=== PATIENT | male | born 1965 | race Hispanic/Latino ===

== ENCOUNTER 2025-01-09 12:24 | Inpatient (IN) | payer SELFPAY ==
[2025-01-09] VITALS (14 sets, daily range): BP systolic 92–149; BP diastolic 41–73; PULSE 62–71; RESP 14–21; TEMP 98–98.6; O2SAT 99
[2025-01-09 19:30] LABS: IMMATURE GRANULOCYTE ABSOLUTE 0.02 K/uL (0-1); NUCLEATED RED BLOOD CELLS 0.0 % (0.0-0.19); PLATELET COUNT (AUTO) 246 K/uL (130-400); RED BLOOD CELL COUNT(AUTO) 3.79 MIL/uL (4.50-6.20); RED CELL DISTRIBUTION WIDTH 12.4 % (11.0-15.5); WHITE BLOOD COUNT (AUTO) 8.1 K/uL (4.8-10.8)
[2025-01-09 19:46] LABS: INR <= 0.93 (0.85-1.15)
--- NOTE | 2025-01-09 19:51 | HP ---
[facility] HISTORY AND PHYSICAL Date of Service: Jan 09, 2025 Time of Service: 19:51 HISTORY OF PRESENT ILLNESS: This is a 59-year-old Yoruba-speaking male with past medical history of hypertension and hyperlipidemia was transferred from [facility] possible fem-pop evaluation.As per patient he started having severe left foot pain 5 days ago and went to his PCP where he was advised to go to the ED for a possible DVT.While in [facility] a venous doppler was performed which revealed negative for DVT and an arterial doppler was also done and result showed total occlusion of the arterial ultrasound to the left proximal popliteal colloidal circulation .Reportedly patient developed intermittent claudication of left foot and a cardiology was consulted .Patient underwent an ultrasound guided vascular access of the right common femoral artery angiography in common femoral artery with run off to right foot ,abdominal aortogram with bilateral iliofemoral runoff ,selective left lower extremity angioraphy with femoral artery runoff to the left foot ,intravascular ultrasound to left SFA /popliteal artery mechanical thrombectomy for left popliteal thrombus, percutaneous transluminal angiography to the left popliteal artery with balloon bringing down the stenosis to 10% and FINISHING OPERATOR to the left posterior tibial artery with balloon bringing down the stenosis from 70% to less than 10% as per doc umentation report.Patient was started on heparin and nitroglycerin drip per cardio recommendation to improve the flow.As per documented report ,popliteal artery collapsed again but patient still has a flow in the lower extremity but slow due to his severe microvascular disease in the foot ,hence patient need to be transferred for a thrombectomy versus bypass surgery evaluation. was then consulted prior to the transfer as per report and patient was accepted by Dr.Mamachen Call. Patient reports he smokes 1 pack of cigarette every 2 days x 15 years and drinks 3 beers every weekend. Seen and examined patient in room 210 awake,alert and coherent,denies chest pain ,palpitation,cough,fever and shortness of breath. Latest vital signs temperature 98.1, heart rate 70, blood pressure 149/41 saturation 97% on room air. Patient remain in ICU on nitro and heparin drip. We will admit patient for further medical management. REVIEW OF SYSTEMS CONSTITUTIONAL: Denies fevers, chills, or night sweats. No unintentional weight loss reported. NEUROLOGICAL: Denies headache, amaurosis fugax, motor weakness, sensory deficit, vertigo/spinning sensation, gait abnormalities, or tremors. ENT: No hearing loss, otalgia, otorrhea, rhinitis, rhinorrhea, hoarseness, or sore throat. CARDIOVASCULAR: Denies any exertional angina, dyspnea on exertion, orthopnea, paroxysmal nocturnal dyspnea, palpitations, life-threatening arrhythmias, claudication. PULMONARY: Denies any shortness of breath, cough, phlegm/sputum, hemoptysis, pleuritic chest pain. SLEEP: Denies morning headaches, daytime somnolence or napping. Denies difficulty falling asleep, staying asleep, waking from sleep. Denies knowledge of snoring. GASTROINTESTINAL: Denies any type of dysphagia to either liquids or solids. Denies nausea, vomiting, pyrosis, early satiety, abdominal pain, diarrhea, constipation, or changes in stool consistency or caliber. Denies coffee-ground emesis, hematemesis, hematochezia, or melanotic stools. GENITOURINARY: Denies frequency, urgency, nocturia, hematuria or incontinence (Storage/Irritative symptoms.) Low urinary stream, straining to void, urinary intermittency or hesitancy, splitting of the voiding stream, terminal dribbling. ENDOCRINOLOGIC: Denies polyuria, polydipsia, polyphagia or heat/cold intolerances. HEMATOLOGIC: Denies thrombophilia/previous clots, or coagulopathy/bleeding dis orders. ONCOLOGIC: Denies personal history of malignancy. DERMATOLOGIC: Denies rashes or pruritus. PSYCHIATRIC: Denies any suicidal or homicidal ideation. Denies hallucinations. PAST MEDICAL HISTORY: [ Hypertension and hyperlipidemia ] PAST SURGICAL HISTORY: [ Patient denies ] PAST SOCIAL HISTORY: [ Patient admits to smoking one pack of cigarette every two days 15 years and occasionally drinks three beers per weekend denies recreational drug use ] FAMILY HISTORY: [ Noncontributory ] Coded Allergies: No Known Drug Allergies (Unverified Allergy, Unknown, 01/09/25) PHYSICAL EXAM GENERAL APPEARANCE: The patient is awake, alert, and oriented, in no acute cardiopulmonary distress. NEUROLOGICAL: Cranial nerves II-XII grossly intact. Motor is 5/5 in bilateral upper and lower extremities proximal to distal. No sensory deficits. HEENT: Face is symmetric. Pupils are equal and reactive. Extraocular movements are intact. NECK: Supple. No JVD. No thyromegaly. No submental, submandibular, pre- /postauricular, occipital or supraclavicular lymphadenopathy. CHEST: Normal chest expansion. No Telemetry. LUNGS: Absence of any rales, rhonchi or any wheezing. CARDIOVASCULAR: Regular. S1 and S2 normal. No appreciable rubs, murmurs or gallops. ABDOMEN: Soft, nontender, and nondistended. There is no rebound, voluntary guarding, or rigidity. : Deferred. No Swenson. EXTREMITIES: Non-edematous and not cyanotic. No clubbing. left foot pale in color ,pedal pulse per doppler SKIN: No skin breakdown. Vital Sign (Last 24 Hours) 01/09/25 01/09/25 18:15 18:45 Temp 98.1 Pulse 70 Resp 20 B/P (MAP) 149/41 (77) Pulse Ox 97 LABS: Laboratory: Test 01/09/25 19:18 Range/Units White Blood Count 8.1 4.8-10.8 K/uL Red Blood Count 3.79 L 4.50-6.20 MIL/uL Hemoglobin 12.0 L 14.0-18.0 g/dL Hematocrit 35.4 L 42-54 % Mean Corpuscular Volume 93.4 79-99 fL Mean Corpuscular Hemoglobin 31.7 27.0-33.0 pg Mean Corpuscular Hemoglobin Concent 33.9 32.0-36.0 g/dL Red Cell Distribution Width 12.4 11.0-15.5 % Platelet Count 246 130-400 K/uL Mean Platelet Volume 10.0 7.5-10.5 fL Immature Granulocyte % (Auto) 0.2 0-1 % Neutrophils (%) (Auto) 55.8 40.0-77.0 % Lymphocytes (%) (Auto) 34.8 21.0-51.0 % Monocytes (%) (Auto) 6.6 3.0-13.0 % Eosinophils (%) (Auto) 1.9 0.0-8.0 % Basophils (%) (Auto) 0.7 0.0-5.0 % Neutrophils # (Auto) 4.5 1.8-7.7 K/uL Lymphocytes # (Auto) 2.8 1.0-4.8 K/uL Monocytes # (Auto) 0.5 0.1-1.0 K/uL Eosinophils # (Auto) 0.15 0.00-0.70 K/uL Basophils # (Auto) 0.06 0.00-0.20 K/uL Absolute Immature Granulocyte (auto 0.02 0-1 K/uL Nucleated Red Blood Cells 0.0 0.0-0.19 % Prothrombin Time 9.9 9.6-11.6 SEC Prothromb Time International Ratio <= 0.93 0.85-1.15 Activated Partial Thromboplast Time 43.0 H 26.3-35.5 SEC Hemoglobin A1c 6.1 H 4.0-6.0 % Estimated Average Glucose (eAG) 128 H 70-126 mg/dL Current Medications Medications (Trade) Dose Ordered Sig/Zac Route PRN Reason Start Time Stop Time Status Last Admin Dose Admin Acetaminophen (TYLenol 325MG TAB) 650 mg Q6H PRN PO MILD PAIN (1-3) 01/09/25 19:30 02/08/25 19:29 Albuterol (DUOneb) 1 udvial Q6H PRN IH SHORTNESS OF BREATH 01/09/25 19:30 02/08/25 19:29 Famotidine (Pepcid 20mg Vial) 20 mg BID IV 01/09/25 21:00 02/08/25 20:59 Heparin Sodium/ Dextrose 250 ml @ 0 mls/hr Q6H IV 01/09/25 20:00 02/08/25 19:59 Morphine Sulfate (morPHINE 2MG SYG) 2 mg Q6H PRN IVP SEVERE PAIN (7-10) 01/09/25 19:30 01/16/25 19:29 Ondansetron HCl (zoFRAN 4MG INJ) 4 mg Q6H PRN IVP NAUSEA/VOMITING 01/09/25 19:30 02/08/25 19:29 Sodium Chloride 1,000 ml @ 50 mls/hr Q20H IV 01/09/25 19:30 02/08/25 19:29 DIAGNOSTICS / RADIOLOGY: [ ] ASSESSMENT: Peripheral arterial disease POA Peripheral vascular disease POA S/P peripheral angogram with FINISHING OPERATOR POA Left proximal popliteal artery occlusion POA Worsening intermittent claudication POA Essential Hypertension POA Hyperlipidemia POA Coronary artery disease POA Hyperglycemia POA Nicotine dependence POA Alcoholism POA PLAN: Patient is admitted in ICU on nitroglycerin and heparin drip We will start on heart healthy diet We will start famotidine 20 mg p.o. daily for GI prophylaxis We will replace electrolytes as needed per protocol We will start on insulin sliding scale AC & HS with hypoglycemia protocol We will add prn medication for fever,pain,cough , nausea and vomiting We will reconcile home meds once medlist available Cardiovascular surgeon consulted pending evaluation We will seek Cardiology consultation Counseled on smoking and alcohol use cessation Neurovascular check We will request labs in am Further orders to follow depending on above results Case discussed with attending physician and came up with above treatment and plan of care. ADVANCED CARE PLANNING 1. Which of the following were discussed? Hospice Care - No Therapeutic options - Yes Advance Directives - No Other discussions - 2. Discussed with who? Patient 3. Voluntary nature of this service was explained to the patient? Yes 4. Amount of time spent - ___26 min____ 5. Reviewed by Physician? (if this service was performed by NPP) Yes Patient seen and examined by me. Agree with note by MACHINIST OUTSIDE SEE ADDITIONAL ORDERS PER CHART DISCUSSED WITH NURSING STAFF TIERRA RADFORD MOTOR EXPRESS CLERK Jan 09, 2025 19:51
[2025-01-09 19:59] LABS: ASPARTATE AMINOTRANSFERASE 15.0 U/L (10-37); CREATINE KINASE, TOTAL 28.0 U/L (21-232); CREATININE 0.9 mg/dL (0.5-1.3); GLOMERULAR FILTR. RATE CALC 100.0 mL/min (>90); GLUCOSE,RANDOM 108.0 mg/dL (70-105); LDL DIRECT 93.0 mg/dL (0-99); SODIUM SERUM 139.0 mmol/L (136-145); TOTAL PROTEIN, SERUM 6.5 g/dL (6.0-8.3); UREA NITROGEN, BLOOD 14.0 mg/dL (7-18)
[2025-01-09] MEDS ORDERED: CARV3.12 PO (20:19)
[2025-01-09] MEDS ORDERED: GABA-529 PO (20:19)
[2025-01-09] MEDS ORDERED: AMLO-258 PO (20:19)
[2025-01-09] MEDS ORDERED: ATOR40TA71 PO (20:19)
[2025-01-09] MEDS: 0.9%NACL 1000ML 1,000 ML IV SCH (20:53)
[2025-01-09] MEDS: FAMOTIDINE 20MG VIAL IV SCH (20:53)
[2025-01-10] VITALS (54 sets, daily range): BP systolic 101–155; BP diastolic 58–78; PULSE 59–75; RESP 12–26; TEMP 97.8–98.8; O2SAT 99
[2025-01-10 03:29] LABS: IMMATURE GRANULOCYTE ABSOLUTE 0.02 K/uL (0-1); NUCLEATED RED BLOOD CELLS 0.0 % (0.0-0.19); PLATELET COUNT (AUTO) 234 K/uL (130-400); RED BLOOD CELL COUNT(AUTO) 3.85 MIL/uL (4.50-6.20); RED CELL DISTRIBUTION WIDTH 12.3 % (11.0-15.5); WHITE BLOOD COUNT (AUTO) 7.2 K/uL (4.8-10.8)
[2025-01-10 03:45] LABS: CREATININE 0.9 mg/dL (0.5-1.3); GLOMERULAR FILTR. RATE CALC 100.0 mL/min (>90); GLUCOSE,RANDOM 102.0 mg/dL (70-105); SODIUM SERUM 143.0 mmol/L (136-145); UREA NITROGEN, BLOOD 12.0 mg/dL (7-18)
[2025-01-10] MEDS ORDERED: amLODIPine 5 MG TAB PO SCH (09:00)
[2025-01-10] MEDS: MULTIVITAMIN TABLET PO SCH (09:02)
--- NOTE | 2025-01-10 09:17 | NUR ---
[facility] ICU Skin Assessment: Patient assessed by wound healing team. Patient with no wounds or skin breakdown noted. Assessment and recommendations provided to primary nurse. Education provided. Addendum: 01/10/25 at 1145 by FERNY STAHL RN RN/ Amended: Links added.
--- NOTE | 2025-01-10 10:40 | NUR ---
DCP:HOME Pt currently lives with sps. pt does not have any DME, home health, or provider services. Pt states that he is able to complete ADLs independently. Pt does not have a PCP however does already have an appointment with [facility] [place] [facility] pt will want to go home and family can assist with transportation. Addendum: 01/10/25 at 1042 by SOLO EDEN SS Amended: Links added.
--- NOTE | 2025-01-10 10:50 | PN ---
[facility] PROGRESS NOTE Date of Service: Jan 10, 2025 Time of Service: 10:30 SUBJECTIVE: This is a 59-year-old Sammarinese-speaking male with past medical history of hypertension and hyperlipidemia was transferred from [facility] possible fem-pop evaluation.As per patient he started having severe left foot pain 5 days ago and went to his PCP where he was advised to go to the ED for a possible DVT.While in [facility] a venous doppler was performed which revealed negative for DVT and an arterial doppler was also done and result showed total occlusion of the arterial ultrasound to the left proximal popliteal colloidal circulation .Reportedly patient developed intermittent claudication of left foot and a cardiology was consulted .Patient underwent an ultrasound guided vascular access of the right common femoral artery angiography in common femoral artery with run off to right foot ,abdominal aortogram with bilateral iliofemoral runoff ,selective left lower extremity angioraphy with femoral artery runoff to the left foot ,intravascular ultrasound to left SFA /popliteal artery mechanical thrombectomy for left popliteal thrombus, percutaneous transluminal angiography to the left popliteal artery with balloon bringing down the stenosis to 10% and DIRECTOR OF CONSUMER AFFAIRS to the left posterior tibial artery with balloon bringing down the stenosis from 70% to less than 10% as per documentation report.Patient was started on heparin and nitroglycerin drip per cardio recommendation to improve the flow.As per documented report ,popliteal artery collapsed again but patient still has a flow in the lower extremity but slow due to his severe microvascular disease in the foot ,hence patient need to be transferred for a thrombectomy versus bypass surgery evaluation. was then consulted prior to the transfer as per report and patient was accepted by Dr.Mamachen Call. Patient reports he smokes 1 pack of cigarette every 2 days x 15 years and drinks 3 beers every weekend. Seen and examined patient in room 210 awake,alert and coherent,denies chest pain ,palpitation,cough,fever and shortness of breath. Latest vital signs temperature 98.1, heart rate 70, blood pressure 149/41 saturation 97% on room air. Patient remain in ICU on nitro and heparin drip. 01/10 The patient is seen and examined in room 210. As the patient is only Sammarinese speaking, therefore a nurse was used as a control integration engineer. The patient said that he was feeling. Today. He is continued on the IV heparin therefore the patient is in ICU. Cardiovascular and cardiology consulted. Anterior and posterior pedis pulses were checked by Doppler. Left foot had stronger posterior pedis as compared to anterior pedis pulse and right foot had stronger anterior pedis compared to posterior pedis. As per cardiology the patient had NSTEMI approximately 2 wk ago in 12/2024, and coronary angiogram approximately 2 weeks ago demonstrating nonobstructive CAD, and claudication was sent to [facility] by his PCP for further evaluation of left lower extremity discomfort and discoloration. DVT was reportedly ruled out for the left lower extremity. Left lower extremity arterial ultrasound was reported to have a total occlusion of the left proximal popliteal artery with collateral circulation and distal popliteal reconstitution with monophasic waveforms distally. He underwent a peripheral angiogram of the left lower extremity on 12/30/[address] Nicole Preciado, s/p successful mechanical thrombectomy followed by balloon angioplasty of the left popliteal artery and successful DIRECTOR OF CONSUMER AFFAIRS to the left posterior tibial artery. Repeat left lower extremity arterial Doppler on 01/08/2025 revealed monophasic waveforms from the mid and distal superficial femoral artery to the dorsalis pedis artery, no appreciable flow within the popliteal artery consistent with complete occlusion. The patient was transferred to [facility] for evaluation by CV surgery for a fem-pop. Cardiology recommend to keep DAPT on hold and continue heparin infusion. They also ordered to obtain coronary angiogram, echocardiogram, and cardiology notes from MRMS. Cardiovascular surgery ordered CT angio abdominal aorta. REVIEW OF SYSTEMS CONSTITUTIONAL: Denies fevers, chills, or night sweats. No unintentional weight loss reported. NEUROLOGICAL: Denies headache, amaurosis fugax, motor weakness, sensory deficit, vertigo/spinning sensation, gait abnormalities, or tremors. ENT: No hearing loss, otalgia, otorrhea, rhinitis, rhinorrhea, hoarseness, or sore throat. CARDIOVASCULAR: Denies any exertional angina, dyspnea on exertion, orthopnea, paroxysmal nocturnal dyspnea, palpitations, life-threatening arrhythmias, claudication. PULMONARY: Denies any shortness of breath, cough, phlegm/sputum, hemoptysis, pleuritic chest pain. SLEEP: Denies morning headaches, daytime somnolence or napping. Denies difficulty falling asleep, staying asleep, waking from sleep. Denies knowledge of snoring. GASTROINTESTINAL: Denies any type of dysphagia to either liquids or solids. Denies nausea, vomiting, pyrosis, early satiety, abdominal pain, diarrhea, constipation, or changes in stool consistency or caliber. Denies coffee-ground emesis, hematemesis, hematochezia, or melanotic stools. GENITOURINARY: Denies frequency, urgency, nocturia, hematuria or incontinence (Storage/Irritative symptoms.) Low urinary stream, straining to void, urinary intermittency or hesitancy, splitting of the voiding stream, terminal dribbling. ENDOCRINOLOGIC: Denies polyuria, polydipsia, polyphagia or heat/cold intolerances. PHYSICAL EXAM GENERAL APPEARANCE: The patient is awake, alert, and oriented, in no acute cardiopulmonary distress. NEUROLOGICAL: Cranial nerves II-XII grossly intact. Motor is 5/5 in bilateral upper and lower extremities proximal to distal. No sensory deficits. HEENT: Face is symmetric. Pupils are equal and reactive. Extraocular movements are intact. NECK: Supple. No JVD. No thyromegaly. No submental, submandibular, pre- /postauricular, occipital or supraclavicular lymphadenopathy. CHEST: Normal chest expansion. No Telemetry. LUNGS: Absence of any rales, rhonchi or any wheezing. CARDIOVASCULAR: Regular. S1 and S2 normal. No appreciable rubs, murmurs or gallops. ABDOMEN: Soft, nontender, and nondistended. There is no rebound, voluntary guarding, or rigidity. : Deferred. No Swenson. EXTREMITIES: Non-edematous and not cyanotic. Left foot: Stronger posterior pedis as compared to anterior pedis. Right foot: Stronger anterior pedis compared to posterior pedis SKIN: No skin breakdown. Vital Signs (last 8hr) Date Time Temp Pulse Resp B/P (MAP) Pulse Ox O2 Delivery O2 Flow Rate FiO2 01/10/25 09:35 01/10/25 09:02 106/65 01/10/25 08:54 62 18 121/68 (85) 97 01/10/25 08:46 63 18 96 01/10/25 08:39 59 18 117/64 (81) 96 01/10/25 08:31 61 18 96 01/10/25 08:24 62 21 114/69 (84) 96 01/10/25 08:16 61 20 96 01/10/25 08:09 60 18 104/65 (78) 98 01/10/25 08:01 64 22 98 01/10/25 08:00 99 Room Air* 0 21 01/10/25 08:00 98.8 01/10/25 08:00 98.8 68 15 98 Room Air 01/10/25 07:54 68 12 120/78 (92) 98 01/10/25 07:46 62 20 97 01/10/25 07:39 61 20 116/66 (83) 97 01/10/25 07:31 61 20 97 01/10/25 07:24 64 20 116/66 (83) 96 01/10/25 07:16 61 21 99 01/10/25 07:09 62 21 110/65 (80) 97 01/10/25 07:01 62 18 96 01/10/25 06:54 64 19 109/62 (78) 96 01/10/25 06:46 62 20 97 01/10/25 06:45 01/10/25 05:00 60 16 106/65 95 Room Air 01/10/25 04:00 99 Room Air* 0 21 01/10/25 04:00 97.9 60 20 114/72 96 Room Air 01/10/25 03:00 60 14 122/64 97 Room Air LABS: Laboratory: Test 01/10/25 03:24 01/09/25 19:18 Range/Units White Blood Count 7.2 4.8-10.8 K/uL Red Blood Count 3.85 L 4.50-6.20 MIL/uL Hemoglobin 12.1 L 14.0-18.0 g/dL Hematocrit 35.7 L 42-54 % Mean Corpuscular Volume 92.7 79-99 fL Mean Corpuscular Hemoglobin 31.4 27.0-33.0 pg Mean Corpuscular Hemoglobin Concent 33.9 32.0-36.0 g/dL Red Cell Distribution Width 12.3 11.0-15.5 % Platelet Count 234 130-400 K/uL Mean Platelet Volume 9.6 7.5-10.5 fL Immature Granulocyte % (Auto) 0.3 0-1 % Neutrophils (%) (Auto) 45.6 40.0-77.0 % Lymphocytes (%) (Auto) 43.9 21.0-51.0 % Monocytes (%) (Auto) 6.8 3.0-13.0 % Eosinophils (%) (Auto) 2.4 0.0-8.0 % Basophils (%) (Auto) 1.0 0.0-5.0 % Neutrophils # (Auto) 3.3 1.8-7.7 K/uL Lymphocytes # (Auto) 3.2 1.0-4.8 K/uL Monocytes # (Auto) 0.5 0.1-1.0 K/uL Eosinophils # (Auto) 0.17 0.00-0.70 K/uL Basophils # (Auto) 0.07 0.00-0.20 K/uL Absolute Immature Granulocyte (auto 0.02 0-1 K/uL Nucleated Red Blood Cells 0.0 0.0-0.19 % Activated Partial Thromboplast Time 74.7 #H 26.3-35.5 SEC Sodium Level 143 136-145 mmol/L Potassium Level 3.8 3.5-5.1 mmol/L Chloride Level 106 101-111 mmol/L Carbon Dioxide Level 32 21-32 mmol/L Blood Urea Nitrogen 12 7-18 mg/dL Creatinine 0.9 0.5-1.3 mg/dL Glomerular Filtration Rate Calc 100 >90 mL/min Random Glucose 102 70-105 mg/dL Total Calcium 8.7 8.5-10.1 mg/dL Prothrombin Time 9.9 9.6-11.6 SEC Prothromb Time International Ratio <= 0.93 0.85-1.15 Hemoglobin A1c 6.1 H 4.0-6.0 % Estimated Average Glucose (eAG) 128 H 70-126 mg/dL Magnesium Level 2.00 1.80-2.40 mg/dL Total Bilirubin 0.2 0.2-1.0 mg/dL Aspartate Amino Transf (AST/SGOT) 15 10-37 U/L Alanine Aminotransferase (ALT/SGPT) 22 12-78 U/L Alkaline Phosphatase 78 50-136 U/L Total Creatine Kinase 28 21-232 U/L C-Reactive Protein, Quantitative 15.40 H 0.5-3.0 mg/L Total Protein 6.5 6.0-8.3 g/dL Albumin 3.5 3.5-5.0 g/dL Triglycerides Level 608 H 30-200 mg/dL Cholesterol Level 195 <200 mg/dL LDL Cholesterol 93 0-99 mg/dL HDL Cholesterol 28 L 29-71 mg/dL Procalcitonin < 0.05 L 0.05-0.5 ng/mL Thyroid Stimulating Hormone (TSH) 1.74 0.36-3.74 uIU/mL Current Medications Medications (Trade) Dose Ordered Sig/Zac Route PRN Reason Start Time Stop Time Status Last Admin Dose Admin Acetaminophen (TYLenol 325MG TAB) 650 mg Q6H PRN PO MILD PAIN (1-3) 01/09/25 19:30 02/08/25 19:29 01/09/25 20:53 650 MG Albuterol (DUOneb) 1 udvial Q6H PRN IH SHORTNESS OF BREATH 01/09/25 19:30 02/08/25 19:29 Amlodipine Besylate (NorvASC 5MG TAB) 10 mg DAILY PO 01/10/25 09:00 01/10/25 05:49 DC Atorvastatin Calcium (LIPItor 40MG) 40 mg HS PO 01/10/25 21:00 02/09/25 20:59 Carvedilol (Coreg 3.125MG) 3.125 mg BID PO 01/10/25 09:00 02/09/25 08:59 01/10/25 09:02 3.125 MG Famotidine (Pepcid 20mg Vial) 20 mg BID IV 01/09/25 21:00 02/08/25 20:59 01/10/25 09:02 20 MG Gabapentin (NEURontin 100 mg CAP) 200 mg BID PO 01/10/25 09:00 02/09/25 08:59 01/10/25 09:02 200 MG Heparin Sodium (Porcine) (HEParin 5,000 UNIT VIAL) 2,700 unit ONCE IV 01/09/25 20:30 01/09/25 23:59 DC 01/09/25 20:56 2,700 UNIT Heparin Sodium/ Dextrose 250 ml @ 0 mls/hr Q6H IV 01/09/25 20:00 02/08/25 19:59 01/10/25 03:50 9.85 MLS/HR Morphine Sulfate (morPHINE 2MG SYG) 2 mg Q6H PRN IVP SEVERE PAIN (7-10) 01/09/25 19:30 01/16/25 19:29 Multivitamins Therapeutic (Multivitamin Tablet) 1 tab DAILY PO 01/10/25 09:00 02/09/25 08:59 01/10/25 09:02 1 TAB Ondansetron HCl (zoFRAN 4MG INJ) 4 mg Q6H PRN IVP NAUSEA/VOMITING 01/09/25 19:30 02/08/25 19:29 Sodium Chloride 1,000 ml @ 50 mls/hr Q20H IV 01/09/25 19:30 02/08/25 19:29 01/09/25 20:53 50 MLS/HR DIAGNOSTICS / RADIOLOGY: [ ] ASSESSMENT: Peripheral arterial disease POA Peripheral vascular disease POA S/P peripheral angogram with DIRECTOR OF CONSUMER AFFAIRS POA Left proximal popliteal artery occlusion POA Worsening intermittent claudication POA Essential Hypertension POA Hyperlipidemia POA Coronary artery disease POA Hyperglycemia POA Nicotine dependence POA Alcoholism POA PLAN: Peripheral arterial disease, Peripheral vascular disease, S/P peripheral angiogram with DIRECTOR OF CONSUMER AFFAIRS , Left proximal popliteal artery occlusion, Worsening intermittent claudication * Cardiovascular surgeon and Cardiology consulted for evaluation for femoral popliteal bypass surgery * On carvedilol 3.125 b.i.d. and gabapentin 200 mg b.i.d., amlodipine mg * As per cardiology, keep DAPT on hold and continue heparin infusion * Obtain coronary angiogram, echocardiogram, and cardiology notes from MRMS * Cardiovascular ordered CT angio abdominal aorta Hyperlipidemia * Lipid profile showed triglycerides 0 8, total cholesterol 195, LDL 93, and HDL 28. * Patient is continued on atorvastatin 40 mg home medications ATTESTATION BY PHYSICIAN I have seen and examined the patient. I reviewed the documentation, medical decision making, and treatment plan as noted by the resident physician above. I agree with the findings and plan of care. MAG RESTREPO MD, SYED M MD Jan 10, 2025 10:50
--- NOTE | 2025-01-10 13:55 | CONS ---
[facility] CARDIOLOGY CONSULTATION REPORT Consultation note dictated for Jerrod Wynne MD Primary sales counselor: Dr. Christiansen Date Patient Seen: Jan 10, 2025 Time of Visit: 13:20 Requesting Physician: Lauren Herring MD Reason for Consultation: PAD, pending evaluation for fem-pop History of Present Illness: This is a 59-year-old male with a past medical history of hypertension, hyperlipidemia, past tobacco abuse with cessation 5 months ago, NSTEMI approximately 2 wk ago in 12/2024, and coronary angiogram approximately 2 weeks ago demonstrating nonobstructive CAD, and claudication was sent to [facility] by his PCP for further evaluation of left lower extremity discomfort and discoloration. DVT and was reportedly ruled out for the left lower extremity. Left lower extremity arterial ultrasound was reported to have a total occlusion of the left proximal popliteal artery with collateral circulation and distal popliteal reconstitution with monophasic waveforms distally. He underwent a peripheral angiogram of the left lower extremity on 12/30/[address] Nicole Preciado, s/p successful mechanical thrombectomy followed by balloon angioplasty of the left popliteal artery and successful [employer] DES[employer] to the left posterior tibial artery. Repeat left lower extremity arterial Doppler on 01/08/2025 revealed monophasic waveforms from the mid and distal superficial femoral artery to the dorsalis pedis artery, no appreciable flow within the popliteal artery consistent with complete occlusion. The patient was transferred to [facility] for evaluation by CV surgery for a fem-pop. The patient remains on a Heparin infusion. Left AT and PT pulses by Doppler, foot is warm to touch. Past Medical History: As per HPI and summarized below Past Surgical History: None Family History: Noncontributory Social History: The patient lives with his . Habits: The patient denies alcohol, tobacco, or illicit drug use. Home Meds: Amlodipine 10 mg daily Atorvastatin 40 mg q.h.s. Carvedilol 3.125 mg b.i.d. Gabapentin 200mg b.i.d. Current Meds: Current Medications Medications Dose Ordered Sig/Zac Start Time Stop Time Status Last Admin Acetaminophen 650 mg Q6H PRN 01/09/25 19:30 02/08/25 19:29 01/09/25 20:53 Ondansetron HCl 4 mg Q6H PRN 01/09/25 19:30 02/08/25 19:29 Sodium Chloride 1,000 ml @ 50 mls/hr Q20H 01/09/25 19:30 02/08/25 19:29 01/10/25 14:19 Albuterol 1 udvial Q6H PRN 01/09/25 19:30 02/08/25 19:29 Morphine Sulfate 2 mg Q6H PRN 01/09/25 19:30 01/16/25 19:29 Heparin Sodium/ Dextrose 250 ml @ 0 mls/hr Q6H 01/09/25 20:00 02/08/25 19:59 01/10/25 03:50 Famotidine 20 mg BID 01/09/25 21:00 02/08/25 20:59 01/10/25 09:02 Multivitamins Therapeutic 1 tab DAILY 01/10/25 09:00 02/09/25 08:59 01/10/25 09:02 Atorvastatin Calcium 40 mg HS 01/10/25 21:00 02/09/25 20:59 Carvedilol 3.125 mg BID 01/10/25 09:00 02/09/25 08:59 01/10/25 09:02 Gabapentin 200 mg BID 01/10/25 09:00 02/09/25 08:59 01/10/25 09:02 Review of Systems: CONST: Admits to left lower extremity claudication with ambulation EYES: No recent vision problems. ENT: No congestion, ear pain, or sore throat. C/V: No chest pain, palpitations, or edema. RESP: No cough, congestion, wheezing or shortness of breath. GI: No abdominal pain, nausea, vomiting, constipation, or diarrhea. : No incontinence or dysuria. SKIN: No rash. NEURO: No headache, focal numbness or weakness, dizziness, or seizures. PSYCH: No depression or anxiety. HEME: No abnormal bruising or bleeding. LYMPH: No swollen glands. Physical Examination: GENERAL: No acute distress. HEAD: Normal with no signs of head trauma. EYES: Conjunctiva and sclera normal. ENT: Hearing grossly intact, normal oropharynx. NECK: Supple without JVD. TNormal carotid upstrokes without bruits. LUNGS: Clear breath sounds bilaterally. No wheezes, or rhonchi. HEART: Normal rate and rhythm. Normal S1 and S2 without murmurs, gallop or rub. VASC: Left ALMAZ and PT pulse by Doppler. Right AT pulse 2 +. ABD: Bowel sounds normal, soft, nontender, no masses, no organomegaly. No audible bruits. : Not examined LYMPH: No lymphadenopathy noted. EXT: No clubbing, cyanosis or edema. SKIN: Right groin dressing discontinued, site is without hematoma or ecchymosis. NEURO: Awake, alert, and oriented x3. No focal sensory or strength deficits noted. Vital Signs (last 8hr) Date Time Temp Pulse Resp B/P (MAP) Pulse Ox O2 Delivery O2 Flow Rate FiO2 01/10/25 10:09 63 18 105/63 (77) 97 01/10/25 10:05 64 18 96 01/10/25 09:54 65 18 117/66 (83) 98 01/10/25 09:50 73 18 97 01/10/25 09:39 67 18 117/67 (84) 98 01/10/25 09:35 01/10/25 09:35 65 18 98 01/10/25 09:02 106/65 01/10/25 08:54 62 18 121/68 (85) 97 01/10/25 08:46 63 18 96 01/10/25 08:39 59 18 117/64 (81) 96 01/10/25 08:31 61 18 96 01/10/25 08:24 62 21 114/69 (84) 96 01/10/25 08:16 61 20 96 01/10/25 08:09 60 18 104/65 (78) 98 01/10/25 08:01 64 22 98 01/10/25 08:00 99 Room Air* 0 21 01/10/25 08:00 98.8 01/10/25 08:00 98.8 68 15 98 Room Air 01/10/25 07:54 68 12 120/78 (92) 98 01/10/25 07:46 62 20 97 01/10/25 07:39 61 20 116/66 (83) 97 01/10/25 07:31 61 20 97 01/10/25 07:24 64 20 116/66 (83) 96 01/10/25 07:16 61 21 99 01/10/25 07:09 62 21 110/65 (80) 97 01/10/25 07:01 62 18 96 01/10/25 06:54 64 19 109/62 (78) 96 01/10/25 06:46 62 20 97 01/10/25 06:45 Laboratory: Hematology Labs: Test 01/10/25 03:24 Range/Units White Blood Count 7.2 4.8-10.8 K/uL Red Blood Count 3.85 L 4.50-6.20 MIL/uL Hemoglobin 12.1 L 14.0-18.0 g/dL Hematocrit 35.7 L 42-54 % Mean Corpuscular Volume 92.7 79-99 fL Mean Corpuscular Hemoglobin 31.4 27.0-33.0 pg Mean Corpuscular Hemoglobin Concent 33.9 32.0-36.0 g/dL Red Cell Distribution Width 12.3 11.0-15.5 % Platelet Count 234 130-400 K/uL Mean Platelet Volume 9.6 7.5-10.5 fL Immature Granulocyte % (Auto) 0.3 0-1 % Neutrophils (%) (Auto) 45.6 40.0-77.0 % Lymphocytes (%) (Auto) 43.9 21.0-51.0 % Monocytes (%) (Auto) 6.8 3.0-13.0 % Eosinophils (%) (Auto) 2.4 0.0-8.0 % Basophils (%) (Auto) 1.0 0.0-5.0 % Neutrophils # (Auto) 3.3 1.8-7.7 K/uL Lymphocytes # (Auto) 3.2 1.0-4.8 K/uL Monocytes # (Auto) 0.5 0.1-1.0 K/uL Eosinophils # (Auto) 0.17 0.00-0.70 K/uL Basophils # (Auto) 0.07 0.00-0.20 K/uL Absolute Immature Granulocyte (auto 0.02 0-1 K/uL Nucleated Red Blood Cells 0.0 0.0-0.19 % Chemistry Labs: Test 01/10/25 03:24 01/09/25 19:18 Range/Units Sodium Level 143 136-145 mmol/L Potassium Level 3.8 3.5-5.1 mmol/L Chloride Level 106 101-111 mmol/L Carbon Dioxide Level 32 21-32 mmol/L Blood Urea Nitrogen 12 7-18 mg/dL Creatinine 0.9 0.5-1.3 mg/dL Glomerular Filtration Rate Calc 100 >90 mL/min Random Glucose 102 70-105 mg/dL Total Calcium 8.7 8.5-10.1 mg/dL Hemoglobin A1c 6.1 H 4.0-6.0 % Estimated Average Glucose (eAG) 128 H 70-126 mg/dL Magnesium Level 2.00 1.80-2.40 mg/dL Total Bilirubin 0.2 0.2-1.0 mg/dL Aspartate Amino Transf (AST/SGOT) 15 10-37 U/L Alanine Aminotransferase (ALT/SGPT) 22 12-78 U/L Alkaline Phosphatase 78 50-136 U/L Total Creatine Kinase 28 21-232 U/L C-Reactive Protein, Quantitative 15.40 H 0.5-3.0 mg/L Total Protein 6.5 6.0-8.3 g/dL Albumin 3.5 3.5-5.0 g/dL Triglycerides Level 608 H 30-200 mg/dL Cholesterol Level 195 <200 mg/dL LDL Cholesterol 93 0-99 mg/dL HDL Cholesterol 28 L 29-71 mg/dL Procalcitonin < 0.05 L 0.05-0.5 ng/mL Thyroid Stimulating Hormone (TSH) 1.74 0.36-3.74 uIU/mL Coagulation Labs: Test 01/10/25 09:59 01/09/25 19:18 Range/Units Activated Partial Thromboplast Time 55.9 #H 26.3-35.5 SEC Prothrombin Time 9.9 9.6-11.6 SEC Prothromb Time International Ratio <= 0.93 0.85-1.15 Diagnostics / Radiology: Impression and Plan: PAD Hypertension Hyperlipidemia Past tobacco abuse with cessation 5 months ago NSTEMI approximately 2 wk ago in 12/2024 Coronary angiogram approximately 2 weeks ago demonstrating nonobstructive CAD Claudication PAD Left lower extremity arterial ultrasound was reported to have a total occlusion of the left proximal popliteal artery with collateral circulation and distal popliteal reconstitution with monophasic waveforms distally. Peripheral angiogram of the left lower extremity on 12/30/[address] Nicole Preciado, s/p successful mechanical thrombectomy followed by balloon angioplasty of the left popliteal artery and successful [employer]X INTER[employer] DES[employer]ER to the left posterior tibial artery. Repeat left lower extremity arterial Doppler on 01/08/2025 revealed monophasic waveforms from the mid and distal superficial femoral artery to the dorsalis pedis artery, no appreciable flow within the popliteal artery consistent with complete occlusion. -Pending evaluation by CV surgery for a fem-pop. -DAPT is on hold, continue Heparin infusion -Obtain coronary angiogram, echocardiogram, and cardiology notes from [facility] ATTESTATION BY PHYSICIAN I have seen and examined the patient. I reviewed the documentation, medical decision making, and treatment plan as noted by the mid-level provider above. I agree with the findings and plan of care. JERROD WYNNE MD, [facility] Jan 10, 2025 13:55 JERROD WYNNE MD Jan 10, 2025 16:08
[2025-01-10] MEDS: amLODIPine 5 MG TAB PO SCH (17:57)
[2025-01-10] MEDS ORDERED: IOHEXOL-350 50ML VIAL IV ONE (18:14)
[2025-01-10] MEDS ORDERED: IOHEXOL-350 75 ML VIAL IV ONE (18:14)
--- NOTE | 2025-01-10 18:16 | NUR ---
TAKEN DOWN TO CT SCAN ORDERED BY DR. BAL.
--- NOTE | 2025-01-10 20:56 | HMCIMG ---
EXAM: CTA Abdomen and Pelvis With Runoff to the Lower Extremities with Intravenous Contrast. CLINICAL HISTORY: Evaluation for occluded popliteal artery. TECHNIQUE: Axial CTA images of the abdomen, pelvis, and lower extremities with intravenous contrast in the arterial phase, with coronal and sagittal reformatted images generated and reviewed. 3D reformatted images were generated on an independent workstation and also reviewed. CONTRAST: Omnipaque [id number]. COMPARISON: None provided FINDINGS: VASCULATURE Aorta and Branches The abdominal aorta demonstrates eccentric atheromatous calcified plaques, causing approximately 20???30% luminal narrowing. No evidence of abdominal aortic aneurysm or dissection. The celiac trunk is patent without significant stenosis or occlusion. Superior mesenteric artery is patent without significant stenosis or occlusion. The inferior mesenteric artery is patent without significant stenosis or occlusion. The right renal artery shows eccentric atheromatous calcified plaque at the origin, causing approximately 20???30% luminal narrowing. The left renal artery is patent without significant stenosis. Right Lower Extremity Arterial System The right common iliac artery shows eccentric atheromatous calcific plaques causing approximately 20???30% luminal narrowing. The right external iliac artery shows eccentric atheromatous calcific plaques causing approximately 20???30% luminal narrowing. The right internal iliac artery shows eccentric atheromatous calcific plaques causing approximately 20???30% luminal narrowing. The right common femoral artery shows eccentric atheromatous calcified plaques causing approximately 20???30% luminal narrowing. The right profunda femoris artery shows eccentric atheromatous calcific plaques causing approximately 30???40% luminal narrowing. The right superficial femoral artery shows eccentric atheromatous calcific plaques causing approximately 30???40% luminal narrowing. The right popliteal artery shows eccentric atheromatous calcified plaques causing approximately 50???60% luminal narrowing. The right tibioperoneal trunk shows eccentric atheromatous calcific plaques causing approximately 50???60% luminal narrowing. There is non-opacification of the distal right posterior tibial artery with significantly attenuated luminal caliber, consistent with thrombosis. Left Lower Extremity Arterial System Left common iliac artery shows eccentric atheromatous calcific plaques, causing approximately 40???50% luminal narrowing. The left external iliac artery shows eccentric atheromatous calcific plaques causing approximately 20???30% luminal narrowing. Left internal iliac artery shows eccentric atheromatous calcific plaques causing approximately 20???30% luminal narrowing. The left common femoral artery shows eccentric atheromatous calcified plaques causing approximately 20???30% luminal narrowing. Left profunda femoris artery shows eccentric atheromatous calcific plaques causing approximately 30???40% luminal narrowing. Left superficial femoral artery shows eccentric atheromatous calcific plaques causing approximately 40???50% luminal narrowing. There is a short segment of near-complete luminal thrombosis of the left popliteal artery with recanalized flow in the distal segment. The remainder of the left popliteal artery shows eccentric atheromatous calcific plaques causing approximately 60???70% luminal narrowing. Left tibioperoneal trunk shows eccentric atheromatous calcific plaques causing approximately 60???70% luminal narrowing. Left anterior tibial artery origin shows eccentric atheromatous calcific plaques causing approximately 60???70% luminal narrowing. LOWER THORAX No basilar airspace consolidation. ABDOMEN The liver is unremarkable without a focal mass. No calcified gallstones or biliary ductal dilatation. The pancreas is normal. The spleen is unremarkable. No adrenal mass. The kidneys are enhanced symmetrically without hydronephrosis or a solid mass. There is colonic diverticulosis without diverticulitis. No bowel wall thickening or obstruction. The appendix appears normal. PELVIS The urinary bladder is unremarkable. Reproductive organs are unremarkable as visualized. No free fluid or free air is identified. No lymphadenopathy is seen. Multilevel moderate degenerative changes are seen in the spine without acute osseous abnormality. LOWER EXTREMITIES (Soft Tissues and Bones) Soft tissues are unremarkable. No lymphadenopathy is identified. No acute osseous abnormality. IMPRESSION: Near-complete occlusive thrombus in the left popliteal artery with distal recanalization. Thrombosis of the distal right posterior tibial artery. Multilevel severe atherosclerotic disease involving the bilateral iliac, femoral, popliteal, and tibial arterial systems, with the most significant stenoses involving the left popliteal artery (60???70%), left tibioperoneal trunk (60???70%), and left anterior tibial artery origin (60???70%). Mild to moderate luminal narrowing (20???50%) in the abdominal aorta, right renal artery origin, and remaining segments of the bilateral iliac and femoral arteries. Colonic diverticulosis without evidence of diverticulitis. Multilevel degenerative changes in the spine. /[place]
[2025-01-11] VITALS (9 sets, daily range): BP systolic 106–123; BP diastolic 57–66; PULSE 58–69; RESP 16–18; TEMP 97.6–98.6; O2SAT 96–99
[2025-01-11 05:22] LABS: IMMATURE GRANULOCYTE ABSOLUTE 0.01 K/uL (0-1); NUCLEATED RED BLOOD CELLS 0.0 % (0.0-0.19); PLATELET COUNT (AUTO) 236 K/uL (130-400); RED BLOOD CELL COUNT(AUTO) 3.96 MIL/uL (4.50-6.20); RED CELL DISTRIBUTION WIDTH 12.3 % (11.0-15.5); WHITE BLOOD COUNT (AUTO) 7.1 K/uL (4.8-10.8)
[2025-01-11 05:42] LABS: ASPARTATE AMINOTRANSFERASE 18.0 U/L (10-37); CREATININE 1.1 mg/dL (0.5-1.3); GLOMERULAR FILTR. RATE CALC 78.0 mL/min (>90); GLUCOSE,RANDOM 122.0 mg/dL (70-105); SODIUM SERUM 140.0 mmol/L (136-145); TOTAL PROTEIN, SERUM 6.6 g/dL (6.0-8.3); UREA NITROGEN, BLOOD 18.0 mg/dL (7-18)
--- NOTE | 2025-01-11 11:50 | CONS ---
TIME: 10:00 a.m. HISTORY OF PRESENT ILLNESS: The patient is a 59-year-old gentleman who had peripheral arterial disease, had interventions done at an outside facility, mainly percutaneous with reestablishment of flow down to the lower extremity. Unfortunately, his popliteal artery reoccluded and Vascular Surgery was consulted for further management. PHYSICAL EXAMINATION: NEUROLOGIC: Alert and oriented. CARDIOVASCULAR: S1, S2. Regular rate and rhythm. RESPIRATORY: Clear to auscultation bilaterally. ASSESSMENT AND PLAN: This is a 59-year-old gentleman with peripheral arterial disease including the popliteal artery on the left lower extremity and claudication. He will need a left femoral to posterior tibial bypass to bypass this occluded popliteal artery. I will explain the benefits and the risks including loss of limb, loss of light, bleeding, infection, stroke, and if he agrees, we will proceed with surgery in the upcoming days. TID: [id number] RECEIPT: [id number]
--- NOTE | 2025-01-11 19:29 | PN ---
[facility] PROGRESS NOTE Date of Service: Jan 11, 2025 Time of Service: 19:20 SUBJECTIVE: This is a 59-year-old Persian-speaking male with past medical history of hypertension and hyperlipidemia was transferred from [facility] possible fem-pop evaluation.As per patient he started having severe left foot pain 5 days ago and went to his PCP where he was advised to go to the ED for a possible DVT.While in [facility] a venous doppler was performed which revealed negative for DVT and an arterial doppler was also done and result showed total occlusion of the arterial ultrasound to the left proximal popliteal colloidal circulation .Reportedly patient developed intermittent claudication of left foot and a cardiology was consulted .Patient underwent an ultrasound guided vascular access of the right common femoral artery angiography in common femoral artery with run off to right foot ,abdominal aortogram with bilateral iliofemoral runoff ,selective left lower extremity angioraphy with femoral artery runoff to the left foot ,intravascular ultrasound to left SFA /popliteal artery mechanical thrombectomy for left popliteal thrombus, percutaneous transluminal angiography to the left popliteal artery with balloon bringing down the stenosis to 10% and WATER RESOURCE PROJECT MANAGER to the left posterior tibial artery with balloon bringing down the stenosis from 70% to less than 10% as per documentation report.Patient was started on heparin and nitroglycerin drip per cardio recommendation to improve the flow.As per documented report ,popliteal artery collapsed again but patient still has a flow in the lower extremity but slow due to his severe microvascular disease in the foot ,hence patient need to be transferred for a thrombectomy versus bypass surgery evaluation. was then consulted prior to the transfer as per report and patient was accepted by Dr.Mamachen Call. Patient reports he smokes 1 pack of cigarette every 2 days x 15 years and drinks 3 beers every weekend. Seen and examined patient in room 210 awake,alert and coherent,denies chest pain ,palpitation,cough,fever and shortness of breath. Latest vital signs temperature 98.1, heart rate 70, blood pressure 149/41 saturation 97% on room air. Patient remain in ICU on nitro and heparin drip. 01/10 The patient is seen and examined in room 210. As the patient is only Persian speaking, therefore a nurse was used as a tool profiling machine set up operator. The patient said that he was feeling. Today. He is continued on the IV heparin therefore the patient is in ICU. Cardiovascular and cardiology consulted. Anterior and posterior pedis pulses were checked by Doppler. Left foot had stronger posterior pedis as compared to anterior pedis pulse and right foot had stronger anterior pedis compared to posterior pedis. As per cardiology the patient had NSTEMI approximately 2 wk ago in 12/2024, and coronary angiogram approximately 2 weeks ago demonstrating nonobstructive CAD, and claudication was sent to [facility] by his PCP for further evaluation of left lower extremity discomfort and discoloration. DVT was reportedly ruled out for the left lower extremity. Left lower extremity arterial ultrasound was reported to have a total occlusion of the left proximal popliteal artery with collateral circulation and distal popliteal reconstitution with monophasic waveforms distally. He underwent a peripheral angiogram of the left lower extremity on 12/30/[address] Nicole Preciado, s/p successful mechanical thrombectomy followed by balloon angioplasty of the left popliteal artery and successful WATER RESOURCE PROJECT MANAGER to the left posterior tibial artery. Repeat left lower extremity arterial Doppler on 01/08/2025 revealed monophasic waveforms from the mid and distal superficial femoral artery to the dorsalis pedis artery, no appreciable flow within the popliteal artery consistent with complete occlusion. The patient was transferred to [facility] for evaluation by CV surgery for a fem-pop. Cardiology recommend to keep DAPT on hold and continue heparin infusion. They also ordered to obtain coronary angiogram, echocardiogram, and cardiology notes from MRMS. Cardiovascular surgery ordered CT angio abdominal aorta. 01/11/2025: Patient is seen in the room 224. Got CT angio g results ordered by cardiovascular surgeon, and it showed the following thinks it shows the near complete occlusive thrombus in the left popliteal artery with distal recanalization, thrombosis of the distal right posterior tibial artery, [id number] luminal narrowing in the abdominal aorta, right renal artery origin and multilevel degenerative changes in the spine. And he advised to that the patient will need a left femoral to posterior tibial bypass to bypass is occluded popliteal artery. And he is going to explained the benefits and the risks including the loss of limb, loss of light, bleeding, infection, stroke and if he agrees will proceed with surgery in the upcoming days. Examined soft tissue boil on the right shoulder scapula. REVIEW OF SYSTEMS CONSTITUTIONAL: Denies fevers, chills, or night sweats. No unintentional weight loss reported. NEUROLOGICAL: Denies headache, amaurosis fugax, motor weakness, sensory deficit, vertigo/spinning sensation, gait abnormalities, or tremors. ENT: No hearing loss, otalgia, otorrhea, rhinitis, rhinorrhea, hoarseness, or sore throat. CARDIOVASCULAR: Denies any exertional angina, dyspnea on exertion, orthopnea, paroxysmal nocturnal dyspnea, palpitations, life-threatening arrhythmias, claudication. PULMONARY: Denies any shortness of breath, cough, phlegm/sputum, hemoptysis, pleuritic chest pain. SLEEP: Denies morning headaches, daytime somnolence or napping. Denies difficulty falling asleep, staying asleep, waking from sleep. Denies knowledge of snoring. GASTROINTESTINAL: Denies any type of dysphagia to either liquids or solids. Denies nausea, vomiting, pyrosis, early satiety, abdominal pain, diarrhea, constipation, or changes in stool consistency or caliber. Denies coffee-ground emesis, hematemesis, hematochezia, or melanotic stools. GENITOURINARY: Denies frequency, urgency, nocturia, hematuria or incontinence (Storage/Irritative symptoms.) Low urinary stream, straining to void, urinary intermittency or hesitancy, splitting of the voiding stream, terminal dribbling. ENDOCRINOLOGIC: Denies polyuria, polydipsia, polyphagia or heat/cold intolerances. PHYSICAL EXAM GENERAL APPEARANCE: The patient is awake, alert, and oriented, in no acute cardiopulmonary distress. NEUROLOGICAL: Cranial nerves II-XII grossly intact. Motor is 5/5 in bilateral upper and lower extremities proximal to distal. No sensory deficits. HEENT: Face is symmetric. Pupils are equal and reactive. Extraocular movements are intact. NECK: Supple. No JVD. No thyromegaly. No submental, submandibular, pre- /postauricular, occipital or supraclavicular lymphadenopathy. CHEST: Normal chest expansion. No Telemetry. LUNGS: Absence of any rales, rhonchi or any wheezing. CARDIOVASCULAR: Regular. S1 and S2 normal. No appreciable rubs, murmurs or gallops. ABDOMEN: Soft, nontender, and nondistended. There is no rebound, voluntary guarding, or rigidity. : Deferred. No Swenson. EXTREMITIES: Non-edematous and not cyanotic. Left foot: Stronger posterior pedis as compared to anterior pedis. Right foot: Stronger anterior pedis compared to posterior pedis SKIN: No skin breakdown. Vital Signs (last 8hr) Date Time Temp Pulse Resp B/P (MAP) Pulse Ox O2 Delivery O2 Flow Rate FiO2 01/11/25 15:56 98.1 67 18 106/57 96 Room Air 01/11/25 12:08 98.6 62 18 107/60 99 Room Air LABS: Laboratory: Test 01/11/25 11:36 01/11/25 05:14 Range/Units Activated Partial Thromboplast Time 61.6 H 26.3-35.5 SEC White Blood Count 7.1 4.8-10.8 K/uL Red Blood Count 3.96 L 4.50-6.20 MIL/uL Hemoglobin 12.6 L 14.0-18.0 g/dL Hematocrit 36.6 L 42-54 % Mean Corpuscular Volume 92.4 79-99 fL Mean Corpuscular Hemoglobin 31.8 27.0-33.0 pg Mean Corpuscular Hemoglobin Concent 34.4 32.0-36.0 g/dL Red Cell Distribution Width 12.3 11.0-15.5 % Platelet Count 236 130-400 K/uL Mean Platelet Volume 9.6 7.5-10.5 fL Immature Granulocyte % (Auto) 0.1 0-1 % Neutrophils (%) (Auto) 47.5 40.0-77.0 % Lymphocytes (%) (Auto) 42.6 21.0-51.0 % Monocytes (%) (Auto) 6.9 3.0-13.0 % Eosinophils (%) (Auto) 2.1 0.0-8.0 % Basophils (%) (Auto) 0.8 0.0-5.0 % Neutrophils # (Auto) 3.4 1.8-7.7 K/uL Lymphocytes # (Auto) 3.0 1.0-4.8 K/uL Monocytes # (Auto) 0.5 0.1-1.0 K/uL Eosinophils # (Auto) 0.15 0.00-0.70 K/uL Basophils # (Auto) 0.06 0.00-0.20 K/uL Absolute Immature Granulocyte (auto 0.01 0-1 K/uL Nucleated Red Blood Cells 0.0 0.0-0.19 % Sodium Level 140 136-145 mmol/L Potassium Level 3.6 3.5-5.1 mmol/L Chloride Level 104 101-111 mmol/L Carbon Dioxide Level 27 21-32 mmol/L Blood Urea Nitrogen 18 7-18 mg/dL Creatinine 1.1 0.5-1.3 mg/dL Glomerular Filtration Rate Calc 78 >90 mL/min Random Glucose 122 H 70-105 mg/dL Total Calcium 8.8 8.5-10.1 mg/dL Total Bilirubin 0.3 0.2-1.0 mg/dL Aspartate Amino Transf (AST/SGOT) 18 10-37 U/L Alanine Aminotransferase (ALT/SGPT) 27 12-78 U/L Alkaline Phosphatase 76 50-136 U/L Total Protein 6.6 6.0-8.3 g/dL Albumin 3.5 3.5-5.0 g/dL Current Medications Medications (Trade) Dose Ordered Sig/Zac Route PRN Reason Start Time Stop Time Status Last Admin Dose Admin Acetaminophen (TYLenol 325MG TAB) 650 mg Q6H PRN PO MILD PAIN (1-3) 01/09/25 19:30 02/08/25 19:29 01/09/25 20:53 650 MG Albuterol (DUOneb) 1 udvial Q6H PRN IH SHORTNESS OF BREATH 01/09/25 19:30 02/08/25 19:29 Amlodipine Besylate (NorvASC 5MG TAB) 5 mg DAILY PO 01/10/25 17:00 02/09/25 16:59 01/11/25 10:02 5 MG Amlodipine Besylate (NorvASC 5MG TAB) 10 mg DAILY PO 01/10/25 09:00 01/10/25 05:49 DC Atorvastatin Calcium (LIPItor 40MG) 40 mg HS PO 01/10/25 21:00 02/09/25 20:59 01/10/25 21:18 40 MG Carvedilol (Coreg 3.125MG) 3.125 mg BID PO 01/10/25 09:00 02/09/25 08:59 01/11/25 10:02 3.125 MG Famotidine (Pepcid 20mg Vial) 20 mg BID IV 01/09/25 21:00 02/08/25 20:59 01/11/25 10:02 20 MG Gabapentin (NEURontin 100 mg CAP) 200 mg BID PO 01/10/25 09:00 02/09/25 08:59 01/11/25 10:03 200 MG Heparin Sodium (Porcine) (HEParin 5,000 UNIT VIAL) *calculation based on ACTUAL B... AD PRN IV HEPARIN PROTOCOL 01/10/25 23:30 02/09/25 23:29 01/10/25 23:06 3,000 UNIT Heparin Sodium (Porcine) (HEParin 5,000 UNIT VIAL) 2,700 unit ONCE IV 01/09/25 20:30 01/09/25 23:59 DC 01/09/25 20:56 2,700 UNIT Heparin Sodium/ Dextrose 250 ml @ 0 mls/hr Q6H IV 01/09/25 20:00 02/08/25 19:59 01/11/25 07:36 11.55 MLS/HR Morphine Sulfate (morPHINE 2MG SYG) 2 mg Q6H PRN IVP SEVERE PAIN (7-10) 01/09/25 19:30 01/16/25 19:29 Multivitamins Therapeutic (Multivitamin Tablet) 1 tab DAILY PO 01/10/25 09:00 02/09/25 08:59 01/11/25 10:03 1 TAB Ondansetron HCl (zoFRAN 4MG INJ) 4 mg Q6H PRN IVP NAUSEA/VOMITING 01/09/25 19:30 02/08/25 19:29 Sodium Chloride 1,000 ml @ 50 mls/hr Q20H IV 01/09/25 19:30 02/08/25 19:29 01/11/25 11:30 50 MLS/HR DIAGNOSTICS / RADIOLOGY: [place] [address] [address] IMAGING REPORT Signed PATIENT: DEMARCUS CARLIN MR#: [id number] : 1965 SEX: M AGE: 59 LOCATION: 2DH ORDER 08 STATUS: ADM IN REPORT#: [id number] SERVICE 05 REASON: EXAM FOR OCCLUDED POPLITEAL ARTERY ORDERING PHYSICIAN: MAULIK BAL MD PROCEDURE: CTA ABDAOR - CT ANGIO ABD AORTA W RUNOFF EXAM: CTA Abdomen and Pelvis With Runoff to the Lower Extremities with Intravenous Contrast. CLINICAL HISTORY: Evaluation for occluded popliteal artery. TECHNIQUE: Axial CTA images of the abdomen, pelvis, and lower extremities with intravenous contrast in the arterial phase, with coronal and sagittal reformatted images generated and reviewed. 3D reformatted images were generated on an independent workstation and also reviewed. CONTRAST: Omnipaque 350. COMPARISON: None provided FINDINGS: VASCULATURE Aorta and Branches The abdominal aorta demonstrates eccentric atheromatous calcified plaques, causing approximately 20???30% luminal narrowing. No evidence of abdominal aortic aneurysm or dissection. The celiac trunk is patent without significant stenosis or occlusion. Superior mesenteric artery is patent without significant stenosis or occlusion. The inferior mesenteric artery is patent without significant stenosis or occlusion. The right renal artery shows eccentric atheromatous calcified plaque at the origin, causing approximately 20???30% luminal narrowing. The left renal artery is patent without significant stenosis. Right Lower Extremity Arterial System The right common iliac artery shows eccentric atheromatous calcific plaques causing approximately 20???30% luminal narrowing. The right external iliac artery shows eccentric atheromatous calcific plaques causing approximately 20???30% luminal narrowing. The right internal iliac artery shows eccentric atheromatous calcific plaques causing approximately 20???30% luminal narrowing. The right common femoral artery shows eccentric atheromatous calcified plaques causing approximately 20???30% luminal narrowing. The right profunda femoris artery shows eccentric atheromatous calcific plaques causing approximately 30???40% luminal narrowing. The right superficial femoral artery shows eccentric atheromatous calcific plaques causing approximately 30???40% luminal narrowing. The right popliteal artery shows eccentric atheromatous calcified plaques causing approximately 50???60% luminal narrowing. The right tibioperoneal trunk shows eccentric atheromatous calcific plaques causing approximately 50???60% luminal narrowing. There is non-opacification of the distal right posterior tibial artery with significantly attenuated luminal caliber, consistent with thrombosis. Left Lower Extremity Arterial System Left common iliac artery shows eccentric atheromatous calcific plaques, causing approximately 40???50% luminal narrowing. The left external iliac artery shows eccentric atheromatous calcific plaques causing approximately 20???30% luminal narrowing. Left internal iliac artery shows eccentric atheromatous calcific plaques causing approximately 20???30% luminal narrowing. The left common femoral artery shows eccentric atheromatous calcified plaques causing approximately 20???30% luminal narrowing. Left profunda femoris artery shows eccentric atheromatous calcific plaques causing approximately 30???40% luminal narrowing. Left superficial femoral artery shows eccentric atheromatous calcific plaques causing approximately 40???50% luminal narrowing. There is a short segment of near-complete luminal thrombosis of the left popliteal artery with recanalized flow in the distal segment. The remainder of the left popliteal artery shows eccentric atheromatous calcific plaques causing approximately 60???70% luminal narrowing. Left tibioperoneal trunk shows eccentric atheromatous calcific plaques causing approximately 60???70% luminal narrowing. Left anterior tibial artery origin shows eccentric atheromatous calcific plaques causing approximately 60???70% luminal narrowing. LOWER THORAX No basilar airspace consolidation. ABDOMEN The liver is unremarkable without a focal mass. No calcified gallstones or biliary ductal dilatation. The pancreas is normal. The spleen is unremarkable. No adrenal mass. The kidneys are enhanced symmetrically without hydronephrosis or a solid mass. There is colonic diverticulosis without diverticulitis. No bowel wall thickening or obstruction. The appendix appears normal. PELVIS The urinary bladder is unremarkable. Reproductive organs are unremarkable as visualized. No free fluid or free air is identified. No lymphadenopathy is seen. Multilevel moderate degenerative changes are seen in the spine without acute osseous abnormality. LOWER EXTREMITIES (Soft Tissues and Bones) Soft tissues are unremarkable. No lymphadenopathy is identified. No acute osseous abnormality. IMPRESSION: Near-complete occlusive thrombus in the left popliteal artery with distal recanalization. Thrombosis of the distal right posterior tibial artery. Multilevel severe atherosclerotic disease involving the bilateral iliac, femoral, popliteal, and tibial arterial systems, with the most significant stenoses involving the left popliteal artery (60???70%), left tibioperoneal trunk (60???70%), and left anterior tibial artery origin (60???70%). Mild to moderate luminal narrowing (20???50%) in the abdominal aorta, right renal artery origin, and remaining segments of the bilateral iliac and femoral arteries. Colonic diverticulosis without evidence of diverticulitis. Multilevel degenerative changes in the spine. /[place] DICTATED BY: HEIDI WEISS Jr., MD DATE: 01/10/252155 ELECTRONICALLY SIGNED BY: HEIDI WEISS Jr., MD DATE: 01/10/252155 ASSESSMENT: Peripheral arterial disease POA Peripheral vascular disease POA S/P peripheral angogram with WATER RESOURCE PROJECT MANAGER POA Left proximal popliteal artery occlusion POA Worsening intermittent claudication POA Essential Hypertension POA Hyperlipidemia POA Coronary artery disease POA Hyperglycemia POA Nicotine dependence POA Alcoholism POA Soft tissue swelling PLAN: Peripheral arterial disease, Peripheral vascular disease, S/P peripheral angiogram with WATER RESOURCE PROJECT MANAGER , Left proximal popliteal artery occlusion, Worsening intermittent claudication * Cardiovascular surgeon and Cardiology consulted for evaluation for femoral popliteal bypass surgery * On carvedilol 3.125 b.i.d. and gabapentin 200 mg b.i.d., amlodipine mg * As per cardiology, keep DAPT on hold and continue heparin infusion * Obtain coronary angiogram, echocardiogram, and cardiology notes from [facility] * Cardiovascular ordered CT angio abdominal aorta * Got CT angio results ordered by cardiovascular surgeon, and it showed the following thinks it shows the near complete occlusive thrombus in the left popliteal artery with distal recanalization.. * thrombosis of the distal right posterior tibial artery, [id number] luminal narrowing in the abdominal aorta, right renal artery origin. * multilevel degenerative changes in the spine. * And he advised to that the patient will need a left femoral to posterior tibi al bypass to bypass is occluded popliteal artery. * And he is going to explained the benefits and the risks including the loss of limb, loss of light, bleeding, infection, stroke and if he agrees will proceed with surgery in the upcoming days. Hyperlipidemia * Lipid profile showed triglycerides 0 8, total cholesterol 195, LDL 93, and HDL 28. * Patient is continued on atorvastatin 40 mg home medications * Soft tissue swelling * Boil in the right shoulder scapula * Orders soft tissue ultrasound * Depending up on the results, we can approach surgeon for the possible drainage I have seen and evaluated the patient alongside with the resident/nurse practitioner/physician bakery assistant. I agree with the assessment. ANGEL ESTEBAN MD Jan 11, 2025 19:29 LEEANNE BROWNE IV, MD Jan 25, 2025 08:56
[2025-01-12] VITALS (8 sets, daily range): BP systolic 106–131; BP diastolic 53–69; PULSE 59–70; RESP 16–18; TEMP 97.9–98.5; O2SAT 96
[2025-01-12 03:38] LABS: IMMATURE GRANULOCYTE ABSOLUTE 0.01 K/uL (0-1); NUCLEATED RED BLOOD CELLS 0.0 % (0.0-0.19); PLATELET COUNT (AUTO) 241 K/uL (130-400); RED BLOOD CELL COUNT(AUTO) 3.91 MIL/uL (4.50-6.20); RED CELL DISTRIBUTION WIDTH 12.4 % (11.0-15.5); WHITE BLOOD COUNT (AUTO) 7.1 K/uL (4.8-10.8)
[2025-01-12 04:08] LABS: ASPARTATE AMINOTRANSFERASE 16.0 U/L (10-37); CREATININE 0.9 mg/dL (0.5-1.3); GLOMERULAR FILTR. RATE CALC 100.0 mL/min (>90); GLUCOSE,RANDOM 108.0 mg/dL (70-105); SODIUM SERUM 141.0 mmol/L (136-145); TOTAL PROTEIN, SERUM 6.7 g/dL (6.0-8.3); UREA NITROGEN, BLOOD 16.0 mg/dL (7-18)
--- NOTE | 2025-01-12 08:54 | HMCIMG ---
EXAMINATION: SOFT TISSUE ULTRASOUND OF THE RIGHT SCAPULAR REGION. CLINICAL HISTORY: Palpable swelling. COMPARISON: None. TECHNIQUE: Transverse and longitudinal images were obtained in the right scapular region. FINDINGS: There is a complex collection in the subcutaneous plane of the right scapular region that measures 2.4 x 0.8 x 2.2 cm in craniocaudal, AP, and transverse dimensions respectively. There is increased peripheral vascularity. IMPRESSION: Possible subcutaneous abscess in the right scapular region. Contrast enhanced CT or MR may be considered. /[place]
--- NOTE | 2025-01-12 09:19 | PN ---
[facility] Cardiology Progress Note CARDIOLOGY PROGRESS NOTE JANUARY 12, 2025 Primary threading machine feeder automatic Dr. Nicole Preciado Problems: 1. Peripheral arterial disease status post mechanical thrombectomy balloon angioplasty of the left popliteal artery and successful angioplasty of the left posterior tibial artery December 30, [address] Nicole Preciado in [place] with documented monophasic waveforms in the mid and distal superficial femoral artery to the dorsalis pedis artery with no appreciable flow in the popliteal artery transferred for evaluation for femoral popliteal bypass 2. Non ST-elevation myocardial infarction two weeks prior to admission with reported nonobstructive coronary artery disease and left heart catheterization at [facility] 3. Hypertension 4. Dyslipidemia 5. Former smoker quit five months ago This patient had recent hospitalization at [facility] for a non ST- elevation IA about three weeks ago. He underwent left heart catheterization was Dr. Christiansen and was told of nonobstructive coronary artery disease. He was subsequently admitted back to [facility] with severe claudication and underwent percutaneous intervention with . He is found to have occlusion of the posterior tibial artery a few days postprocedure and was transferred here for evaluation for fem-pop bypass. Blood pressure running 110- 130 systolic heart rate is in the 60s. White count 7.1 hemoglobin 12.5 platelet count [id number]. Potassium 3.7 BUN 16 creatinine 0.9. The patient continues on carvedilol heparin protocol atorvastatin amlodipine famotidine. Currently he is resting comfortably. He denies any chest pain or shortness of breath. He has no resting pain in the leg. He has been evaluated by surgery and fem-pop bypass surgery is planned for this week. We have requested a copy of the left heart catheterization report from [facility] and so far have not received a copy. We will send a 2nd request. CTA aortic runoff study performed here shows near-complete occlusion of the left popliteal artery with distal recanalization. There is thrombus in the right posterior tibial artery. The report describes severe bilateral iliac femoral popliteal and tibial disease most significant in the left popliteal artery. I will recommend adding aspirin to the patient's heparin protocol. 2D echo will be ordered to assess systolic function post re cent non ST-elevation IA. Again we are sending a 2nd request for the catheter report. KJ WRIGHT MD Jan 12, 2025 09:19
--- NOTE | 2025-01-12 10:36 | NUR ---
CT EXAM DELAY: PER NURSE, PENDING CONSENT FOR CT UPPER EXT W/WO CONTRAST.
[2025-01-12] MEDS ORDERED: IOHEXOL-350 75 ML VIAL IV ONE (11:33)
--- NOTE | 2025-01-12 12:00 | PN ---
[facility] PROGRESS NOTE Date of Service: Jan 12, 2025 Time of Service: 11:44 SUBJECTIVE: This is a 59-year-old Gabonese-speaking male with past medical history of hypertension and hyperlipidemia was transferred from [facility] possible fem-pop evaluation.As per patient he started having severe left foot pain 5 days ago and went to his PCP where he was advised to go to the ED for a possible DVT.While in [facility] a venous doppler was performed which revealed negative for DVT and an arterial doppler was also done and result showed total occlusion of the arterial ultrasound to the left proximal popliteal colloidal circulation .Reportedly patient developed intermittent claudication of left foot and a cardiology was consulted .Patient underwent an ultrasound guided vascular access of the right common femoral artery angiography in common femoral artery with run off to right foot ,abdominal aortogram with bilateral iliofemoral runoff ,selective left lower extremity angioraphy with femoral artery runoff to the left foot ,intravascular ultrasound to left SFA /popliteal artery mechanical thrombectomy for left popliteal thrombus, percutaneous transluminal angiography to the left popliteal artery with balloon bringing down the stenosis to 10% and DIALYSIS SOCIAL WORKER to the left posterior tibial artery with balloon bringing down the stenosis from 70% to less than 10% as per documentation report.Patient was started on heparin and nitroglycerin drip per cardio recommendation to improve the flow.As per documented report ,popliteal artery collapsed again but patient still has a flow in the lower extremity but slow due to his severe microvascular disease in the foot ,hence patient need to be transferred for a thrombectomy versus bypass surgery evaluation. was then consulted prior to the transfer as per report and patient was accepted by Dr.Mamachen Call. Patient reports he smokes 1 pack of cigarette every 2 days x 15 years and drinks 3 beers every weekend. Seen and examined patient in room 210 awake,alert and coherent,denies chest pain ,palpitation,cough,fever and shortness of breath. Latest vital signs temperature 98.1, heart rate 70, blood pressure 149/41 saturation 97% on room air. Patient remain in ICU on nitro and heparin drip. 01/10 The patient is seen and examined in room 210. As the patient is only Gabonese speaking, therefore a nurse was used as a cheese specialist. The patient said that he was feeling. Today. He is continued on the IV heparin therefore the patient is in ICU. Cardiovascular and cardiology consulted. Anterior and posterior pedis pulses were checked by Doppler. Left foot had stronger posterior pedis as compared to anterior pedis pulse and right foot had stronger anterior pedis compared to posterior pedis. As per cardiology the patient had NSTEMI approximately 2 wk ago in 12/2024, and coronary angiogram approximately 2 weeks ago demonstrating nonobstructive CAD, and claudication was sent to [facility] by his PCP for further evaluation of left lower extremity discomfort and discoloration. DVT was reportedly ruled out for the left lower extremity. Left lower extremity arterial ultrasound was reported to have a total occlusion of the left proximal popliteal artery with collateral circulation and distal popliteal reconstitution with monophasic waveforms distally. He underwent a peripheral angiogram of the left lower extremity on 12/30/[address] Nicole Preciado, s/p successful mechanical thrombectomy followed by balloon angioplasty of the left popliteal artery and successful DIALYSIS SOCIAL WORKER to the left posterior tibial artery. Repeat left lower extremity arterial Doppler on 01/08/2025 revealed monophasic waveforms from the mid and distal superficial femoral artery to the dorsalis pedis artery, no appreciable flow within the popliteal artery consistent with complete occlusion. The patient was transferred to [facility] for evaluation by CV surgery for a fem-pop. Cardiology recommend to keep DAPT on hold and continue heparin infusion. They also ordered to obtain coronary angiogram, echocardiogram, and cardiology notes from MRMS. Cardiovascular surgery ordered CT angio abdominal aorta. 01/11/2025: Patient is seen in the room 224. CT angio showed near-complete occlusive thrombus in the left popliteal artery with distal recanalization, thrombosis of the distal right posterior tibial artery, multilevel severe atherosclerotic disease involving the bilateral iliac, femoral, popliteal, and tibial arterial systems, with the most significant stenoses involving the left popliteal artery, left tibioperoneal trunk , and left anterior tibial artery origin. Cardiovascular surgeon advised that the patient will need a left femoral to posterior tibial bypass to bypass is occluded popliteal artery. Examined soft tissue boil on the right shoulder scapula. 01/12 The patient was seen and examined in room 224. As the patient is Gabonese speaking only, a nurse was used as a cheese specialist converse with the patient. Soft tissue ultrasound showed possible subcutaneous abscess in the right scapular region therefore CT scan with contrast of upper extremity was ordered. Cardiology saw the patient today and recommended to start the patient on aspirin 81 mg, echo and placed another order for left heart catheterization report from admission. As per cardiovascular surgeon the patient is planned for a left femoral artery to posterior tibial artery bypass. Cardiology ordered echo that showed LVEF of 60-65% and added aspirin 81 mg. REVIEW OF SYSTEMS CONSTITUTIONAL: Denies fevers, chills, or night sweats. No unintentional weight loss reported. NEUROLOGICAL: Denies headache, amaurosis fugax, motor weakness, sensory deficit, vertigo/spinning sensation, gait abnormalities, or tremors. ENT: No hearing loss, otalgia, otorrhea, rhinitis, rhinorrhea, hoarseness, or sore throat. CARDIOVASCULAR: Denies any exertional angina, dyspnea on exertion, orthopnea, paroxysmal nocturnal dyspnea, palpitations, life-threatening arrhythmias, claudication. PULMONARY: Denies any shortness of breath, cough, phlegm/sputum, hemoptysis, pleuritic chest pain. SLEEP: Denies morning headaches, daytime somnolence or napping. Denies difficulty falling asleep, staying asleep, waking from sleep. Denies knowledge of snoring. GASTROINTESTINAL: Denies any type of dysphagia to either liquids or solids. Denies nausea, vomiting, pyrosis, early satiety, abdominal pain, diarrhea, constipation, or changes in stool consistency or caliber. Denies coffee-ground emesis, hematemesis, hematochezia, or melanotic stools. GENITOURINARY: Denies frequency, urgency, nocturia, hematuria or incontinence (Storage/Irritative symptoms.) Low urinary stream, straining to void, urinary intermittency or hesitancy, splitting of the voiding stream, terminal dribbling. ENDOCRINOLOGIC: Denies polyuria, polydipsia, polyphagia or heat/cold intolerances. PHYSICAL EXAM GENERAL APPEARANCE: The patient is awake, alert, and oriented, in no acute cardiopulmonary distress. Boil on the right upper lateral back NEUROLOGICAL: Cranial nerves II-XII grossly intact. Motor is 5/5 in bilateral upper and lower extremities proximal to distal. No sensory deficits. HEENT: Face is symmetric. Pupils are equal and reactive. Extraocular movements are intact. NECK: Supple. No JVD. No thyromegaly. No submental, submandibular, pre- /postauricular, occipital or supraclavicular lymphadenopathy. CHEST: Normal chest expansion. No Telemetry. LUNGS: Absence of any rales, rhonchi or any wheezing. CARDIOVASCULAR: Regular. S1 and S2 normal. No appreciable rubs, murmurs or gallops. ABDOMEN: Soft, nontender, and nondistended. There is no rebound, voluntary guarding, or rigidity. : Deferred. No Swenson. EXTREMITIES: Non-edematous and not cyanotic. Left foot: Stronger posterior pedis as compared to anterior pedis. Right foot: Stronger anterior pedis wilton red to posterior pedis SKIN: No skin breakdown. Vital Signs (last 8hr) Date Time Temp Pulse Resp B/P (MAP) Pulse Ox O2 Delivery O2 Flow Rate FiO2 01/12/25 10:37 130/63 01/12/25 07:58 98.1 60 18 131/68 98 Room Air LABS: Laboratory: Test 01/12/25 09:44 01/12/25 03:21 Range/Units Activated Partial Thromboplast Time 48.1 #H 26.3-35.5 SEC White Blood Count 7.1 4.8-10.8 K/uL Red Blood Count 3.91 L 4.50-6.20 MIL/uL Hemoglobin 12.5 L 14.0-18.0 g/dL Hematocrit 36.0 L 42-54 % Mean Corpuscular Volume 92.1 79-99 fL Mean Corpuscular Hemoglobin 32.0 27.0-33.0 pg Mean Corpuscular Hemoglobin Concent 34.7 32.0-36.0 g/dL Red Cell Distribution Width 12.4 11.0-15.5 % Platelet Count 241 130-400 K/uL Mean Platelet Volume 9.8 7.5-10.5 fL Immature Granulocyte % (Auto) 0.1 0-1 % Neutrophils (%) (Auto) 46.3 40.0-77.0 % Lymphocytes (%) (Auto) 43.0 21.0-51.0 % Monocytes (%) (Auto) 7.1 3.0-13.0 % Eosinophils (%) (Auto) 2.7 0.0-8.0 % Basophils (%) (Auto) 0.8 0.0-5.0 % Neutrophils # (Auto) 3.3 1.8-7.7 K/uL Lymphocytes # (Auto) 3.1 1.0-4.8 K/uL Monocytes # (Auto) 0.5 0.1-1.0 K/uL Eosinophils # (Auto) 0.19 0.00-0.70 K/uL Basophils # (Auto) 0.06 0.00-0.20 K/uL Absolute Immature Granulocyte (auto 0.01 0-1 K/uL Nucleated Red Blood Cells 0.0 0.0-0.19 % Sodium Level 141 136-145 mmol/L Potassium Level 3.7 3.5-5.1 mmol/L Chloride Level 103 101-111 mmol/L Carbon Dioxide Level 28 21-32 mmol/L Blood Urea Nitrogen 16 7-18 mg/dL Creatinine 0.9 0.5-1.3 mg/dL Glomerular Filtration Rate Calc 100 >90 mL/min Random Glucose 108 H 70-105 mg/dL Total Calcium 9.0 8.5-10.1 mg/dL Total Bilirubin 0.4 # 0.2-1.0 mg/dL Aspartate Amino Transf (AST/SGOT) 16 10-37 U/L Alanine Aminotransferase (ALT/SGPT) 39 # 12-78 U/L Alkaline Phosphatase 72 50-136 U/L Total Protein 6.7 6.0-8.3 g/dL Albumin 3.5 3.5-5.0 g/dL Current Medications Medications (Trade) Dose Ordered Sig/Zac Route PRN Reason Start Time Stop Time Status Last Admin Dose Admin Acetaminophen (TYLenol 325MG TAB) 650 mg Q6H PRN PO MILD PAIN (1-3) 01/09/25 19:30 02/08/25 19:29 01/09/25 20:53 650 MG Albuterol (DUOneb) 1 udvial Q6H PRN IH SHORTNESS OF BREATH 01/09/25 19:30 02/08/25 19:29 Amlodipine Besylate (NorvASC 5MG TAB) 5 mg DAILY PO 01/10/25 17:00 02/09/25 16:59 01/12/25 10:38 5 MG Amlodipine Besylate (NorvASC 5MG TAB) 10 mg DAILY PO 01/10/25 09:00 01/10/25 05:49 DC Aspirin (Aspirin 81mg Chew Tab) 81 mg DAILY PO 01/13/25 09:00 02/12/25 08:59 Atorvastatin Calcium (LIPItor 40MG) 40 mg HS PO 01/10/25 21:00 02/09/25 20:59 01/11/25 21:35 40 MG Carvedilol (Coreg 3.125MG) 3.125 mg BID PO 01/10/25 09:00 02/09/25 08:59 01/12/25 10:37 3.125 MG Famotidine (Pepcid 20mg Vial) 20 mg BID IV 01/09/25 21:00 02/08/25 20:59 01/12/25 10:37 20 MG Gabapentin (NEURontin 100 mg CAP) 200 mg BID PO 01/10/25 09:00 02/09/25 08:59 01/12/25 10:37 200 MG Heparin Sodium (Porcine) (HEParin 5,000 UNIT VIAL) *calculation based on ACTUAL B... AD PRN IV HEPARIN PROTOCOL 01/10/25 23:30 02/09/25 23:29 01/10/25 23:06 3,000 UNIT Heparin Sodium (Porcine) (HEParin 5,000 UNIT VIAL) 2,700 unit ONCE IV 01/09/25 20:30 01/09/25 23:59 DC 01/09/25 20:56 2,700 UNIT Heparin Sodium/ Dextrose 250 ml @ 0 mls/hr Q6H IV 01/09/25 20:00 02/08/25 19:59 01/11/25 21:55 11.55 MLS/HR Morphine Sulfate (morPHINE 2MG SYG) 2 mg Q6H PRN IVP SEVERE PAIN (7-10) 01/09/25 19:30 01/16/25 19:29 Multivitamins Therapeutic (Multivitamin Tablet) 1 tab DAILY PO 01/10/25 09:00 02/09/25 08:59 01/12/25 10:37 1 TAB Ondansetron HCl (zoFRAN 4MG INJ) 4 mg Q6H PRN IVP NAUSEA/VOMITING 01/09/25 19:30 02/08/25 19:29 Sodium Chloride 1,000 ml @ 50 mls/hr Q20H IV 01/09/25 19:30 02/08/25 19:29 01/11/25 11:30 50 MLS/HR DIAGNOSTICS / RADIOLOGY: PATIENT: DEMARCUS CARLIN MR#: [id number] : 1965 SEX: M AGE: 59 LOCATION: 2DH ORDER 45 STATUS: ADM IN REPORT#: [id number] SERVICE 43 REASON: boil on right shoulder scapula ORDERING PHYSICIAN: ANGEL ESTEBAN MD PROCEDURE: SOFT UBACK - US SOFT TISSUE UPPER BACK EXAMINATION: SOFT TISSUE ULTRASOUND OF THE RIGHT SCAPULAR REGION. CLINICAL HISTORY: Palpable swelling. COMPARISON: None. TECHNIQUE: Transverse and longitudinal images were obtained in the right scapular region. FINDINGS: There is a complex collection in the subcutaneous plane of the right scapular region that measures 2.4 x 0.8 x 2.2 cm in craniocaudal, AP, and transverse dimensions respectively. There is increased peripheral vascularity. IMPRESSION: Possible subcutaneous abscess in the right scapular region. Contrast enhanced CT or MR may be considered. /[place] DICTATED BY: BROCK DESAI MD DATE: 01/12/25953 ELECTRONICALLY SIGNED BY: BROCK DESAI MD DATE: 01/12/25953 ASSESSMENT: Peripheral arterial disease POA Peripheral vascular disease POA S/P peripheral angogram with DIALYSIS SOCIAL WORKER POA Left proximal popliteal artery occlusion POA Worsening intermittent claudication POA Essential Hypertension POA Hyperlipidemia POA Coronary artery disease POA Hyperglycemia POA Nicotine dependence POA Alcoholism POA Soft tissue swelling PLAN: Peripheral arterial disease, Peripheral vascular disease, S/P peripheral angiogram with DIALYSIS SOCIAL WORKER , Left proximal popliteal artery occlusion, Worsening i ntermittent claudication * Cardiovascular surgeon and Cardiology consulted for evaluation for femoral popliteal bypass surgery * On carvedilol 3.125 b.i.d. and gabapentin 200 mg b.i.d., amlodipine 5 mg OD * As per cardiology, keep DAPT on hold and continue heparin infusion * Cardiology added aspirin 81 mg today * Echocardiogram shows LVEF of 60-65% * Obtain coronary angiogram, echocardiogram, and cardiology notes from [facility] * CT angio showed near-complete occlusive thrombus in the left popliteal artery with distal recanalization, thrombosis of the distal right posterior tibial artery, multilevel severe atherosclerotic disease involving the bilateral iliac, femoral, popliteal, and tibial arterial systems, with the most significant stenoses involving the left popliteal artery, left tibioperoneal trunk , and left anterior tibial artery origin. * Cardiovascular surgeon advised that the patient will need a left femoral to posterior tibial bypass to bypass the occluded popliteal artery. Hyperlipidemia * Lipid profile showed triglycerides 0 8, total cholesterol 195, LDL 93, and HDL 28. * Patient is continued on atorvastatin 40 mg home medications * Soft tissue swelling * Boil in the right shoulder scapula * Soft tissue ultrasound of right shoulder scapula showed possible subcutaneous abscess in the right scapular region * CT scan with contrast of upper extremity ordered ATTESTATION BY PHYSICIAN I have seen and examined the patient. I reviewed the documentation, medical decision making, and treatment plan as noted by the resident physician above. I agree with the findings and plan of care. Oren Olmedo IV, MD, SYED M MD Jan 12, 2025 12:00
--- NOTE | 2025-01-12 13:27 | HMCSR ---
APPROVED REPORT EXAM: Two-dimensional and M-mode echocardiogram with Doppler and color Doppler. INDICATION ICD: recent NSTEMI 2D Dimensions RVDd3.1 cmLVEF(%)57.5 (>50%)LVED Vol(simp.)114.0 mL IVSd0.8 (0.7-1.1cm)FS(%)30 %LVES Vol(simp.)43.0 mL LVDd4.8 (3.8-5.6cm)LA (2D)2.7 (1.6-4.0cm)LVEF(%, simp.)63 % PWd0.9 (0.7-1.1cm)Ao Root(2D)2.1 (2.0-3.7cm)LA ESV INDEX (BP)23.74 mL/m2 LVDs3.4 (2.5-4.0cm)LVOT diam2.2 (1.8-2.4cm) IVC diam1.6 cm Deformation Strain Apical 4-19.5 % Apical 2-21.5 % Apical 3-15.8 % Global Strain-18.9 % Aortic Valve AoV Vmax1.4 m/Mena Peak GR7.8 mmHgLVOT Vmax1.1 m/s AoV VTI0.3 mAo Mean GR3.8 mmHgLVOT VTI0.21 m DELIA (VMAX)2.97 cm2AVA (VTI) 2.4 cm2 Mitral Valve MV E Vmax63.6 cm/sDECEL Azow971 ms MV A Vmax70.0 cm/sP 1/2 T60 ms E/A ratio0.9MVA (PHT)3.7 cm2 TDI E/E' Medial7.4E/E' Lateral6.7 Medial E' Peak V8.65 cm/sLateral E' Peak V9.56 cm/s Pulmonary Valve PV Vmax1.2 m/sPV VTI0.26 mPV Mean GR2.9 mmHg PV Peak GR5.9 mmHg Tricuspid Valve TR Vmax2.1 m/sRVSP15.4 mmHg TR Peak GR19.7 mmHg Left Ventricle The left ventricle is normal size. There is normal left ventricular wall thickness. LVEF is 60-65%. T he left ventricular diastolic function is normal. Right Ventricle The right ventricle is normal size. The right ventricular systolic function is normal. Atria The left atrium size is normal. The right atrium size is normal. Aortic Valve The aortic valve is normal in structure. No aortic regurgitation is present. There is no aortic valvu lar stenosis. Mitral Valve The mitral valve is normal in structure. There is no mitral valve regurgitation noted. There is no mi tral valve stenosis. Tricuspid Valve The tricuspid valve is normal in structure. There is no tricuspid valve regurgitation noted. Pulmonic Valve The pulmonary valve is normal in structure. There is no pulmonic valvular regurgitation. Great Vessels The aortic root is normal in size. The IVC is normal in size and collapses >50% with inspiration. Pericardium There is no pericardial effusion. Conclusion LVEF is 60-65%.
[2025-01-12 17:13] LABS: INR 0.94 (0.85-1.15)
[2025-01-13] VITALS (8 sets, daily range): BP systolic 111–117; BP diastolic 57–70; PULSE 59–74; RESP 16–21; TEMP 97.8–98.7; O2SAT 99
--- NOTE | 2025-01-13 00:24 | HMCIMG ---
EXAM: CT UPPER EXTREMITY, RIGHT, WITH AND WITHOUT INTRAVENOUS CONTRAST Technique: Noncontrast and contrast-enhanced helical computed tomography of the right posterior scapular region with multiplanar reformations; iterative reconstruction applied. CTDIvol 17.60 mGy; DLP 470.10 mGy???cm. Contrast: Standard dose of intravenous contrast administered. Clinical Information: Possible subcutaneous abscess in the right scapular region. Findings: Soft tissues: Ill-defined subcutaneous fluid collection in the right posterior scapular region measuring approximately 3.0 ??? 1.7 ??? 2.4 cm (anteroposterior ??? transverse ??? craniocaudal). The collection demonstrates peripheral enhancement compatible with an organizing fluid collection/abscess. Surrounding subcutaneous fat stranding is present. Muscles: Adjacent shoulder girdle musculature is preserved without intramuscular collection. Bones/joints: Scapula, clavicle, and visualized humeral head show no cortical destruction or acute osseous abnormality. Neurovascular structures: No regional vascular complication is identified on this study. Chest wall/lung apices (limited): No focal abnormality in the imaged portions. Impression: * Comparison: Compared with ultrasound of the soft tissues of the upper back dated 01/11/2025 19:08 EDT, there remains a right posterior scapular subcutaneous fluid collection???sonographically complex and on computed tomography measuring approximately 3.0 ??? 1.7 ??? 2.4 cm???with peripheral enhancement consistent with a superficial abscess; surrounding cellulitic change is present. * No evidence of intramuscular extension or osseous involvement on computed tomography. * Correlate clinically for signs of infection; consider targeted incision and drainage or image-guided aspiration for culture and sensitivity, and antibiotic therapy per institutional protocol. /[place]
[2025-01-13 03:42] LABS: IMMATURE GRANULOCYTE ABSOLUTE 0.02 K/uL (0-1); NUCLEATED RED BLOOD CELLS 0.0 % (0.0-0.19); PLATELET COUNT (AUTO) 248 K/uL (130-400); RED BLOOD CELL COUNT(AUTO) 3.82 MIL/uL (4.50-6.20); RED CELL DISTRIBUTION WIDTH 12.3 % (11.0-15.5); WHITE BLOOD COUNT (AUTO) 6.8 K/uL (4.8-10.8)
[2025-01-13 04:04] LABS: ASPARTATE AMINOTRANSFERASE 21.0 U/L (10-37); CREATININE 0.9 mg/dL (0.5-1.3); GLOMERULAR FILTR. RATE CALC 100.0 mL/min (>90); GLUCOSE,RANDOM 137.0 mg/dL (70-105); SODIUM SERUM 140.0 mmol/L (136-145); TOTAL PROTEIN, SERUM 6.4 g/dL (6.0-8.3); UREA NITROGEN, BLOOD 20.0 mg/dL (7-18)
--- NOTE | 2025-01-13 08:11 | PN ---
[facility] CARDIOLOGY PROGRESS NOTE Date Patient Seen: Jan 13, 2025 Time of Visit: 08:09 Interval History: [ ] Physical Examination: GENERAL: [No acute distress.] HEAD: [Normal with no signs of head trauma.] EYES: [PERRLA, EOMI, conjunctiva and sclera normal.] ENT: [Hearing grossly intact, normal oropharynx.] NECK: [Supple without JVD. There is no tenderness, lymphadenopathy, or masses. No thyromegaly. Normal carotid upstrokes without bruits.] LUNGS: [Clear breath sounds bilaterally. There are right basilar rales one third of the way up the chest. No wheezes, or rhonchi.] HEART: [Normal rate and rhythm. Normal S1 and S2 without mumurs, gallop or rub.] VASC: [Peripheral pulses +2 bilaterally.] ABD: [Bowel sounds normal, soft, nontender, no masses, no organomegaly. No audible bruits.] : [Not examined] LYMPH: [No lymphadenopathy noted.] EXT: [ Non-edematous and not cyanotic. No clubbing. left foot pale in color ,pedal pulse per doppler .] NEURO: [Awake, alert, and oriented x3. No focal sensory or strength deficits noted.] Laboratory: [ ] Hematology Labs: Test 01/13/25 03:17 Range/Units White Blood Count 6.8 4.8-10.8 K/uL Red Blood Count 3.82 L 4.50-6.20 MIL/uL Hemoglobin 12.2 L 14.0-18.0 g/dL Hematocrit 35.9 L 42-54 % Mean Corpuscular Volume 94.0 79-99 fL Mean Corpuscular Hemoglobin 31.9 27.0-33.0 pg Mean Corpuscular Hemoglobin Concent 34.0 32.0-36.0 g/dL Red Cell Distribution Width 12.3 11.0-15.5 % Platelet Count 248 130-400 K/uL Mean Platelet Volume 9.9 7.5-10.5 fL Immature Granulocyte % (Auto) 0.3 0-1 % Neutrophils (%) (Auto) 44.5 40.0-77.0 % Lymphocytes (%) (Auto) 44.2 21.0-51.0 % Monocytes (%) (Auto) 7.1 3.0-13.0 % Eosinophils (%) (Auto) 3.0 0.0-8.0 % Basophils (%) (Auto) 0.9 0.0-5.0 % Neutrophils # (Auto) 3.0 1.8-7.7 K/uL Lymphocytes # (Auto) 3.0 1.0-4.8 K/uL Monocytes # (Auto) 0.5 0.1-1.0 K/uL Eosinophils # (Auto) 0.20 0.00-0.70 K/uL Basophils # (Auto) 0.06 0.00-0.20 K/uL Absolute Immature Granulocyte (auto 0.02 0-1 K/uL Nucleated Red Blood Cells 0.0 0.0-0.19 % Chemistry Labs: Test 01/13/25 03:17 Range/Units Sodium Level 140 136-145 mmol/L Potassium Level 3.5 3.5-5.1 mmol/L Chloride Level 104 101-111 mmol/L Carbon Dioxide Level 28 21-32 mmol/L Blood Urea Nitrogen 20 H 7-18 mg/dL Creatinine 0.9 0.5-1.3 mg/dL Glomerular Filtration Rate Calc 100 >90 mL/min Random Glucose 137 H 70-105 mg/dL Total Calcium 8.7 8.5-10.1 mg/dL Total Bilirubin 0.3 # 0.2-1.0 mg/dL Aspartate Amino Transf (AST/SGOT) 21 10-37 U/L Alanine Aminotransferase (ALT/SGPT) 28 # 12-78 U/L Alkaline Phosphatase 77 50-136 U/L Total Protein 6.4 6.0-8.3 g/dL Albumin 3.3 L 3.5-5.0 g/dL Coagulation Labs: Test 01/12/25 16:44 Range/Units Prothrombin Time 10.0 9.6-11.6 SEC Prothromb Time International Ratio 0.94 0.85-1.15 Activated Partial Thromboplast Time 56.1 H 26.3-35.5 SEC Diagnostics / Radiology: [Copy/Paste Echos/Imaging Report here] Impression and Plan: [ 1. Peripheral arterial disease status post mechanical thrombectomy balloon angioplasty of the left popliteal artery and successful angioplasty of the left posterior tibial artery December 30, [address] Nicole Preciado in [place] with documented monophasic waveforms in the mid and distal superficial femoral artery to the dorsalis pedis artery with no appreciable flow in the popliteal artery transferred for evaluation for femoral popliteal bypass 2. Non ST-elevation myocardial infarction two weeks prior to admission with reported nonobstructive coronary artery disease and left heart catheterization at [facility] 3. Hypertension 4. Dyslipidemia 5. Former smoker quit five months ago #PAD This patient had recent hospitalization at [facility] for a non ST- elevation ME about three weeks ago. He underwent left heart catheterization was Dr. Christiansen and was told of nonobstructive coronary artery disease. He was subsequently admitted back to [facility] with severe claudication and underwent percutaneous intervention with . He is found to have occlusion of the posterior tibial artery a few days postprocedure and was transferred here for evaluation for fem-pop bypass. Blood pressure running 110- 130 systolic heart rate is in the 60s. White count 7.1 hemoglobin 12.5 platelet count [id number]. Potassium 3.7 BUN 16 creatinine 0.9. The patient continues on carvedilol heparin protocol atorvastatin amlodipine famotidine. He has no resting pain in the leg. He has been evaluated by surgery and fem-pop bypass surgery is planned for this week. We have requested a copy of the left heart catheterization report from [facility] and so far have not received a copy. We will send a 2nd request. CTA aortic runoff study performed here shows near-complete occlusion of the left popliteal artery with distal recanalization. There is thrombus in the right posterior tibial artery. The report describes severe bilateral iliac femoral popliteal and tibial disease most significant in the left popliteal artery. aspirin and heparin protocol. 2D echo is normal AIDEN SQUIRES MD Jan 13, 2025 08:11
--- NOTE | 2025-01-13 08:33 | PN ---
[facility] PROGRESS NOTE Date of Service: Jan 13, 2025 Time of Service: 08:31 SUBJECTIVE: This is a 59-year-old Latvian-speaking male with past medical history of hypertension and hyperlipidemia was transferred from [facility] possible fem-pop evaluation.As per patient he started having severe left foot pain 5 days ago and went to his PCP where he was advised to go to the ED for a possible DVT.While in [facility] a venous doppler was performed which revealed negative for DVT and an arterial doppler was also done and result showed total occlusion of the arterial ultrasound to the left proximal popliteal colloidal circulation .Reportedly patient developed intermittent claudication of left foot and a cardiology was consulted .Patient underwent an ultrasound guided vascular access of the right common femoral artery angiography in common femoral artery with run off to right foot ,abdominal aortogram with bilateral iliofemoral runoff ,selective left lower extremity angioraphy with femoral artery runoff to the left foot ,intravascular ultrasound to left SFA /popliteal artery mechanical thrombectomy for left popliteal thrombus, percutaneous transluminal angiography to the left popliteal artery with balloon bringing down the stenosis to 10% and MIGRATION SPECIALIST to the left posterior tibial artery with balloon bringing down the stenosis from 70% to less than 10% as per documentation report.Patient was started on heparin and nitroglycerin drip per cardio recommendation to improve the flow.As per documented report ,popliteal artery collapsed again but patient still has a flow in the lower extremity but slow due to his severe microvascular disease in the foot ,hence patient need to be transferred for a thrombectomy versus bypass surgery evaluation. was then consulted prior to the transfer as per report and patient was accepted by Dr.Mamachen Call. Patient reports he smokes 1 pack of cigarette every 2 days x 15 years and drinks 3 beers every weekend. Seen and examined patient in room 210 awake,alert and coherent,denies chest pain ,palpitation,cough,fever and shortness of breath. Latest vital signs temperature 98.1, heart rate 70, blood pressure 149/41 saturation 97% on room air. Patient remain in ICU on nitro and heparin drip. 01/10 The patient is seen and examined in room 210. As the patient is only Latvian speaking, therefore a nurse was used as a hosiery mender. The patient said that he was feeling. Today. He is continued on the IV heparin therefore the patient is in ICU. Cardiovascular and cardiology consulted. Anterior and posterior pedis pulses were checked by Doppler. Left foot had stronger posterior pedis as compared to anterior pedis pulse and right foot had stronger anterior pedis compared to posterior pedis. As per cardiology the patient had NSTEMI approximately 2 wk ago in 12/2024, and coronary angiogram approximately 2 weeks ago demonstrating nonobstructive CAD, and claudication was sent to [facility] by his PCP for further evaluation of left lower extremity discomfort and discoloration. DVT was reportedly ruled out for the left lower extremity. Left lower extremity arterial ultrasound was reported to have a total occlusion of the left proximal popliteal artery with collateral circulation and distal popliteal reconstitution with monophasic waveforms distally. He underwent a peripheral angiogram of the left lower extremity on 12/30/[address] Nicole Preciado, s/p successful mechanical thrombectomy followed by balloon angioplasty of the left popliteal artery and successful MIGRATION SPECIALIST to the left posterior tibial artery. Repeat left lower extremity arterial Doppler on 01/08/2025 revealed monophasic waveforms from the mid and distal superficial femoral artery to the dorsalis pedis artery, no appreciable flow within the popliteal artery consistent with complete occlusion. The patient was transferred to [facility] for evaluation by CV surgery for a fem-pop. Cardiology recommend to keep DAPT on hold and continue heparin infusion. They also ordered to obtain coronary angiogram, echocardiogram, and cardiology notes from MRMS. Cardiovascular surgery ordered CT angio abdominal aorta. 01/11/2025: Patient is seen in the room 224. CT angio showed near-complete occlusive thrombus in the left popliteal artery with distal recanalization, thrombosis of the distal right posterior tibial artery, multilevel severe atherosclerotic disease involving the bilateral iliac, femoral, popliteal, and tibial arterial systems, with the most significant stenoses involving the left popliteal artery, left tibioperoneal trunk , and left anterior tibial artery origin. Cardiovascular surgeon advised that the patient will need a left femoral to posterior tibial bypass to bypass is occluded popliteal artery. Examined soft tissue boil on the right shoulder scapula. 01/12 The patient was seen and examined in room 224. As the patient is Latvian speaking only, a nurse was used as a hosiery mender converse with the patient. Soft tissue ultrasound showed possible subcutaneous abscess in the right scapular region therefore CT scan with contrast of upper extremity was ordered. Cardiology saw the patient today and recommended to start the patient on aspirin 81 mg, echo and placed another order for left heart catheterization report from admission. As per cardiovascular surgeon the patient is planned for a left femoral artery to posterior tibial artery bypass. Cardiology ordered echo that showed LVEF of 60-65% and added aspirin 81 mg. 01/13 The patient was seen and examined in room 224. As the patient is Latvian- speaking only, a nurse was used as a hosiery mender to converse with the patient. As per cardiovascular surgeon the patient is planned for a left femoral artery to posterior tibial artery bypass. CT scan with contrast of upper extremity showed superficial abscess with surrounding cellulitic change therefore General surgery consult is placed and blood cultures were ordered. Medical records were obtained from [facility] today REVIEW OF SYSTEMS CONSTITUTIONAL: Denies fevers, chills, or night sweats. No unintentional weight loss reported. NEUROLOGICAL: Denies headache, amaurosis fugax, motor weakness, sensory deficit, vertigo/spinning sensation, gait abnormalities, or tremors. ENT: No hearing loss, otalgia, otorrhea, rhinitis, rhinorrhea, hoarseness, or sore throat. CARDIOVASCULAR: Denies any exertional angina, dyspnea on exertion, orthopnea, paroxysmal nocturnal dyspnea, palpitations, life-threatening arrhythmias, claudication. PULMONARY: Denies any shortness of breath, cough, phlegm/sputum, hemoptysis, pleuritic chest pain. SLEEP: Denies morning headaches, daytime somnolence or napping. Denies difficulty falling asleep, staying asleep, waking from sleep. Denies knowledge of snoring. GASTROINTESTINAL: Denies any type of dysphagia to either liquids or solids. Denies nausea, vomiting, pyrosis, early satiety, abdominal pain, diarrhea, constipation, or changes in stool consistency or caliber. Denies coffee-ground emesis, hematemesis, hematochezia, or melanotic stools. GENITOURINARY: Denies frequency, urgency, nocturia, hematuria or incontinence ( Storage/Irritative symptoms.) Low urinary stream, straining to void, urinary intermittency or hesitancy, splitting of the voiding stream, terminal dribbling. ENDOCRINOLOGIC: Denies polyuria, polydipsia, polyphagia or heat/cold intolerances. PHYSICAL EXAM GENERAL APPEARANCE: The patient is awake, alert, and oriented, in no acute cardiopulmonary distress. Boil on the right upper lateral back NEUROLOGICAL: Cranial nerves II-XII grossly intact. Motor is 5/5 in bilateral upper and lower extremities proximal to distal. No sensory deficits. HEENT: Face is symmetric. Pupils are equal and reactive. Extraocular movements are intact. NECK: Supple. No JVD. No thyromegaly. No submental, submandibular, pre- /postauricular, occipital or supraclavicular lymphadenopathy. CHEST: Normal chest expansion. No Telemetry. LUNGS: Absence of any rales, rhonchi or any wheezing. CARDIOVASCULAR: Regular. S1 and S2 normal. No appreciable rubs, murmurs or gallops. ABDOMEN: Soft, nontender, and nondistended. There is no rebound, voluntary guarding, or rigidity. : Deferred. No Swenson. EXTREMITIES: Non-edematous and not cyanotic. Left foot: Stronger posterior pedis as compared to anterior pedis. Right foot: Stronger anterior pedis compared to posterior pedis SKIN: No skin breakdown. Vital Signs (last 8hr) Date Time Temp Pulse Resp B/P (MAP) Pulse Ox O2 Delivery O2 Flow Rate FiO2 01/13/25 07:56 98.1 65 18 117/60 99 Room Air 01/13/25 03:34 97.9 59 16 111/57 98 Room Air LABS: Laboratory: Test 01/13/25 03:17 01/12/25 16:44 Range/Units White Blood Count 6.8 4.8-10.8 K/uL Red Blood Count 3.82 L 4.50-6.20 MIL/uL Hemoglobin 12.2 L 14.0-18.0 g/dL Hematocrit 35.9 L 42-54 % Mean Corpuscular Volume 94.0 79-99 fL Mean Corpuscular Hemoglobin 31.9 27.0-33.0 pg Mean Corpuscular Hemoglobin Concent 34.0 32.0-36.0 g/dL Red Cell Distribution Width 12.3 11.0-15.5 % Platelet Count 248 130-400 K/uL Mean Platelet Volume 9.9 7.5-10.5 fL Immature Granulocyte % (Auto) 0.3 0-1 % Neutrophils (%) (Auto) 44.5 40.0-77.0 % Lymphocytes (%) (Auto) 44.2 21.0-51.0 % Monocytes (%) (Auto) 7.1 3.0-13.0 % Eosinophils (%) (Auto) 3.0 0.0-8.0 % Basophils (%) (Auto) 0.9 0.0-5.0 % Neutrophils # (Auto) 3.0 1.8-7.7 K/uL Lymphocytes # (Auto) 3.0 1.0-4.8 K/uL Monocytes # (Auto) 0.5 0.1-1.0 K/uL Eosinophils # (Auto) 0.20 0.00-0.70 K/uL Basophils # (Auto) 0.06 0.00-0.20 K/uL Absolute Immature Granulocyte (auto 0.02 0-1 K/uL Nucleated Red Blood Cells 0.0 0.0-0.19 % Sodium Level 140 136-145 mmol/L Potassium Level 3.5 3.5-5.1 mmol/L Chloride Level 104 101-111 mmol/L Carbon Dioxide Level 28 21-32 mmol/L Blood Urea Nitrogen 20 H 7-18 mg/dL Creatinine 0.9 0.5-1.3 mg/dL Glomerular Filtration Rate Calc 100 >90 mL/min Random Glucose 137 H 70-105 mg/dL Total Calcium 8.7 8.5-10.1 mg/dL Total Bilirubin 0.3 # 0.2-1.0 mg/dL Aspartate Amino Transf (AST/SGOT) 21 10-37 U/L Alanine Aminotransferase (ALT/SGPT) 28 # 12-78 U/L Alkaline Phosphatase 77 50-136 U/L Total Protein 6.4 6.0-8.3 g/dL Albumin 3.3 L 3.5-5.0 g/dL Prothrombin Time 10.0 9.6-11.6 SEC Prothromb Time International Ratio 0.94 0.85-1.15 Activated Partial Thromboplast Time 56.1 H 26.3-35.5 SEC Current Medications Medications (Trade) Dose Ordered Sig/Zac Route PRN Reason Start Time Stop Time Status Last Admin Dose Admin Acetaminophen (TYLenol 325MG TAB) 650 mg Q6H PRN PO MILD PAIN (1-3) 01/09/25 19:30 02/08/25 19:29 01/09/25 20:53 650 MG Albuterol (DUOneb) 1 udvial Q6H PRN IH SHORTNESS OF BREATH 01/09/25 19:30 02/08/25 19:29 Amlodipine Besylate (NorvASC 5MG TAB) 5 mg DAILY PO 01/10/25 17:00 02/09/25 16:59 01/12/25 10:38 5 MG Amlodipine Besylate (NorvASC 5MG TAB) 10 mg DAILY PO 01/10/25 09:00 01/10/25 05:49 DC Aspirin (Aspirin 81mg Chew Tab) 81 mg DAILY PO 01/13/25 09:00 02/12/25 08:59 Atorvastatin Calcium (LIPItor 40MG) 40 mg HS PO 01/10/25 21:00 02/09/25 20:59 01/12/25 21:09 40 MG Carvedilol (Coreg 3.125MG) 3.125 mg BID PO 01/10/25 09:00 02/09/25 08:59 01/12/25 21:10 3.125 MG Famotidine (Pepcid 20mg Vial) 20 mg BID IV 01/09/25 21:00 02/08/25 20:59 01/12/25 21:10 20 MG Gabapentin (NEURontin 100 mg CAP) 200 mg BID PO 01/10/25 09:00 02/09/25 08:59 01/12/25 21:10 200 MG Heparin Sodium (Porcine) (HEParin 5,000 UNIT VIAL) *calculation based on ACTUAL B... AD PRN IV HEPARIN PROTOCOL 01/10/25 23:30 02/09/25 23:29 01/10/25 23:06 3,000 UNIT Heparin Sodium (Porcine) (HEParin 5,000 UNIT VIAL) 2,700 unit ONCE IV 01/09/25 20:30 01/09/25 23:59 DC 01/09/25 20:56 2,700 UNIT Heparin Sodium/ Dextrose 250 ml @ 0 mls/hr Q6H IV 01/09/25 20:00 02/08/25 19:59 01/11/25 21:55 11.55 MLS/HR Morphine Sulfate (morPHINE 2MG SYG) 2 mg Q6H PRN IVP SEVERE PAIN (7-10) 01/09/25 19:30 01/16/25 19:29 Multivitamins Therapeutic (Multivitamin Tablet) 1 tab DAILY PO 01/10/25 09:00 02/09/25 08:59 01/12/25 10:37 1 TAB Ondansetron HCl (zoFRAN 4MG INJ) 4 mg Q6H PRN IVP NAUSEA/VOMITING 01/09/25 19:30 02/08/25 19:29 Sodium Chloride 1,000 ml @ 50 mls/hr Q20H IV 01/09/25 19:30 02/08/25 19:29 01/12/25 07:30 50 MLS/HR DIAGNOSTICS / RADIOLOGY: PATIENT: DEMARCUS CARLIN MR#: [id number] : 1965 SEX: M AGE: 59 LOCATION: 2DH ORDER 1005 STATUS: ADM IN REPORT#: [id number] SERVICE [id number] REASON: Possible subcutaneous abscess in the right scapular region ORDERING PHYSICIAN: SHEREEN VALVERDE MD PROCEDURE: UPP EXTWWO - CT UPPER EXT W/WO CONTRAST EXAM: CT UPPER EXTREMITY, RIGHT, WITH AND WITHOUT INTRAVENOUS CONTRAST Technique: Noncontrast and contrast-enhanced helical computed tomography of the right posterior scapular region with multiplanar reformations; iterative reconstruction applied. CTDIvol 17.60 mGy; DLP 470.10 mGy???cm. Contrast: Standard dose of intravenous contrast administered. Clinical Information: Possible subcutaneous abscess in the right scapular region. Findings: Soft tissues: Ill-defined subcutaneous fluid collection in the right posterior scapular region measuring approximately 3.0 ??? 1.7 ??? 2.4 cm (anteroposterior ??? transverse ??? craniocaudal). The collection demonstrates peripheral enhancement compatible with an organizing fluid collection/abscess. Surrounding subcutaneous fat stranding is present. Muscles: Adjacent shoulder girdle musculature is preserved without intramuscular collection. Bones/joints: Scapula, clavicle, and visualized humeral head show no cortical destruction or acute osseous abnormality. Neurovascular structures: No regional vascular complication is identified on this study. Chest wall/lung apices (limited): No focal abnormality in the imaged portions. Impression: * Comparison: Compared with ultrasound of the soft tissues of the upper back dated 01/11/2025 19:08 EDT, there remains a right posterior scapular subcutaneous fluid collection???sonographically complex and on computed tomography measuring approximately 3.0 ??? 1.7 ??? 2.4 cm???with peripheral enhancement consistent with a superficial abscess; surrounding cellulitic change is present. * No evidence of intramuscular extension or osseous involvement on computed tomography. * Correlate clinically for signs of infection; consider targeted incision and drainage or image-guided aspiration for culture and sensitivity, and antibiotic therapy per institutional protocol. /[place] DICTATED BY: JENNIFER ALFREDO MD DATE: 01/13/25121 ELECTRONICALLY SIGNED BY: JENNIFER ALFREDO MD DATE: 01/13/25121 ASSESSMENT: Peripheral arterial disease POA Peripheral vascular disease POA S/P peripheral angogram with MIGRATION SPECIALIST POA Left proximal popliteal artery occlusion POA Worsening intermittent claudication POA Essential Hypertension POA Hyperlipidemia POA Coronary artery disease POA Hyperglycemia POA Nicotine dependence POA Alcoholism POA Soft tissue swelling PLAN: Peripheral arterial disease, Peripheral vascular disease, S/P peripheral angiogram with MIGRATION SPECIALIST , Left proximal popliteal artery occlusion, Worsening intermittent claudication * Cardiovascular surgeon and Cardiology consulted for evaluation for femoral popliteal bypass surgery * On carvedilol 3.125 b.i.d. and gabapentin 200 mg b.i.d., amlodipine 5 mg OD * As per cardiology, keep DAPT on hold and continue heparin infusion * Cardiology added aspirin 81 mg today * Echocardiogram shows LVEF of 60-65% * Medical records obtained from [facility] * CT angio showed near-complete occlusive thrombus in the left popliteal artery with distal recanalization, thrombosis of the distal right posterior tibial artery, multilevel severe atherosclerotic disease involving the bilateral iliac, femoral, popliteal, and tibial arterial systems, with the most significant stenoses involving the left popliteal artery, left tibioperoneal trunk , and left anterior tibial artery origin. * Cardiovascular surgeon advised that the patient will need a left femoral to posterior tibial bypass to bypass the occluded popliteal artery. Planned for this week. Hyperlipidemia * Lipid profile showed triglycerides 0 8, total cholesterol 195, LDL 93, and HDL 28. * Patient is continued on atorvastatin 40 mg home medications Soft tissue swelling * Boil in the right shoulder scapula * Soft tissue ultrasound of right shoulder scapula showed possible subcutaneous abscess in the right scapular region * CT scan with contrast of upper extremity showed superficial abscess with surrounding cellulitic change. * General surgery consulted * Blood cultures ordered ATTESTATION BY PHYSICIAN I have seen and examined the patient. I reviewed the documentation, medical decision making, and treatment plan as noted by the resident physician above. I agree with the findings and plan of care. MAG RESTREPO MD, SYED M MD Jan 13, 2025 08:33
--- NOTE | 2025-01-13 09:20 | NUR ---
Medical records from [facility] requested, received and place in the chart.
[2025-01-13] MEDS: ASPIRIN 81MG CHEW TAB PO SCH (09:57)
--- NOTE | 2025-01-13 16:27 | PN ---
Consulting physician:Dr Herring Consulting service: General surgery Reason for consultation: Right scapular abscess History of present illness: This is a 59-year-old male with a medical history listed below that has been consulted to surgery for concerns of right scapular abscess. Patient initially presented for concerns of lower extremity pain where DVT was noted. Patient is currently on anticoagulation. Upon workup imaging performed and concerns for soft tissue ultrasound reporting possible abscess to right scapular region. On physical exam fluctuance noted but no significant induration or cellulitis or any form of erythema noted. No drainage at time of exam. Images taken to share with surgeon at this time. Patient currently on diet. Patient issue with no acute concerns reported. WBCs 6.8 with a hemoglobin of 12.2. Medical history: Hypertension and hyperlipidemia PAST SURGICAL HISTORY: Patient denies PAST SOCIAL HISTORY: Patient admits to smoking one pack of cigarette every two days 15 years and occasionally drinks three beers per weekend denies recreational drug use FAMILY HISTORY: Noncontributory Coded Allergies: No Known Drug Allergies (Unverified Allergy, Unknown, 01/09/25) Review of systems: General: No Fever, No Chills, No Night Sweats, No Fatigue, No Malaise, No Appetite, No Other HEENT: No Head Aches, No Visual Changes, No Eye Pain, No Ear Pain, No Dysphasia, No Sinus Congestion, No Post Nasal Drip, No Sore Throat, No Other Pulmonary: No Dyspnea, No Cough, No Pleuritic Chest Pain, No Other Cardiovascular: No: Chest Pain, Palpitations, Orthopnea, Paroxysmal No Dyspnea, Edema, Lt Headedness, Other Gastrointestinal: No: Nausea, Vomiting, Diarrhea, Constipation, Melena, Hematochezia, Other Genitourinary: No Dysuria, No Frequency, No Incontinence, No Hematuria, No Retention, No Other Musculoskeletal: No: other, neck pain, shoulder pain, arm pain, back pain, hand pain, leg pain, foot pain Skin: No Urticaria, No Rash, No Other Neurological: No: Weakness, Numbness, Incoordination, Change in speech, Confusion, Seizures, Other Physical exam: General: Awake alert and oriented Heart: Regular rate and rhythm} Lungs: Clear to auscultation no distress Abdomen: [Soft, nontender, nondistended Right shoulder with fluctuant non indurated with non erythematous lesion Assessment: This is a 59-year-old male with concerns of right scapular abscess Plan: This point in time images of concerning abscess taken to share with Dr. Zhu With no significant induration we will continue with conservative management Patient to start with warm compresses Surgical team to re-evaluate patient tomorrow Nursing report any further acute events Surgical case has been discussed with my supervising physician in the above plan was formulated and agreed upon Supervising physicians evaluation the patient be done within next 24 hours We appreciate the hospitalist team for us to participate in patient's care. Greater than 55 minutes of time spent patient, reviewing chart, working on documentation Vitals/Labs Vital Signs Date Time Temp Pulse Resp B/P (MAP) Pulse Ox O2 Delivery O2 Flow Rate FiO2 01/13/25 16:17 98.2 74 16 113/70 99 Room Air 01/13/25 08:00 0 21 Laboratory Tests 01/13/25 03:17 Medications Current Medications Acetaminophen 650 mg Q6H PRN PO Last administered on 01/09/25at 20:53; Start 01/09/25 at 19:30; Stop 02/08/25 at 19:29 Ondansetron HCl 4 mg Q6H PRN IVP; Start 01/09/25 at 19:30; Stop 02/08/25 at 19:29 Sodium Chloride 1,000 ml @ 50 mls/hr Q20H IV Last administered on 01/12/25at 07:30; Start 01/09/25 at 19:30; Stop 02/08/25 at 19:29 Albuterol 1 udvial Q6H PRN IH; Start 01/09/25 at 19:30; Stop 02/08/25 at 19:29 Morphine Sulfate 2 mg Q6H PRN IVP; Start 01/09/25 at 19:30; Stop 01/16/25 at 19:29 Heparin Sodium/ Dextrose 250 ml @ 0 mls/hr Q6H IV Last administered on 01/13/25at 10:04; Start 01/09/25 at 20:00; Stop 02/08/25 at 19:59 Famotidine 20 mg BID IV Last administered on 01/13/25at 09:58; Start 01/09/25 at 21:00; Stop 02/08/25 at 20:59 Multivitamins Therapeutic 1 tab DAILY PO Last administered on 01/13/25at 09:57; Start 01/10/25 at 09:00; Stop 02/09/25 at 08:59 Heparin Sodium (Porcine) 2,700 unit ONCE IV Last administered on 01/09/25at 20:56; Start 01/09/25 at 20:30; Stop 01/09/25 at 23:59; Status DC Atorvastatin Calcium 40 mg HS PO Last administered on 01/12/25at 21:09; Start 01/10/25 at 21:00; Stop 02/09/25 at 20:59 Carvedilol 3.125 mg BID PO Last administered on 01/13/25at 09:56; Start 01/10/25 at 09:00; Stop 02/09/25 at 08:59 Gabapentin 200 mg BID PO Last administered on 01/13/25at 09:57; Start 01/10/25 at 09:00; Stop 02/09/25 at 08:59 Amlodipine Besylate 10 mg DAILY PO; Start 01/10/25 at 09:00; Stop 01/10/25 at 05:49; Status DC Amlodipine Besylate 5 mg DAILY PO Last administered on 01/13/25at 09:57; Start 01/10/25 at 17:00; Stop 02/09/25 at 16:59 Iohexol 75 ml STK-MED ONCE IV; Start 01/10/25 at 18:14; Stop 01/10/25 at 18:14; Status DC Iohexol 50 ml STK-MED ONCE IV; Start 01/10/25 at 18:14; Stop 01/10/25 at 18:14; Status DC Heparin Sodium (Porcine) *calculation based on ACTUAL B... AD PRN IV Last administered on 01/10/25at 23:06; Start 01/10/25 at 23:30; Stop 02/09/25 at 23:29 Aspirin 81 mg DAILY PO Last administered on 01/13/25at 09:57; Start 01/13/25 at 09:00; Stop 02/12/25 at 08:59 Iohexol 75 ml STK-MED ONCE IV; Start 01/12/25 at 11:33; Stop 01/12/25 at 11:34; Status DC RONI BUCHANAN Jr. PAC Jan 13, 2025 16:27
[2025-01-13 18:16] LABS: INR 0.94 (0.85-1.15)
[2025-01-13] MEDS ORDERED: PoTASSium chl 10% ELIXIR 20MEQ 20 MEQ/15 ML UDCUP PO PRN (19:30)
[2025-01-13] MEDS ORDERED: PoTASSium chloRIDE 20MEQ ER 20 MEQ ERTAB PO PRN (19:30)
--- NOTE | 2025-01-13 21:52 | CONS ---
DATE OF SERVICE: 01/12/2025 TIME: 11 a.m. HISTORY OF PRESENT ILLNESS: The patient is a 59-year-old gentleman who has significant peripheral arterial disease. He was transferred here from an outside hospital. He had a percutaneous intervention at that time with reocclusion of his popliteal artery on the left leg. He complains of intermittent pain on the left foot. Vascular Surgery was consulted. PHYSICAL EXAMINATION: NEUROLOGIC: Alert and oriented. CARDIOVASCULAR: S1, S2, regular rate and rhythm. RESPIRATORY: Clear to auscultation bilaterally. EXTREMITIES: Are warm all the way down to the ankles; however, bilateral feet are cool. Very weak pulses bilaterally. ASSESSMENT AND PLAN: This is a patient who has significant peripheral arterial disease. On angiogram, there is an occluded popliteal on the left side with reconstitution of the posterior tibial. He will benefit from a left femoral posterior tibial bypass. I explained the benefits and the risks including loss of limb, loss of life, bleeding, infection, stroke, and others. He agrees and he wished to proceed with surgery in the upcoming days. TID: [id number] RECEIPT: [id number]
[2025-01-14] VITALS (27 sets, daily range): BP systolic 113–150; BP diastolic 64–87; PULSE 60–83; RESP 15–21; TEMP 97.3–98.3; O2SAT 96–98
[2025-01-14 03:06] LABS: NUCLEATED RED BLOOD CELLS 0.0 % (0.0-0.19); PLATELET COUNT (AUTO) 247.0 K/uL (130-400); RED BLOOD CELL COUNT(AUTO) 3.8 MIL/uL (4.50-6.20); RED CELL DISTRIBUTION WIDTH 12.3 % (11.0-15.5); WHITE BLOOD COUNT (AUTO) 7.1 K/uL (4.8-10.8)
[2025-01-14 03:17] LABS: CREATININE 1.1 mg/dL (0.5-1.3); GLOMERULAR FILTR. RATE CALC 78.0 mL/min (>90); GLUCOSE,RANDOM 119.0 mg/dL (70-105); SODIUM SERUM 140.0 mmol/L (136-145); UREA NITROGEN, BLOOD 16.0 mg/dL (7-18)
[2025-01-14 03:32] LABS: INR 0.95 (0.85-1.15)
--- NOTE | 2025-01-14 10:12 | NUR ---
Patient taken to OR at this time
[2025-01-14] MEDS ORDERED: LIDOCAINE PF 100MG/5ML (2%) SYRINGE 5ML ONE (10:57)
[2025-01-14] MEDS ORDERED: NEOSTIGMINE METHYLSULFATE 1MG/ML IV ONE (10:58)
[2025-01-14] MEDS ORDERED: GLYCOPYRROLATE 0.2 MG/ML 5 ML VIAL ONE (10:58)
[2025-01-14] MEDS ORDERED: SUCCINYLCHOLINE CHLORIDE 20 MG/ML 10 ML VIAL ONE (10:58)
[2025-01-14] MEDS ORDERED: MIDAZOLAM HCL 1 MG/ML 2ML VIAL ONE (11:00)
[2025-01-14] MEDS ORDERED: HEParin-NS 1,000 UNIT/500 ML 500 ML IV ONE (11:26)
[2025-01-14] MEDS: SUGAMMADEX SODIUM 200 MG/2 ML VIAL IV ONE (11:50)
[2025-01-14] MEDS: FAMOTIDINE 20MG VIAL IV ONE (11:51)
--- NOTE | 2025-01-14 13:39 | PN ---
[facility] PROGRESS NOTE Date of Service: Jan 14, 2025 Time of Service: 13:38 SUBJECTIVE: This is a 59-year-old Ecuadorean-speaking male with past medical history of hypertension and hyperlipidemia was transferred from [facility] possible fem-pop evaluation.As per patient he started having severe left foot pain 5 days ago and went to his PCP where he was advised to go to the ED for a possible DVT.While in [facility] a venous doppler was performed which revealed negative for DVT and an arterial doppler was also done and result showed total occlusion of the arterial ultrasound to the left proximal popliteal colloidal circulation .Reportedly patient developed intermittent claudication of left foot and a cardiology was consulted .Patient underwent an ultrasound guided vascular access of the right common femoral artery angiography in common femoral artery with run off to right foot ,abdominal aortogram with bilateral iliofemoral runoff ,selective left lower extremity angioraphy with femoral artery runoff to the left foot ,intravascular ultrasound to left SFA /popliteal artery mechanical thrombectomy for left popliteal thrombus, percutaneous transluminal angiography to the left popliteal artery with balloon bringing down the stenosis to 10% and FILM RENTAL CLERK to the left posterior tibial artery with balloon bringing down the stenosis from 70% to less than 10% as per documentation report.Patient was started on heparin and nitroglycerin drip per cardio recommendation to improve the flow.As per documented report ,popliteal artery collapsed again but patient still has a flow in the lower extremity but slow due to his severe microvascular disease in the foot ,hence patient need to be transferred for a thrombectomy versus bypass surgery evaluation. was then consulted prior to the transfer as per report and patient was accepted by Dr.Mamachen Call. Patient reports he smokes 1 pack of cigarette every 2 days x 15 years and drinks 3 beers every weekend. Seen and examined patient in room 210 awake,alert and coherent,denies chest pain ,palpitation,cough,fever and shortness of breath. Latest vital signs temperature 98.1, heart rate 70, blood pressure 149/41 saturation 97% on room air. Patient remain in ICU on nitro and heparin drip. 01/10 The patient is seen and examined in room 210. As the patient is only Ecuadorean speaking, therefore a nurse was used as a wind turbine service technician. The patient said that he was feeling. Today. He is continued on the IV heparin therefore the patient is in ICU. Cardiovascular and cardiology consulted. Anterior and posterior pedis pulses were checked by Doppler. Left foot had stronger posterior pedis as compared to anterior pedis pulse and right foot had stronger anterior pedis compared to posterior pedis. As per cardiology the patient had NSTEMI approximately 2 wk ago in 12/2024, and coronary angiogram approximately 2 weeks ago demonstrating nonobstructive CAD, and claudication was sent to [facility] by his PCP for further evaluation of left lower extremity discomfort and discoloration. DVT was reportedly ruled out for the left lower extremity. Left lower extremity arterial ultrasound was reported to have a total occlusion of the left proximal popliteal artery with collateral circulation and distal popliteal reconstitution with monophasic waveforms distally. He underwent a peripheral angiogram of the left lower extremity on 12/30/[address] Nicole Preciado, s/p successful mechanical thrombectomy followed by balloon angioplasty of the left popliteal artery and successful FILM RENTAL CLERK to the left posterior tibial artery. Repeat left lower extremity arterial Doppler on 01/08/2025 revealed monophasic waveforms from the mid and distal superficial femoral artery to the dorsalis pedis artery, no appreciable flow within the popliteal artery consistent with complete occlusion. The patient was transferred to [facility] for evaluation by CV surgery for a fem-pop. Cardiology recommend to keep DAPT on hold and continue heparin infusion. They also ordered to obtain coronary angiogram, echocardiogram, and cardiology notes from MRMS. Cardiovascular surgery ordered CT angio abdominal aorta. 01/11/2025: Patient is seen in the room 224. CT angio showed near-complete occlusive thrombus in the left popliteal artery with distal recanalization, thrombosis of the distal right posterior tibial artery, multilevel severe atherosclerotic disease involving the bilateral iliac, femoral, popliteal, and tibial arterial systems, with the most significant stenoses involving the left popliteal artery, left tibioperoneal trunk , and left anterior tibial artery origin. Cardiovascular surgeon advised that the patient will need a left femoral to posterior tibial bypass to bypass is occluded popliteal artery. Examined soft tissue boil on the right shoulder scapula. 01/12 The patient was seen and examined in room 224. As the patient is Ecuadorean speaking only, a nurse was used as a wind turbine service technician converse with the patient. Soft tissue ultrasound showed possible subcutaneous abscess in the right scapular region therefore CT scan with contrast of upper extremity was ordered. Cardiology saw the patient today and recommended to start the patient on aspirin 81 mg, echo and placed another order for left heart catheterization report from admission. As per cardiovascular surgeon the patient is planned for a left femoral artery to posterior tibial artery bypass. Cardiology ordered echo that showed LVEF of 60-65% and added aspirin 81 mg. 01/13 The patient was seen and examined in room 224. As the patient is Ecuadorean- speaking only, a nurse was used as a wind turbine service technician to converse with the patient. As per cardiovascular surgeon the patient is planned for a left femoral artery to posterior tibial artery bypass. CT scan with contrast of upper extremity showed superficial abscess with surrounding cellulitic change therefore General surgery consult is placed and blood cultures were ordered. Medical records were obtained from [facility] today 01/14 The patient was NPO and planned for left femoral to posterior tibial bypass with CryoVein surgery today which was done successfully. After surgery the patient was started on clopidogrel, cefazolin, tramadol and acetaminophen for pain. He was also started on heart healthy diet. General surgery saw the patient and ordered conservative management with warm compressions. Patient's blood culture showed no growth for 24 hours REVIEW OF SYSTEMS CONSTITUTIONAL: Denies fevers, chills, or night sweats. No unintentional weight loss reported. NEUROLOGICAL: Denies headache, amaurosis fugax, motor weakness, sensory deficit, vertigo/spinning sensation, gait abnormalities, or tremors. ENT: No hearing loss, otalgia, otorrhea, rhinitis, rhinorrhea, hoarseness, or sore throat. CARDIOVASCULAR: Denies any exertional angina, dyspnea on exertion, orthopnea, paroxysmal nocturnal dyspnea, palpitations, life-threatening arrhythmias, claudication. PULMONARY: Denies any shortness of breath, cough, phlegm/sputum, hemoptysis, pleuritic chest pain. SLEEP: Denies morning headaches, daytime somnolence or napping. Denies difficulty falling asleep, staying asleep, waking from sleep. Denies knowledge of snoring. GASTROINTESTINAL: Denies any type of dysphagia to either liquids or solids. Denies nausea, vomiting, pyrosis, early satiety, abdominal pain, diarrhea, constipation, or changes in stool consistency or caliber. Denies coffee-ground emesis, hematemesis, hematochezia, or melanotic stools. GENITOURINARY: Denies frequency, urgency, nocturia, hematuria or incontinence (Storage/Irritative symptoms.) Low urinary stream, straining to void, urinary intermittency or hesitancy, splitting of the voiding stream, terminal dribbling. ENDOCRINOLOGIC: Denies polyuria, polydipsia, polyphagia or heat/cold intolerances. PHYSICAL EXAM GENERAL APPEARANCE: The patient is awake, alert, and oriented, in no acute cardiopulmonary distress. Boil on the right upper lateral back NEUROLOGICAL: Cranial nerves II-XII grossly intact. Motor is 5/5 in bilateral upper and lower extremities proximal to distal. No sensory deficits. HEENT: Face is symmetric. Pupils are equal and reactive. Extraocular movements are intact. NECK: Supple. No JVD. No thyromegaly. No submental, submandibular, pre- /postauricular, occipital or supraclavicular lymphadenopathy. CHEST: Normal chest expansion. No Telemetry. LUNGS: Absence of any rales, rhonchi or any wheezing. CARDIOVASCULAR: Regular. S1 and S2 normal. No appreciable rubs, murmurs or gallops. ABDOMEN: Soft, nontender, and nondistended. There is no rebound, voluntary guarding, or rigidity. : Deferred. No Swenson. EXTREMITIES: Non-edematous and not cyanotic. Left foot: Stronger posterior pedis as compared to anterior pedis. Right foot: Stronger anterior pedis compared to posterior pedis SKIN: No skin breakdown. Vital Signs (last 8hr) Date Time Temp Pulse Resp B/P (MAP) Pulse Ox O2 Delivery O2 Flow Rate FiO2 01/14/25 13:20 97.3 80 15 136/82 98 Nonrebreathing Mask 10.0 100 01/14/25 13:15 97.3 83 15 120/85 98 Nonrebreathing Mask 10.0 100 01/14/25 10:15 97.3 63 18 113/69 99 Room Air 21 01/14/25 09:29 120/68 01/14/25 08:14 98.1 63 16 120/68 98 Room Air 01/14/25 08:00 98 Room Air* 0 21 LABS: Laboratory: Test 01/14/25 02:30 01/13/25 11:43 01/13/25 03:17 Range/Units White Blood Count 7.1 4.8-10.8 K/uL Red Blood Count 3.80 L 4.50-6.20 MIL/uL Hemoglobin 12.1 L 14.0-18.0 g/dL Hematocrit 35.1 L 42-54 % Mean Corpuscular Volume 92.4 79-99 fL Mean Corpuscular Hemoglobin 31.8 27.0-33.0 pg Mean Corpuscular Hemoglobin Concent 34.5 32.0-36.0 g/dL Red Cell Distribution Width 12.3 11.0-15.5 % Platelet Count 247 130-400 K/uL Mean Platelet Volume 9.8 7.5-10.5 fL Nucleated Red Blood Cells 0.0 0.0-0.19 % Prothrombin Time 10.1 9.6-11.6 SEC Prothromb Time International Ratio 0.95 0.85-1.15 Activated Partial Thromboplast Time 66.6 H 26.3-35.5 SEC Sodium Level 140 136-145 mmol/L Potassium Level 3.9 3.5-5.1 mmol/L Chloride Level 102 101-111 mmol/L Carbon Dioxide Level 31 21-32 mmol/L Blood Urea Nitrogen 16 7-18 mg/dL Creatinine 1.1 0.5-1.3 mg/dL Glomerular Filtration Rate Calc 78 >90 mL/min Random Glucose 119 H 70-105 mg/dL Total Calcium 8.8 8.5-10.1 mg/dL Whole Blood Glucose 117 H 70-110 MG/DL Immature Granulocyte % (Auto) 0.3 0-1 % Neutrophils (%) (Auto) 44.5 40.0-77.0 % Lymphocytes (%) (Auto) 44.2 21.0-51.0 % Monocytes (%) (Auto) 7.1 3.0-13.0 % Eosinophils (%) (Auto) 3.0 0.0-8.0 % Basophils (%) (Auto) 0.9 0.0-5.0 % Neutrophils # (Auto) 3.0 1.8-7.7 K/uL Lymphocytes # (Auto) 3.0 1.0-4.8 K/uL Monocytes # (Auto) 0.5 0.1-1.0 K/uL Eosinophils # (Auto) 0.20 0.00-0.70 K/uL Basophils # (Auto) 0.06 0.00-0.20 K/uL Absolute Immature Granulocyte (auto 0.02 0-1 K/uL Total Bilirubin 0.3 # 0.2-1.0 mg/dL Aspartate Amino Transf (AST/SGOT) 21 10-37 U/L Alanine Aminotransferase (ALT/SGPT) 28 # 12-78 U/L Alkaline Phosphatase 77 50-136 U/L Total Protein 6.4 6.0-8.3 g/dL Albumin 3.3 L 3.5-5.0 g/dL Current Medications Medications (Trade) Dose Ordered Sig/Zac Route PRN Reason Start Time Stop Time Status Last Admin Dose Admin Acetaminophen (TYLenol 325MG TAB) 650 mg Q6H PRN PO MILD PAIN (1-3) 01/09/25 19:30 01/14/25 12:39 DC 01/13/25 20:22 650 MG Acetaminophen (TYLenol 325MG TAB) 650 mg Q6H PRN PO MILD PAIN (1-3) 01/14/25 13:00 02/13/25 12:59 Albuterol (DUOneb) 1 udvial Q6H PRN IH SHORTNESS OF BREATH 01/09/25 19:30 02/08/25 19:29 Amlodipine Besylate (NorvASC 5MG TAB) 5 mg DAILY PO 01/10/25 17:00 02/09/25 16:59 01/13/25 09:57 5 MG Amlodipine Besylate (NorvASC 5MG TAB) 10 mg DAILY PO 01/10/25 09:00 01/10/25 05:49 DC Aspirin (Aspirin 81mg Chew Tab) 81 mg DAILY PO 01/13/25 09:00 02/12/25 08:59 01/13/25 09:57 81 MG Atorvastatin Calcium (LIPItor 40MG) 40 mg HS PO 01/10/25 21:00 02/09/25 20:59 01/13/25 20:20 40 MG Carvedilol (Coreg 3.125MG) 3.125 mg BID PO 01/10/25 09:00 02/09/25 08:59 01/14/25 09:29 3.125 MG Cefazolin Sodium (Ancef) 2 gm Q8H IVPB 01/14/25 20:00 01/15/25 12:01 Clopidogrel Bisulfate (plaVIX 75MG) 75 mg DAILY PO 01/15/25 09:00 02/14/25 08:59 Famotidine (Pepcid 20mg Vial) 20 mg BID IV 01/09/25 21:00 02/08/25 20:59 01/14/25 09:29 20 MG Gabapentin (NEURontin 100 mg CAP) 200 mg BID PO 01/10/25 09:00 02/09/25 08:59 01/13/25 20:21 200 MG Heparin Sodium (Porcine) (HEParin 5,000 UNIT VIAL) *calculation based on ACTUAL B... AD PRN IV HEPARIN PROTOCOL 01/10/25 23:30 01/14/25 12:34 DC 01/10/25 23:06 3,000 UNIT Heparin Sodium (Porcine) (HEParin 5,000 UNIT VIAL) 2,700 unit ONCE IV 01/09/25 20:30 01/09/25 23:59 DC 01/09/25 20:56 2,700 UNIT Heparin Sodium/ Dextrose 250 ml @ 0 mls/hr Q6H IV 01/09/25 20:00 01/14/25 12:34 DC 01/13/25 10:04 10.6 MLS/HR Morphine Sulfate (morPHINE 2MG SYG) 2 mg Q6H PRN IVP SEVERE PAIN (7-10) 01/09/25 19:30 01/14/25 12:34 DC Multivitamins Therapeutic (Multivitamin Tablet) 1 tab DAILY PO 01/10/25 09:00 02/09/25 08:59 01/13/25 09:57 1 TAB Ondansetron HCl (zoFRAN 4MG INJ) 4 mg Q6H PRN IVP NAUSEA/VOMITING 01/09/25 19:30 02/08/25 19:29 Potassium Chloride 100 ml @ 100 mls/hr AD PRN IV POTASSIUM PROTOCOL 01/13/25 19:30 01/14/25 04:57 DC Potassium Chloride 100 ml @ 100 mls/hr AD PRN IV POTASSIUM PROTOCOL 01/14/25 05:00 02/13/25 04:59 Potassium Chloride (K-Dur/Klor-Con 20meq) 20 meq AD PRN PO POTASSIUM PROTOCOL 01/13/25 19:30 02/12/25 19:29 Potassium Chloride (KCl 10% Elixir 20meq/15ml) 20 meq AD PRN PO POTASSIUM PROTOCOL 01/13/25 19:30 02/12/25 19:29 Sodium Chloride 1,000 ml @ 50 mls/hr Q20H IV 01/09/25 19:30 02/08/25 19:29 01/12/25 07:30 50 MLS/HR Tramadol HCl (UltRAM) 25 mg Q6H PRN PO MODERATE PAIN (4-6) 01/14/25 13:00 01/19/25 12:59 Tramadol HCl (UltRAM) 50 mg Q6H PRN PO PAIN LEVEL 7 TO 10 01/14/25 13:00 01/19/25 12:59 DIAGNOSTICS / RADIOLOGY: [ ] ASSESSMENT: Peripheral arterial disease POA Peripheral vascular disease POA S/P peripheral angogram with FILM RENTAL CLERK POA Left proximal popliteal artery occlusion POA Worsening intermittent claudication POA Essential Hypertension POA Hyperlipidemia POA Coronary artery disease POA Hyperglycemia POA Nicotine dependence POA Alcoholism POA Soft tissue swelling PLAN: Peripheral arterial disease, Peripheral vascular disease, S/P peripheral angiogram with FILM RENTAL CLERK , Left proximal popliteal artery occlusion, Worsening intermittent claudication * Cardiovascular surgeon and Cardiology consulted for evaluation for femoral popliteal bypass surgery * On carvedilol 3.125 b.i.d. and gabapentin 200 mg b.i.d., amlodipine 5 mg OD * Heparin was stopped today * Cardiology added aspirin 81 mg today * Echocardiogram shows LVEF of 60-65% * Medical records obtained from [facility] * CT angio showed near-complete occlusive thrombus in the left popliteal artery with distal recanalization, thrombosis of the distal right posterior tibial artery, multilevel severe atherosclerotic disease involving the bilateral iliac, femoral, popliteal, and tibial arterial systems, with the most significant stenoses involving the left popliteal artery, left tibioperoneal trunk , and left anterior tibial artery origin. * Patient had left femoral to posterior tibial bypass surgery on 01/14 * Started on Plavix and cefazolin -Day 1 Hyperlipidemia * Lipid profile showed triglycerides 0 8, total cholesterol 195, LDL 93, and HDL 28. * Patient is continued on atorvastatin 40 mg home medications Soft tissue swelling * Boil in the right shoulder scapula * Soft tissue ultrasound of right shoulder scapula showed possible subcutaneous abscess in the right scapular region * CT scan with contrast of upper extremity showed superficial abscess with surrounding cellulitic change. * General surgery recommended conservative management with warm compresses * Blood cultures showed no growth for24 hours ATTESTATION BY PHYSICIAN I have seen and examined the patient. I reviewed the documentation, medical decision making, and treatment plan as noted by the resident physician above. I agree with the findings and plan of care. MAG RESTREPO MD, SYED M MD Jan 14, 2025 13:38
--- NOTE | 2025-01-14 13:55 | PN ---
[facility] CARDIOLOGY PROGRESS NOTE Date Patient Seen: Jan 14, 2025 Time of Visit: 13:51 Interval History: [No acute events overnight, patient currently NPO, pending fem-pop bypass ] Physical Examination: GENERAL: [No acute distress.] HEAD: [Normal with no signs of head trauma.] EYES: [PERRLA, EOMI, conjunctiva and sclera normal.] ENT: [Hearing grossly intact, normal oropharynx.] NECK: [Supple without JVD. There is no tenderness, lymphadenopathy, or masses. No thyromegaly. Normal carotid upstrokes without bruits.] LUNGS: [Clear breath sounds bilaterally. No wheezes, or rhonchi.] HEART: [Normal rate and rhythm. Normal S1 and S2 without mumurs, gallop or rub.] VASC: [Peripheral pulses +2 bilaterally.] ABD: [Bowel sounds normal, soft, nontender, no masses, no organomegaly. No audible bruits.] : [Not examined] LYMPH: [No lymphadenopathy noted.] EXT: [ Non-edematous and not cyanotic. No clubbing. left foot pale in color ,pedal pulse per doppler .] NEURO: [Awake, alert, and oriented x3. No focal sensory or strength deficits noted.] Laboratory: [ ] Hematology Labs: Test 01/14/25 02:30 01/13/25 03:17 Range/Units White Blood Count 7.1 4.8-10.8 K/uL Red Blood Count 3.80 L 4.50-6.20 MIL/uL Hemoglobin 12.1 L 14.0-18.0 g/dL Hematocrit 35.1 L 42-54 % Mean Corpuscular Volume 92.4 79-99 fL Mean Corpuscular Hemoglobin 31.8 27.0-33.0 pg Mean Corpuscular Hemoglobin Concent 34.5 32.0-36.0 g/dL Red Cell Distribution Width 12.3 11.0-15.5 % Platelet Count 247 130-400 K/uL Mean Platelet Volume 9.8 7.5-10.5 fL Nucleated Red Blood Cells 0.0 0.0-0.19 % Immature Granulocyte % (Auto) 0.3 0-1 % Neutrophils (%) (Auto) 44.5 40.0-77.0 % Lymphocytes (%) (Auto) 44.2 21.0-51.0 % Monocytes (%) (Auto) 7.1 3.0-13.0 % Eosinophils (%) (Auto) 3.0 0.0-8.0 % Basophils (%) (Auto) 0.9 0.0-5.0 % Neutrophils # (Auto) 3.0 1.8-7.7 K/uL Lymphocytes # (Auto) 3.0 1.0-4.8 K/uL Monocytes # (Auto) 0.5 0.1-1.0 K/uL Eosinophils # (Auto) 0.20 0.00-0.70 K/uL Basophils # (Auto) 0.06 0.00-0.20 K/uL Absolute Immature Granulocyte (auto 0.02 0-1 K/uL Chemistry Labs: Test 01/14/25 02:30 01/13/25 11:43 01/13/25 03:17 Range/Units Sodium Level 140 136-145 mmol/L Potassium Level 3.9 3.5-5.1 mmol/L Chloride Level 102 101-111 mmol/L Carbon Dioxide Level 31 21-32 mmol/L Blood Urea Nitrogen 16 7-18 mg/dL Creatinine 1.1 0.5-1.3 mg/dL Glomerular Filtration Rate Calc 78 >90 mL/min Random Glucose 119 H 70-105 mg/dL Total Calcium 8.8 8.5-10.1 mg/dL Whole Blood Glucose 117 H 70-110 MG/DL Total Bilirubin 0.3 # 0.2-1.0 mg/dL Aspartate Amino Transf (AST/SGOT) 21 10-37 U/L Alanine Aminotransferase (ALT/SGPT) 28 # 12-78 U/L Alkaline Phosphatase 77 50-136 U/L Total Protein 6.4 6.0-8.3 g/dL Albumin 3.3 L 3.5-5.0 g/dL Coagulation Labs: Test 01/14/25 02:30 Range/Units Prothrombin Time 10.1 9.6-11.6 SEC Prothromb Time International Ratio 0.95 0.85-1.15 Activated Partial Thromboplast Time 66.6 H 26.3-35.5 SEC Diagnostics / Radiology: [Copy/Paste Echos/Imaging Report here] Impression and Plan: [ 1. Peripheral arterial disease status post mechanical thrombectomy balloon angioplasty of the left popliteal artery and successful angioplasty of the left posterior tibial artery December 30, [address] Nicole Preciado in [place] with documented monophasic waveforms in the mid and distal superficial femoral artery to the dorsalis pedis artery with no appreciable flow in the popliteal artery transferred for evaluation for femoral popliteal bypass 2. Non ST-elevation myocardial infarction two weeks prior to admission with reported nonobstructive coronary artery disease and left heart catheterization at [facility] 3. Hypertension 4. Dyslipidemia 5. Former smoker quit five months ago #PAD This patient had recent hospitalization at [facility] for a non ST- elevation CA about three weeks ago. He underwent left heart catheterization was Dr. Christiansen and was told of no nobstructive coronary artery disease. He was subsequently admitted back to [facility] with severe claudication and underwent percutaneous intervention with . He is found to have occlusion of the posterior tibial artery a few days postpro cedure and was transferred here for evaluation for fem-pop bypass. White count 7.1 hemoglobin 12.5 platelet count [id number]. Potassium 3.7 BUN 16 creatinine 0.9. . CTA aortic runoff study performed here shows near-complete occlusion of the left popliteal artery with distal recanalization. There is thrombus in the right posterior tibial artery. The report describes severe bilateral iliac femoral popliteal and tibial disease most significant in the left popliteal artery. Continue aspirin and heparin protocol. 2D echo showed a preserved systolic function with no wall motion or valvular abnormalities Patient is currently NPO, pending to undergo fem-pop bypass today Thank you for this consult cardiology will continue to follow along postoperativ flaca conteh MD ATTESTATION BY PHYSICIAN I have seen and examined the patient, reviewed the above documentation, participated in medical decision making, made necessary modifications, and agree with the treatment plan as documented by my mid-level provider above. MD TAVIA Elizabeth JAMES R MD Jan 14, 2025 13:54
--- NOTE | 2025-01-14 14:19 | NUR ---
Patient returned from OR.
--- NOTE | 2025-01-14 18:04 | NUR ---
Lt radial arterial line removed as per provider written order. Pressure held, Hemostasis achieved, patient tolerated well, dressing applied.
[2025-01-15] VITALS (9 sets, daily range): BP systolic 96–116; BP diastolic 60–66; PULSE 66–83; RESP 18–20; TEMP 98–98.8; O2SAT 97–98
[2025-01-15 04:14] LABS: NUCLEATED RED BLOOD CELLS 0.0 % (0.0-0.19); PLATELET COUNT (AUTO) 236.0 K/uL (130-400); RED BLOOD CELL COUNT(AUTO) 3.75 MIL/uL (4.50-6.20); RED CELL DISTRIBUTION WIDTH 12.2 % (11.0-15.5); WHITE BLOOD COUNT (AUTO) 10.1 K/uL (4.8-10.8)
[2025-01-15 04:42] LABS: ASPARTATE AMINOTRANSFERASE 15.0 U/L (10-37); CREATININE 1.2 mg/dL (0.5-1.3); GLOMERULAR FILTR. RATE CALC 71.0 mL/min (>90); GLUCOSE,RANDOM 210.0 mg/dL (70-105); SODIUM SERUM 137.0 mmol/L (136-145); TOTAL PROTEIN, SERUM 6.8 g/dL (6.0-8.3); UREA NITROGEN, BLOOD 22.0 mg/dL (7-18)
--- NOTE | 2025-01-15 06:17 | OP ---
DATE OF PROCEDURE: 01/14/2025 PREOPERATIVE DIAGNOSIS: Peripheral vascular disease, nonhealing ulcer, left foot. POSTOPERATIVE DIAGNOSIS: Peripheral vascular disease, nonhealing ulcer, left foot. PROCEDURE PERFORMED: [id number] tibial bypass above the ankle. SURGEON: Vernon Costa MD UPHOLSTERY TECH: Braden Manning. DISPOSITION: Stable. COMPLICATIONS: None. INDICATIONS FOR PROCEDURE: The patient has diffuse infrapopliteal disease with a nonhealing ulcer on the left foot. The patient is referred for surgical revascularization for limb salvage secondary to nonhealing wound. I had the opportunity to review the films and discuss the case with the patient. He understands the indications of the procedure as well as the potential complications of the operation, including but not limited to postoperative bleeding, infection, stroke, renal failure and/or . He understands this as well as the possibility of ultimately losing his limb to peripheral vascular disease and wishes to proceed with surgery. FINDINGS: At the time of surgery, there was infrageniculate disease at the trifurcation and then spotted disease throughout the posterior tibial artery, which opened up nicely on the distal portion of the foot. At the end of the procedure, we had good Doppler pulses. DESCRIPTION OF PROCEDURE: With the patient in the supine position after adequate induction of general endotracheal anesthesia, preoperative intravenous antibiotics, percutaneous arterial and venous lines, surgeon directed timeout utilizing 2 patient identifiers followed by transverse incision on the left groin and exposure of the femoral arterial and venous branches. The infragenicular popliteal artery was exposed in mid leg and placed under vascular control with vessel loops. The great posterior saphenous vein graft was prepared, reversed and tunneled subpectorally. The patient was heparinized with 5000 units and the vascular control of the femoral artery obtained with 2 DeBakey clamps, 4.8-mm puncture and running suture of 5-0 Prolene to construct the proximal anastomosis. The graft was de-aired and anastomosed to the posterior tibial artery at the distal portion of the leg. Excellent flow, hemostasis and closure with 2-0 Vicryl and 3-0 Monocryl. The patient was transferred in stable condition to the recovery room. TID: [id number] RECEIPT: [id number]
--- NOTE | 2025-01-15 10:07 | PN ---
[facility] CARDIOLOGY PROGRESS NOTE Date Patient Seen: Jan 15, 2025 Time of Visit: 10:04 Interval History: [No acute events overnight, he underwent Irrjvdy-[id number]-[id number] tibial bypass above the ankle by Dr Costa , he tolerated the procedure well with no post op complications. Physical Examination: GENERAL: [No acute distress.] HEAD: [Normal with no signs of head trauma.] EYES: [PERRLA, EOMI, conjunctiva and sclera normal.] ENT: [Hearing grossly intact, normal oropharynx.] NECK: [Supple without JVD. There is no tenderness, lymphadenopathy, or masses. No thyromegaly. Normal carotid upstrokes without bruits.] LUNGS: [Clear breath sounds bilaterally. No wheezes, or rhonchi.] HEART: [Normal rate and rhythm. Normal S1 and S2 without mumurs, gallop or rub.] VASC: [Peripheral pulses +2 bilaterally.] ABD: [Bowel sounds normal, soft, nontender, no masses, no organomegaly. No audible bruits.] : [Not examined] LYMPH: [No lymphadenopathy noted.] EXT: [ Non-edematous and not cyanotic. No clubbing. left foot pale in color ,pedal pulse per doppler .] NEURO: [Awake, alert, and oriented x3. No focal sensory or strength deficits noted.] Laboratory: [ ] Hematology Labs: Test 01/15/25 03:47 Range/Units White Blood Count 10.1 4.8-10.8 K/uL Red Blood Count 3.75 L 4.50-6.20 MIL/uL Hemoglobin 11.8 L 14.0-18.0 g/dL Hematocrit 34.8 L 42-54 % Mean Corpuscular Volume 92.8 79-99 fL Mean Corpuscular Hemoglobin 31.5 27.0-33.0 pg Mean Corpuscular Hemoglobin Concent 33.9 32.0-36.0 g/dL Red Cell Distribution Width 12.2 11.0-15.5 % Platelet Count 236 130-400 K/uL Mean Platelet Volume 10.0 7.5-10.5 fL Nucleated Red Blood Cells 0.0 0.0-0.19 % Chemistry Labs: Test 01/15/25 03:47 01/13/25 11:43 Range/Units Sodium Level 137 136-145 mmol/L Potassium Level 3.8 3.5-5.1 mmol/L Chloride Level 100 L 101-111 mmol/L Carbon Dioxide Level 26 21-32 mmol/L Blood Urea Nitrogen 22 H 7-18 mg/dL Creatinine 1.2 0.5-1.3 mg/dL Glomerular Filtration Rate Calc 71 >90 mL/min Random Glucose 210 H 70-105 mg/dL Total Calcium 9.1 8.5-10.1 mg/dL Total Bilirubin 0.2 0.2-1.0 mg/dL Aspartate Amino Transf (AST/SGOT) 15 10-37 U/L Alanine Aminotransferase (ALT/SGPT) 28 12-78 U/L Alkaline Phosphatase 74 50-136 U/L Total Protein 6.8 6.0-8.3 g/dL Albumin 3.5 3.5-5.0 g/dL Whole Blood Glucose 117 H 70-110 MG/DL Coagulation Labs: Test 01/14/25 02:30 Range/Units Prothrombin Time 10.1 9.6-11.6 SEC Prothromb Time International Ratio 0.95 0.85-1.15 Activated Partial Thromboplast Time 66.6 H 26.3-35.5 SEC Diagnostics / Radiology: [Copy/Paste Echos/Imaging Report here] Impression and Plan: [ 1. Peripheral arterial disease status post mechanical thrombectomy balloon angioplasty of the left popliteal artery and successful angioplasty of the left posterior tibial artery December 30, [address] Nicole Preciado in [place] with documented monophasic waveforms in the mid and distal superficial femoral artery to the dorsalis pedis artery with no appreciable flow in the popliteal artery transferred for evaluation for femoral popliteal bypass 2. Non ST-elevation myocardial infarction two weeks prior to admission with reported nonobstructive coronary artery disease and left heart catheterization at [facility] 3. Hypertension 4. Dyslipidemia 5. Former smoker quit five months ago #PAD This patient had recent hospitalization at [facility] for a non ST- elevation IA about three weeks ago. He underwent left heart catheterization was Dr. Christiansen and was told of nonobstructive coronary artery disease. He was subsequently admitted back to [facility] with severe claudication and underwent percutaneous intervention with . He is found to have occlusion of the posterior tibial artery a few days postprocedure and was transferred here for evaluation for fem-pop bypass. White count 7.1 hemoglobin 12.5 platelet count [id number]. Potassium 3.7 BUN 16 creatinine 0.9. . CTA aortic runoff study performed here shows near-complete occlusion of the left popliteal artery with distal recanalization. There is thrombus in the right posterior tibial artery. The report describes severe bilateral iliac femoral popliteal and tibial disease most significant in the left popliteal artery. Continue aspirin and heparin protocol. 2D echo showed a preserved systolic function with no wall motion or valvular abnormalities He underwent Boxhiom-[id number] tibial bypass above the ankle by Dr Costa , he tolerated the procedure well with no post op complications. Once deemed safe by CV surgery we recommend initiating Plavix 75 mg daily Continue PT and OT Thank you for this consult cardiology will continue to follow along postoperatively Gulshan conteh MD ATTESTATION BY PHYSICIAN I have seen and examined the patient, reviewed the above documentation, participated in medical decision making, made necessary modifications, and agree with the treatment plan as documented by my mid-level provider above. MD TAVIA Elizabeth JAMES R MD Jan 15, 2025 10:07
[2025-01-15] MEDS ORDERED: 0.9%NACL 1000ML 500 ML IV SCH (12:00)
--- NOTE | 2025-01-15 12:36 | PN ---
[facility] PROGRESS NOTE Date of Service: Jan 15, 2025 Time of Service: 12:29 SUBJECTIVE: This is a 59-year-old Indonesian-speaking male with past medical history of hypertension and hyperlipidemia was transferred from [facility] possible fem-pop evaluation.As per patient he started having severe left foot pain 5 days ago and went to his PCP where he was advised to go to the ED for a possible DVT.While in [facility] a venous doppler was performed which revealed negative for DVT and an arterial doppler was also done and result showed total occlusion of the arterial ultrasound to the left proximal popliteal colloidal circulation .Reportedly patient developed intermittent claudication of left foot and a cardiology was consulted .Patient underwent an ultrasound guided vascular access of the right common femoral artery angiography in common femoral artery with run off to right foot ,abdominal aortogram with bilateral iliofemoral runoff ,selective left lower extremity angioraphy with femoral artery runoff to the left foot ,intravascular ultrasound to left SFA /popliteal artery mechanical thrombectomy for left popliteal thrombus, percutaneous transluminal angiography to the left popliteal artery with balloon bringing down the stenosis to 10% and [employer] to the left posterior tibial artery with balloon bringing down the stenosis from 70% to less than 10% as per documentation report.Patient was started on heparin and nitroglycerin drip per cardio recommendation to improve the flow.As per documented report ,popliteal artery collapsed again but patient still has a flow in the lower extremity but slow due to his severe microvascular disease in the foot ,hence patient need to be transferred for a thrombectomy versus bypass surgery evaluation. was then consulted prior to the transfer as per report and patient was accepted by Dr.Mamachen Call. Patient reports he smokes 1 pack of cigarette every 2 days x 15 years and drinks 3 beers every weekend. Seen and examined patient in room 210 awake,alert and coherent,denies chest pain ,palpitation,cough,fever and shortness of breath. Latest vital signs temperature 98.1, heart rate 70, blood pressure 149/41 saturation 97% on room air. Patient remain in ICU on nitro and heparin drip. 01/10 The patient is seen and examined in room 210. As the patient is only Indonesian speaking, therefore a nurse was used as a tube machine operator. The patient said that he was feeling. Today. He is continued on the IV heparin therefore the patient is in ICU. Cardiovascular and cardiology consulted. Anterior and posterior pedis pulses were checked by Doppler. Left foot had stronger posterior pedis as compared to anterior pedis pulse and right foot had stronger anterior pedis compared to posterior pedis. As per cardiology the patient had NSTEMI approximately 2 wk ago in 12/2024, and coronary angiogram approximately 2 weeks ago demonstrating nonobstructive CAD, and claudication was sent to [facility] by his PCP for further evaluation of left lower extremity discomfort and discoloration. DVT was reportedly ruled out for the left lower extremity. Left lower extremity arterial ultrasound was reported to have a total occlusion of the left proximal popliteal artery with collateral circulation and distal popliteal reconstitution with monophasic waveforms distally. He underwent a peripheral angiogram of the left lower extremity on 12/30/[address] Nicole Preciado, s/p successful mechanical thrombectomy followed by balloon angioplasty of the left popliteal artery and successful [employer] to the left posterior tibial artery. Repeat left lower extremity arterial Doppler on 01/08/2025 revealed monophasic waveforms from the mid and distal superficial femoral artery to the dorsalis pedis artery, no appreciable flow within the popliteal artery consistent with complete occlusion. The patient was transferred to [facility] for evaluation by CV surgery for a fem-pop. Cardiology recommend to keep DAPT on hold and continue heparin infusion. They also ordered to obtain coronary angiogram, echocardiogram, and cardiology notes from MRMS. Cardiovascular surgery ordered CT angio abdominal aorta. 01/11/2025: Patient is seen in the room 224. CT angio showed near-complete occlusive thrombus in the left popliteal artery with distal recanalization, thrombosis of the distal right posterior tibial artery, multilevel severe atherosclerotic disease involving the bilateral iliac, femoral, popliteal, and tibial arterial systems, with the most significant stenoses involving the left popliteal artery, left tibioperoneal trunk , and left anterior tibial artery origin. Cardiovascular surgeon advised that the patient will need a left femoral to posterior tibial bypass to bypass is occluded popliteal artery. Examined soft tissue boil on the right shoulder scapula. 01/12 The patient was seen and examined in room 224. As the patient is Indonesian speaking only, a nurse was used as a tube machine operator converse with the patient. Soft tissue ultrasound showed possible subcutaneous abscess in the right scapular region therefore CT scan with contrast of upper extremity was ordered. Cardiology saw the patient today and recommended to start the patient on aspirin 81 mg, echo and placed another order for left heart catheterization report from admission. As per cardiovascular surgeon the patient is planned for a left femoral artery to posterior tibial artery bypass. Cardiology ordered echo that showed LVEF of 60-65% and added aspirin 81 mg. 01/13 The patient was seen and examined in room 224. As the patient is Indonesian- speaking only, a nurse was used as a tube machine operator to converse with the patient. As per cardiovascular surgeon the patient is planned for a left femoral artery to posterior tibial artery bypass. CT scan with contrast of upper extremity showed superficial abscess with surrounding cellulitic change therefore General surgery consult is placed and blood cultures were ordered. Medical records were obtained from [facility] today 01/14 The patient was NPO and planned for left femoral to posterior tibial bypass with CryoVein surgery today which was done successfully. After surgery the patient was started on clopidogrel, cefazolin, tramadol and acetaminophen for pain. He was also started on heart healthy diet. General surgery saw the patient and ordered conservative management with warm compressions. Patient's blood culture showed no growth for 24 hours 01/15 The patient was seen and examined in room 2. The patient was s/p left femoral to posterior tibial bypass day 1. The patient stated he was feeling well. As per Cardiology the procedure went well with no complications. The patient's creatinine increased to 1.2 today indicating acute kidney injury therefore the patient was started on 500 mL IV bolus normal saline followed by 500 mL IV normal saline at 100 mL/hour maintenance. Patient's blood culture showed no growth after 48 hours. The patient was started on Plavix yesterday and antibi otic cefazolin was stopped today REVIEW OF SYSTEMS CONSTITUTIONAL: Denies fevers, chills, or night sweats. No unintentional weight loss reported. NEUROLOGICAL: Denies headache, amaurosis fugax, motor weakness, sensory deficit, vertigo/spinning sensation, gait abnormalities, or tremors. ENT: No hearing loss, otalgia, otorrhea, rhinitis, rhinorrhea, hoarseness, or sore throat. CARDIOVASCULAR: Denies any exertional angina, dyspnea on exertion, orthopnea, paroxysmal nocturnal dyspnea, palpitations, life-threatening arrhythmias, claudication. PULMONARY: Denies any shortness of breath, cough, phlegm/sputum, hemoptysis, pleuritic chest pain. SLEEP: Denies morning headaches, daytime somnolence or napping. Denies diffic ulty falling asleep, staying asleep, waking from sleep. Denies knowledge of snoring. GASTROINTESTINAL: Denies any type of dysphagia to either liquids or solids. Denies nausea, vomiting, pyrosis, early satiety, abdominal pain, diarrhea, constipation, or changes in stool consistency or caliber. Denies coffee-ground emesis, hematemesis, hematochezia, or melanotic stools. GENITOURINARY: Denies frequency, urgency, nocturia, hematuria or incontinence (Storage/Irritative symptoms.) Low urinary stream, straining to void, urinary intermittency or hesitancy, splitting of the voiding stream, terminal dribbling. ENDOCRINOLOGIC: Denies polyuria, polydipsia, polyphagia or heat/cold into lerances. PHYSICAL EXAM GENERAL APPEARANCE: The patient is awake, alert, and oriented, in no acute cardiopulmonary distress. Boil on the right upper lateral back NEUROLOGICAL: Cranial nerves II-XII grossly intact. Motor is 5/5 in bilateral upper and lower extremities proximal to distal. No sensory deficits. HEENT: Face is symmetric. Pupils are equal and reactive. Extraocular movements are intact. NECK: Supple. No JVD. No thyromegaly. No submental, submandibular, pre- /postauricular, occipital or supraclavicular lymphadenopathy. CHEST: Normal chest expansion. No Telemetry. LUNGS: Absence of any rales, rhonchi or any wheezing. CARDIOVASCULAR: Regular. S1 and S2 normal. No appreciable rubs, murmurs or ga llops. ABDOMEN: Soft, nontender, and nondistended. There is no rebound, voluntary guarding, or rigidity. : Deferred. No Swenson. EXTREMITIES: Non-edematous and not cyanotic. Left foot: Stronger posterior pedis as compared to anterior pedis. Right foot: Stronger anterior pedis compared to posterior pedis SKIN: No skin breakdown. Vital Signs (last 8hr) Date Time Temp Pulse Resp B/P (MAP) Pulse Ox O2 Delivery O2 Flow Rate FiO2 01/15/25 08:53 120/62 01/15/25 07:00 98 Room Air* 0 21 01/15/25 07:00 98.4 70 20 99/65 96 Room Air 01/15/25 06:15 18 N/A Room Air 21 LABS: Laboratory: Test 01/15/25 03:47 01/14/25 02:30 Range/Units White Blood Count 10.1 4.8-10.8 K/uL Red Blood Count 3.75 L 4.50-6.20 MIL/uL Hemoglobin 11.8 L 14.0-18.0 g/dL Hematocrit 34.8 L 42-54 % Mean Corpuscular Volume 92.8 79-99 fL Mean Corpuscular Hemoglobin 31.5 27.0-33.0 pg Mean Corpuscular Hemoglobin Concent 33.9 32.0-36.0 g/dL Red Cell Distribution Width 12.2 11.0-15.5 % Platelet Count 236 130-400 K/uL Mean Platelet Volume 10.0 7.5-10.5 fL Nucleated Red Blood Cells 0.0 0.0-0.19 % Sodium Level 137 136-145 mmol/L Potassium Level 3.8 3.5-5.1 mmol/L Chloride Level 100 L 101-111 mmol/L Carbon Dioxide Level 26 21-32 mmol/L Blood Urea Nitrogen 22 H 7-18 mg/dL Creatinine 1.2 0.5-1.3 mg/dL Glomerular Filtration Rate Calc 71 >90 mL/min Random Glucose 210 H 70-105 mg/dL Total Calcium 9.1 8.5-10.1 mg/dL Total Bilirubin 0.2 0.2-1.0 mg/dL Aspartate Amino Transf (AST/SGOT) 15 10-37 U/L Alanine Aminotransferase (ALT/SGPT) 28 12-78 U/L Alkaline Phosphatase 74 50-136 U/L Total Protein 6.8 6.0-8.3 g/dL Albumin 3.5 3.5-5.0 g/dL Prothrombin Time 10.1 9.6-11.6 SEC Prothromb Time International Ratio 0.95 0.85-1.15 Activated Partial Thromboplast Time 66.6 H 26.3-35.5 SEC Current Medications Medications (Trade) Dose Ordered Sig/Zac Route PRN Reason Start Time Stop Time Status Last Admin Dose Admin Acetaminophen (TYLenol 325MG TAB) 650 mg Q6H PRN PO MILD PAIN (1-3) 01/09/25 19:30 01/14/25 12:39 DC 01/13/25 20:22 650 MG Acetaminophen (TYLenol 325MG TAB) 650 mg Q6H PRN PO MILD PAIN (1-3) 01/14/25 13:00 02/13/25 12:59 Albuterol (DUOneb) 1 udvial Q6H PRN IH SHORTNESS OF BREATH 01/09/25 19:30 02/08/25 19:29 Amlodipine Besylate (NorvASC 5MG TAB) 5 mg DAILY PO 01/10/25 17:00 02/09/25 16:59 01/15/25 08:53 5 MG Amlodipine Besylate (NorvASC 5MG TAB) 10 mg DAILY PO 01/10/25 09:00 01/10/25 05:49 DC Aspirin (Aspirin 81mg Chew Tab) 81 mg DAILY PO 01/13/25 09:00 02/12/25 08:59 01/15/25 08:53 81 MG Atorvastatin Calcium (LIPItor 40MG) 40 mg HS PO 01/10/25 21:00 02/09/25 20:59 01/14/25 21:53 40 MG Carvedilol (Coreg 3.125MG) 3.125 mg BID PO 01/10/25 09:00 02/09/25 08:59 01/15/25 08:53 3.125 MG Cefazolin Sodium (Ancef) 2 gm Q8H IVPB 01/14/25 20:00 01/15/25 12:01 DC 01/15/25 03:55 2 GM Clopidogrel Bisulfate (plaVIX 75MG) 75 mg DAILY PO 01/15/25 09:00 02/14/25 08:59 01/15/25 08:53 75 MG Famotidine (Pepcid 20mg Vial) 20 mg BID IV 01/09/25 21:00 02/08/25 20:59 01/15/25 08:52 20 MG Gabapentin (NEURontin 100 mg CAP) 200 mg BID PO 01/10/25 09:00 02/09/25 08:59 01/15/25 08:54 200 MG Heparin Sodium (Porcine) (HEParin 5,000 UNIT VIAL) *calculation based on ACTUAL B... AD PRN IV HEPARIN PROTOCOL 01/10/25 23:30 01/14/25 12:34 DC 01/10/25 23:06 3,000 UNIT Heparin Sodium (Porcine) (HEParin 5,000 UNIT VIAL) 2,700 unit ONCE IV 01/09/25 20:30 01/09/25 23:59 DC 01/09/25 20:56 2,700 UNIT Heparin Sodium/ Dextrose 250 ml @ 0 mls/hr Q6H IV 01/09/25 20:00 01/14/25 12:34 DC 01/13/25 10:04 10.6 MLS/HR Morphine Sulfate (morPHINE 2MG SYG) 2 mg Q6H PRN IVP SEVERE PAIN (7-10) 01/09/25 19:30 01/14/25 12:34 DC Multivitamins Therapeutic (Multivitamin Tablet) 1 tab DAILY PO 01/10/25 09:00 02/09/25 08:59 01/15/25 08:53 1 TAB Ondansetron HCl (zoFRAN 4MG INJ) 4 mg Q6H PRN IVP NAUSEA/VOMITING 01/09/25 19:30 02/08/25 19:29 Potassium Chloride 100 ml @ 100 mls/hr AD PRN IV POTASSIUM PROTOCOL 01/13/25 19:30 01/14/25 04:57 DC Potassium Chloride 100 ml @ 100 mls/hr AD PRN IV POTASSIUM PROTOCOL 01/14/25 05:00 02/13/25 04:59 Potassium Chloride (K-Dur/Klor-Con 20meq) 20 meq AD PRN PO POTASSIUM PROTOCOL 01/13/25 19:30 02/12/25 19:29 Potassium Chloride (KCl 10% Elixir 20meq/15ml) 20 meq AD PRN PO POTASSIUM PROTOCOL 01/13/25 19:30 02/12/25 19:29 Sodium Chloride 500 ml @ 100 mls/hr Q5H IV 01/15/25 12:00 02/14/25 11:59 Sodium Chloride 1,000 ml @ 50 mls/hr Q20H IV 01/09/25 19:30 02/08/25 19:29 01/12/25 07:30 50 MLS/HR Tramadol HCl (UltRAM) 25 mg Q6H PRN PO MODERATE PAIN (4-6) 01/14/25 13:00 01/19/25 12:59 Tramadol HCl (UltRAM) 50 mg Q6H PRN PO PAIN LEVEL 7 TO 10 01/14/25 13:00 01/19/25 12:59 01/14/25 16:20 50 MG DIAGNOSTICS / RADIOLOGY: [ ] ASSESSMENT: Peripheral arterial disease POA Peripheral vascular disease POA S/P peripheral angogram with [employer]BER POA Left proximal popliteal artery occlusion POA Worsening intermittent claudication POA Essential Hypertension POA Hyperlipidemia POA Coronary artery disease POA Hyperglycemia POA Nicotine dependence POA Alcoholism POA Soft tissue swelling PLAN: Peripheral arterial disease, Peripheral vascular disease, S/P peripheral angiogram with FR[employer]BER , Left proximal popliteal artery occlusion, Worsening intermittent claudication * Cardiovascular surgeon and Cardiology consulted for evaluation for femoral popliteal bypass surgery * On carvedilol 3.125 b.i.d. and gabapentin 200 mg b.i.d., amlodipine 5 mg OD * Heparin was stopped today * Cardiology added aspirin 81 mg today * Echocardiogram shows LVEF of 60-65% * Medical records obtained from [facility] * CT angio showed near-complete occlusive thrombus in the left popliteal artery with distal recanalization, thrombosis of the distal right posterior tibial artery, multilevel severe atherosclerotic disease involving the bilateral iliac, femoral, popliteal, and tibial arterial systems, with the most significant stenoses involving the left popliteal artery, left tibioperoneal trunk , and left anterior tibial artery origin. * Patient had left femoral to posterior tibial bypass surgery on 01/14 * Started on Plavix * Discontinued \Cefazolin -Day 1 (01/15) Hyperlipidemia * Lipid profile showed triglycerides 0 8, total cholesterol 195, LDL 93, and HDL 28. * Patient is continued on atorvastatin 40 mg home medications Soft tissue swelling * Boil in the right shoulder scapula * Soft tissue ultrasound of right shoulder scapula showed possible subcutaneous abscess in the right scapular region * CT scan with contrast of upper extremity showed superficial abscess with surrounding cellulitic change. * General surgery recommended conservative management with warm compresses * Blood cultures showed no growth for 48 hours Acute kidney injury * Patient's creatinine increased by 0.3 ( 0.9 to 1.2) * Started on 500 mL IV normal saline bolus followed by 500 mL IV normal saline at 100 mL/hour * Monitor creatinine ATTESTATION BY PHYSICIAN I have seen and examined the patient. I reviewed the documentation, medical decision making, and treatment plan as noted by the resident physician above. I agree with the findings and plan of care. MAG RESTREPO MD, SYED M MD Jan 15, 2025 12:36
[2025-01-15] MEDS: 0.9% NACL 500ML IV.SOLN 500 ML IV ONE ×2 (13:14→13:56)
--- NOTE | 2025-01-15 15:57 | PN ---
This is a 59-year-old male with concerns for scapular abscess Interval history: This 69-year-old male seen in his room resting Attempt to see patient yesterday unsuccessful as patient was undergoing surgical procedure Patient is postop day one for left femoral posterior tibial bypass No significant worsening of concerning since scapular site No induration or erythema noted Physical exam General: Awake alert and oriented Heart: Regular rate and rhythm} Lungs: Clear to auscultation no distress Abdomen: [Soft, nontender, nondistended Assessment : This is a 59-year-old male with concerns of scapular abscess Plan: From surgical standpoint we will continue with conservative management of warm compresses No surgical intervention at this time Continue to monitor patient closely Patient to be re-evaluated by surgery tomorrow Nursing report any further acute events Surgical case has been discussed with my supervising physician in the above plan was formulated and agreed upon We appreciate the hospitalist team for us to participate in patient's care. Greater than 45 minutes of time spent patient, reviewing chart, working on documentation Vitals/Labs Vital Signs Date Time Temp Pulse Resp B/P (MAP) Pulse Ox O2 Delivery O2 Flow Rate FiO2 01/15/25 11:00 98.1 66 20 116/66 96 Room Air 01/15/25 07:00 0 21 Laboratory Tests 01/15/25 03:47 Medications Current Medications Acetaminophen 650 mg Q6H PRN PO Last administered on 01/13/25at 20:22; Start 01/09/25 at 19:30; Stop 01/14/25 at 12:39; Status DC Ondansetron HCl 4 mg Q6H PRN IVP; Start 01/09/25 at 19:30; Stop 02/08/25 at 19:29 Sodium Chloride 1,000 ml @ 50 mls/hr Q20H IV Last administered on 01/12/25at 07:30; Start 01/09/25 at 19:30; Stop 02/08/25 at 19:29 Albuterol 1 udvial Q6H PRN IH; Start 01/09/25 at 19:30; Stop 02/08/25 at 19:29 Morphine Sulfate 2 mg Q6H PRN IVP; Start 01/09/25 at 19:30; Stop 01/14/25 at 12:34; Status DC Heparin Sodium/ Dextrose 250 ml @ 0 mls/hr Q6H IV Last administered on 01/13/25at 10:04; Start 01/09/25 at 20:00; Stop 01/14/25 at 12:34; Status DC Famotidine 20 mg BID IV Last administered on 01/15/25at 08:52; Start 01/09/25 at 21:00; Stop 02/08/25 at 20:59 Multivitamins Therapeutic 1 tab DAILY PO Last administered on 01/15/25at 08:53; Start 01/10/25 at 09:00; Stop 02/09/25 at 08:59 Heparin Sodium (Porcine) 2,700 unit ONCE IV Last administered on 01/09/25at 20:56; Start 01/09/25 at 20:30; Stop 01/09/25 at 23:59; Status DC Atorvastatin Calcium 40 mg HS PO Last administered on 01/14/25at 21:53; Start 01/10/25 at 21:00; Stop 02/09/25 at 20:59 Carvedilol 3.125 mg BID PO Last administered on 01/15/25at 08:53; Start 01/10/25 at 09:00; Stop 02/09/25 at 08:59 Gabapentin 200 mg BID PO Last administered on 01/15/25at 08:54; Start 01/10/25 at 09:00; Stop 02/09/25 at 08:59 Amlodipine Besylate 10 mg DAILY PO; Start 01/10/25 at 09:00; Stop 01/10/25 at 05:49; Status DC Amlodipine Besylate 5 mg DAILY PO Last administered on 01/15/25at 08:53; Start 01/10/25 at 17:00; Stop 02/09/25 at 16:59 Iohexol 75 ml STK-MED ONCE IV; Start 01/10/25 at 18:14; Stop 01/10/25 at 18:14; Status DC Iohexol 50 ml STK-MED ONCE IV; Start 01/10/25 at 18:14; Stop 01/10/25 at 18:14; Status DC Heparin Sodium (Porcine) *calculation based on ACTUAL B... AD PRN IV Last administered on 01/10/25at 23:06; Start 01/10/25 at 23:30; Stop 01/14/25 at 12:34; Status DC Aspirin 81 mg DAILY PO Last administered on 01/15/25at 08:53; Start 01/13/25 at 09:00; Stop 02/12/25 at 08:59 Iohexol 75 ml STK-MED ONCE IV; Start 01/12/25 at 11:33; Stop 01/12/25 at 11:34; Status DC Potassium Chloride 100 ml @ 100 mls/hr AD PRN IV; Start 01/13/25 at 19:30; Stop 01/14/25 at 04:57; Status DC Potassium Chloride 20 meq AD PRN PO; Start 01/13/25 at 19:30; Stop 02/12/25 at 19:29 Potassium Chloride 20 meq AD PRN PO; Start 01/13/25 at 19:30; Stop 02/12/25 at 19:29 Potassium Chloride 100 ml @ 100 mls/hr AD PRN IV; Start 01/14/25 at 05:00; Stop 02/13/25 at 04:59 Dexamethasone Sodium Phosphate 10 mg STK-MED ONCE .ROUTE; Start 01/14/25 at 10:57; Stop 01/14/25 at 10:58; Status DC Ondansetron HCl 4 mg STK-MED ONCE .ROUTE; Start 01/14/25 at 10:57; Stop 01/14/25 at 10:58; Status DC Lidocaine HCl 100 mg STK-MED ONCE .ROUTE; Start 01/14/25 at 10:57; Stop 01/14/25 at 10:58; Status DC Succinylcholine Chloride 200 mg STK-MED ONCE .ROUTE; Start 01/14/25 at 10:58; Stop 01/14/25 at 10:58; Status DC Glycopyrrolate 1 mg STK-MED ONCE .ROUTE; Start 01/14/25 at 10:58; Stop 01/14/25 at 10:58; Status DC Fentanyl Citrate 100 mcg STK-MED ONCE .ROUTE; Start 01/14/25 at 10:58; Stop 01/14/25 at 10:58; Status DC Propofol 200 mg STK-MED ONCE IV; Start 01/14/25 at 10:58; Stop 01/14/25 at 10:58; Status DC Neostigmine Methylsulfate 10 mg STK-MED ONCE IV; Start 01/14/25 at 10:58; Stop 01/14/25 at 10:58; Status DC Rocuronium [place] 50 mg STK-MED ONCE .ROUTE; Start 01/14/25 at 10:58; Stop 01/14/25 at 10:59; Status DC Ketamine HCl 50 mg STK-MED ONCE .ROUTE; Start 01/14/25 at 10:59; Stop 01/14/25 at 10:59; Status DC Midazolam HCl 2 mg STK-MED ONCE .ROUTE; Start 01/14/25 at 11:00; Stop 01/14/25 at 11:00; Status DC Cefazolin Sodium 2 gm STK-MED ONCE .ROUTE Last administered on 01/14/25at 11:30; Start 01/14/25 at 11:06; Stop 01/14/25 at 11:07; Status DC Cefazolin Sodium 1 gm STK-MED ONCE .ROUTE Last administered on 01/14/25at 11:57; Start 01/14/25 at 11:26; Stop 01/14/25 at 11:26; Status DC Heparin Sodium/ Sodium Chloride 500 ml @ As Directed STK-MED ONCE IV; Start 01/14/25 at 11:26; Stop 01/14/25 at 11:27; Status DC Acetaminophen 100 ml @ As Directed STK-MED ONCE .ROUTE; Start 01/14/25 at 11:50; Stop 01/14/25 at 11:51; Status DC Famotidine 20 mg STK-MED ONCE IV; Start 01/14/25 at 11:51; Stop 01/14/25 at 11:51; Status DC Fentanyl Citrate 100 mcg STK-MED ONCE .ROUTE; Start 01/14/25 at 12:26; Stop 01/14/25 at 12:27; Status DC Clopidogrel Bisulfate 75 mg DAILY PO Last administered on 01/15/25at 08:53; Start 01/15/25 at 09:00; Stop 02/14/25 at 08:59 Acetaminophen 650 mg Q6H PRN PO; Start 01/14/25 at 13:00; Stop 02/13/25 at 12:59 Tramadol HCl 25 mg Q6H PRN PO; Start 01/14/25 at 13:00; Stop 01/19/25 at 12:59 Tramadol HCl 50 mg Q6H PRN PO Last administered on 01/14/25at 16:20; Start 01/14/25 at 13:00; Stop 01/19/25 at 12:59 Cefazolin Sodium 2 gm Q8H IVPB Last administered on 01/15/25at 13:55; Start 01/14/25 at 20:00; Stop 01/15/25 at 12:01; Status DC Sodium Chloride 500 ml @ 0 mls/hr ONCE ONCE IV Last administered on 01/15/25at 13:14; Start 01/15/25 at 11:30; Stop 01/15/25 at 11:31; Status DC Sodium Chloride 500 ml @ 100 mls/hr Q5H IV; Start 01/15/25 at 12:00; Stop 01/15/25 at 13:04; Status DC Sodium Chloride 500 ml @ 100 mls/hr Q5H ONCE IV Last administered on 01/15/25at 13:56; Start 01/15/25 at 13:30; Stop 01/15/25 at 18:29 Cefazolin Sodium 2 gm Q8H IVPB Last administered on 01/15/25at 13:56; Start 01/15/25 at 13:30; Stop 01/15/25 at 13:31; Status DC Phenol 1 SPRAY Q4H PRN PO; Start 01/15/25 at 14:00; Stop 02/14/25 at 13:59 RONI BUCHANAN Jr. PAC Jan 15, 2025 15:57
[2025-01-15] MEDS: PHENOL 177 ML BOTTLE PO PRN (16:00)
[2025-01-16 04:07] LABS: NUCLEATED RED BLOOD CELLS 0.0 % (0.0-0.19); PLATELET COUNT (AUTO) 238.0 K/uL (130-400); RED BLOOD CELL COUNT(AUTO) 3.49 MIL/uL (4.50-6.20); RED CELL DISTRIBUTION WIDTH 12.6 % (11.0-15.5); WHITE BLOOD COUNT (AUTO) 9.9 K/uL (4.8-10.8)
[2025-01-16 04:20] VITALS: BP 106/59; PULSE 60; RESP 18; TEMP 97.9
[2025-01-16 04:26] LABS: ASPARTATE AMINOTRANSFERASE 24.0 U/L (10-37); CREATININE 1.1 mg/dL (0.5-1.3); GLOMERULAR FILTR. RATE CALC 78.0 mL/min (>90); GLUCOSE,RANDOM 103.0 mg/dL (70-105); SODIUM SERUM 139.0 mmol/L (136-145); TOTAL PROTEIN, SERUM 6.2 g/dL (6.0-8.3); UREA NITROGEN, BLOOD 20.0 mg/dL (7-18)
--- NOTE | 2025-01-16 07:16 | CCATH ---
SUBJECTIVE: Status post fem to posterior tibial bypass. Coursing postoperative day #1. OBJECTIVE: GENERAL: Awake, alert, in no acute distress. VITAL SIGNS: Stable as recorded in the medical record. EXTREMITIES: Warm and well perfused. Pulses present by Doppler. ASSESSMENT: Coursing postoperative day #1. PLAN: 1. Vascular -- aspirin 81 mg, Plavix 75 mg. 2. DVT prophylaxis -- Lovenox 30 mg once a day. 3. Dyslipidemia -- Lipitor 40 mg once a day. 4. Nonhealing wound. Continue IV antibiotics. Continue wound care. 5. Discharge, follow up as an outpatient. TID: [id number] RECEIPT: [id number]
[2025-01-16 07:38] VITALS: PULSE 61; RESP 18; O2SAT 97
[2025-01-16 07:52] VITALS: BP 97/59; PULSE 65; RESP 16; TEMP 98.1
[2025-01-16 08:00] VITALS: O2SAT 97
[2025-01-16] MEDS ORDERED: ATOR40TA69 PO (10:35)
[2025-01-16] MEDS ORDERED: ASPI-1197 PO (10:35)
[2025-01-16] MEDS ORDERED: CLOP-31 PO (10:35)
[2025-01-16 12:36] VITALS: BP 120/75; PULSE 74; RESP 16; TEMP 98.1
--- NOTE | 2025-01-16 13:25 | NUR ---
DISCHARGE INSTRUCTIONS WERE GIVEN TO THIS PATIENT AND SPOUSE AT BEDSIDE. ALL BELONGINGS WERE ACCOUNTED FOR. TELE PACK WAS REMOVED AND RETURNED. PIV TO LEFT HAND WAS REMOVED WITH CATHETER IN TACT. DRY DRESSING APPLIED. EDUCATION PROVIDED ON NEW MEDICATIONS. PATIENT WAS TAKEN DOWN TO PRIVATE VEHICLE VIA WHEELCHAIR
--- NOTE | 2025-01-16 14:46 | PN ---
[facility] CARDIOLOGY PROGRESS NOTE Date Patient Seen: Jan 16, 2025 Time of Visit: 14:45 Interval History: [No acute events overnight, patient denies any cardiac symptoms anginal equivalents, day two status post post fem /pop bypass Physical Examination: GENERAL: [No acute distress.] HEAD: [Normal with no signs of head trauma.] EYES: [PERRLA, EOMI, conjunctiva and sclera normal.] ENT: [Hearing grossly intact, normal oropharynx.] NECK: [Supple without JVD. There is no tenderness, lymphadenopathy, or masses. No thyromegaly. Normal carotid upstrokes without bruits.] LUNGS: [Clear breath sounds bilaterally. No wheezes, or rhonchi.] HEART: [Normal rate and rhythm. Normal S1 and S2 without mumurs, gallop or rub.] VASC: [Peripheral pulses +2 bilaterally.] ABD: [Bowel sounds normal, soft, nontender, no masses, no organomegaly. No audible bruits.] : [Not examined] LYMPH: [No lymphadenopathy noted.] EXT: [ Non-edematous and not cyanotic. No clubbing. left foot pale in color ,pedal pulse per doppler .] NEURO: [Awake, alert, and oriented x3. No focal sensory or strength deficits noted.] Laboratory: [ ] Hematology Labs: Test 01/16/25 03:09 Range/Units White Blood Count 9.9 4.8-10.8 K/uL Red Blood Count 3.49 L 4.50-6.20 MIL/uL Hemoglobin 11.2 L 14.0-18.0 g/dL Hematocrit 32.9 L 42-54 % Mean Corpuscular Volume 94.3 79-99 fL Mean Corpuscular Hemoglobin 32.1 27.0-33.0 pg Mean Corpuscular Hemoglobin Concent 34.0 32.0-36.0 g/dL Red Cell Distribution Width 12.6 11.0-15.5 % Platelet Count 238 130-400 K/uL Mean Platelet Volume 10.3 7.5-10.5 fL Nucleated Red Blood Cells 0.0 0.0-0.19 % Chemistry Labs: Test 01/16/25 03:09 Range/Units Sodium Level 139 136-145 mmol/L Potassium Level 4.0 3.5-5.1 mmol/L Chloride Level 104 101-111 mmol/L Carbon Dioxide Level 29 21-32 mmol/L Blood Urea Nitrogen 20 H 7-18 mg/dL Creatinine 1.1 0.5-1.3 mg/dL Glomerular Filtration Rate Calc 78 >90 mL/min Random Glucose 103 # 70-105 mg/dL Total Calcium 8.5 8.5-10.1 mg/dL Total Bilirubin 0.3 # 0.2-1.0 mg/dL Aspartate Amino Transf (AST/SGOT) 24 10-37 U/L Alanine Aminotransferase (ALT/SGPT) 30 12-78 U/L Alkaline Phosphatase 63 50-136 U/L Total Protein 6.2 6.0-8.3 g/dL Albumin 3.3 L 3.5-5.0 g/dL Diagnostics / Radiology: [Copy/Paste Echos/Imaging Report here] Impression and Plan: [ 1. Peripheral arterial disease status post mechanical thrombectomy balloon angioplasty of the left popliteal artery and successful angioplasty of the left posterior tibial artery December 30, [address] Nicole Preciado in [place] with documented monophasic waveforms in the mid and distal superficial femoral artery to the dorsalis pedis artery with no appreciable flow in the popliteal artery transferred for evaluation for femoral popliteal bypass 2. Non ST-elevation myocardial infarction two weeks prior to admission with reported nonobstructive coronary artery disease and left heart catheterization at [facility] 3. Hypertension 4. Dyslipidemia 5. Former smoker quit five months ago #PAD This patient had recent hospitalization at [facility] for a non ST- elevation IA about three weeks ago. He underwent left heart catheterization was Dr. Christiansen and was told of nonobstructive coronary artery disease. He was subsequently admitted back to [facility] with severe claudication and underwent percutaneous intervention with . He is found to have occlusion of the posterior tibial artery a few days postprocedure and was transferred here for evaluation for fem-pop bypass. White count 7.1 hemoglobin 12.5 platelet count [id number]. Potassium 3.7 BUN 16 creatinine 0.9. . CTA aortic runoff study performed here shows near-complete occlusion of the left popliteal artery with distal recanalization. There is thrombus in the right posterior tibial artery. The report describes severe bilateral iliac femoral popliteal and tibial disease most significant in the left popliteal artery. Continue aspirin and heparin protocol. 2D echo showed a preserved systolic function with no wall motion or valvular abnormalities He underwent [id number] tibial bypass above the ankle by Dr Costa , he tolerated the procedure well with no post op complications. Once deemed safe by CV surgery we recommend initiating Plavix 75 mg daily Continue PT and OT Thank you for this consult cardiology will sign off at this time the patient will follow up with clinic 1-2 weeks after discharge Gulshan conteh MD ATTESTATION BY PHYSICIAN I have seen and examined the patient, reviewed the above documentation, participated in medical decision making, made necessary modifications, and agree with the treatment plan as documented by my mid-level provider above. MD TAVIA Elizabeth JAMES R MD Jan 16, 2025 14:46
--- NOTE | 2025-01-16 14:50 | DS ---
Discharge Summary Hospital Course Summary: This is a 59-year-old Danish-speaking male with past medical history of hypertension and hyperlipidemia was transferred from [facility] possible fem-pop evaluation. The patient had NSTEMI approximately in 12/2024, and coronary angiogram demonstrating nonobstructive CAD, and claudicati on. He was sent to [facility] by his PCP for further evaluation of left lower extremity discomfort and discoloration. DVT was reportedly ruled out for the left lower extremity. Left lower extremity arterial ultrasound was reported to have a total occlusion of the left proximal popliteal artery with collateral circulation and distal popliteal reconstitution with monophasic waveforms distally. He underwent a peripheral angiogram of the left lower extremity on 12/30/[address] Nicole Preciado, s/p successful mechanical thrombectomy followed by balloon angioplasty of the left popliteal artery and successful MOLD RUNNER to the left posterior tibial artery. Repeat left lower extremity arterial Doppler on 01/08/2025 revealed monophasic waveforms fr om the mid and distal superficial femoral artery to the dorsalis pedis artery, no appreciable flow within the popliteal artery consistent with complete occlusion. The patient was [place] [facility] [place] surgery for a fem-pop. During the hospital admission, the patient was started on heparin drip and Cardiology and Cardiovascular surgery was consulted. The patient also started on carvedilol 3.125 b.i.d., gabapentin 200 mg b.i.d., amlodipine 5 mg OD and 40 mg as per home medication. CT Angiography was done that showed near-complete occlusive thrombus in the left popliteal artery with distal recanalization, thrombosis of the distal right posterior tibial artery, multilevel severe atherosclerotic disease involving the bilateral iliac, femoral, popliteal, and tibial arterial systems, with the most significant stenoses involving the left popliteal artery, left tibioperoneal trunk , and left anterior tibial artery origin. Therefore, the patient was planned for a left femoral to posterior tibial bypass surgery. Meanwhile formerly [facility] was contacted multiple times to get patient's records and finally the nurse received them. The surgery was performed successfully on 01/14 after which heparin was stopped and the patient was started on Plavix and, on cefazolin for 1 day. During your hospital admission the patient developed a bowl on the right shoulder scapula for which a soft tissue ultrasound was done that showed possible subcutaneous abscess in the right scapular region. Due to the soft tissue ultrasound finding a CT scan with contrast was performed that showed social abscess with surrounding cellulitic change. General surgery was consulted and they recommended conservative management with the warm compresses. Blood culture was also sent that showed no growth. The patient also developed acute kidney injury during hospital admission, with increasing creatinine from 0.9 to 1.2 therefore the patient was started on 500 mL IV normal saline bolus followed by 500 mL IV normal saline maintenance and creatinine decreased to 1.1 today. After cardiovascular consult, the patient was discharged today with Plavix, and aspirin. Patient's home medications were continued and atorvastatin was increased from 40 mg to 80 mg once daily. As the patient was Danish speaking, a nurse was used as a sand screener and the patient was educated regarding the importance of compliance of medication and advised to follow up with his PCP, Cardiology and Cardiovascular surgery after discharge. The patient voiced understanding. Java Oracle Developer(s): Cardiology Impression and Plan: PAD Hypertension Hyperlipidemia Past tobacco abuse with cessation 5 months ago NSTEMI approximately 2 wk ago in 12/2024 Coronary angiogram approximately 2 weeks ago demonstrating nonobstructive CAD Claudication PAD Left lower extremity arterial ultrasound was reported to have a total occlusion of the left proximal popliteal artery with collateral circulation and distal popliteal reconstitution with monophasic waveforms distally. Peripheral angiogram of the left lower extremity on 12/30/[address] Nicole Preciado, s/p successful mechanical thrombectomy followed by balloon angioplasty of the left popliteal artery and successful MOLD RUNNER to the left posterior tibial artery. Repeat left lower extremity arterial Doppler on 01/08/2025 revealed monophasic waveforms from the mid and distal superficial femoral artery to the dorsalis pedis artery, no appreciable flow within the popliteal artery consistent with complete occlusion. -Pending evaluation by CV surgery for a fem-pop. -DAPT is on hold, continue Heparin infusion -Obtain coronary angiogram, echocardiogram, and cardiology notes from [facility] Cardiovascular surgery HISTORY OF PRESENT ILLNESS: The patient is a 59-year-old gentleman who had peripheral arterial disease, had interventions done at an outside facility, mainly percutaneous with reestablishment of flow down to the lower extremity. Unfortunately, his popliteal artery reoccluded and Vascular Surgery was consulted for further management. PHYSICAL EXAMINATION: NEUROLOGIC: Alert and oriented. CARDIOVASCULAR: S1, S2. Regular rate and rhythm. RESPIRATORY: Clear to auscultation bilaterally. ASSESSMENT AND PLAN: This is a 59-year-old gentleman with peripheral arterial disease including the popliteal artery on the left lower extremity and claudication. He will need a left femoral to posterior tibial bypass to bypass this occluded popliteal artery. I will explain the benefits and the risks including loss of limb, loss of light, bleeding, infection, stroke, and if he agrees, we will proceed with surgery in the upcoming days. General surgery Plan: This point in time images of concerning abscess taken to share with Dr. Zhu With no significant induration we will continue with conservative management Patient to start with warm compresses Surgical team to re-evaluate patient tomorrow Nursing report any further acute events Surgical case has been discussed with my supervising physician in the above plan was formulated and agreed upon Procedure(s): IMAGING REPORT Signed PATIENT: DEMARCUS CARLIN MR#: [id number] : 1965 SEX: M AGE: 59 LOCATION: [facility] ORDER 08 STATUS: ADM IN REPORT#: [id number] SERVICE 05 REASON: EXAM FOR OCCLUDED POPLITEAL ARTERY ORDERING PHYSICIAN: MAULIK BAL MD PROCEDURE: CTA ABDAOR - CT ANGIO ABD AORTA W RUNOFF EXAM: CTA Abdomen and Pelvis With Runoff to the Lower Extremities with Intravenous Contrast. CLINICAL HISTORY: Evaluation for occluded popliteal artery. TECHNIQUE: Axial CTA images of the abdomen, pelvis, and lower extremities with intravenous contrast in the arterial phase, with coronal and sagittal reformatted images generated and reviewed. 3D reformatted images were generated on an independent workstation and also reviewed. CONTRAST: Omnipaque 350. COMPARISON: None provided FINDINGS: VASCULATURE Aorta and Branches The abdominal aorta demonstrates eccentric atheromatous calcified plaques, causing approximately 20???30% luminal narrowing. No evidence of abdominal aortic aneurysm or dissection. The celiac trunk is patent without significant stenosis or occlusion. Superior mesenteric artery is patent without significant stenosis or occlusion. The inferior mesenteric artery is patent without significant stenosis or occlusion. The right renal artery shows eccentric atheromatous calcified plaque at the origin, causing approximately 20???30% luminal narrowing. The left renal artery is patent without significant stenosis. Right Lower Extremity Arterial System The right common iliac artery shows eccentric atheromatous calcific plaques causing approximately 20???30% luminal narrowing. The right external iliac artery shows eccentric atheromatous calcific plaques causing approximately 20???30% luminal narrowing. The right internal iliac artery shows eccentric atheromatous calcific plaques causing approximately 20???30% luminal narrowing. The right common femoral artery shows eccentric atheromatous calcified plaques causing approximately 20???30% luminal narrowing. The right profunda femoris artery shows eccentric atheromatous calcific plaques causing approximately 30???40% luminal narrowing. The right superficial femoral artery shows eccentric atheromatous calcific plaques causing approximately 30???40% luminal narrowing. The right popliteal artery shows eccentric atheromatous calcified plaques causing approximately 50???60% luminal narrowing. The right tibioperoneal trunk shows eccentric atheromatous calcific plaques causing approximately 50???60% luminal narrowing. There is non-opacification of the distal right posterior tibial artery with significantly attenuated luminal caliber, consistent with thrombosis. Left Lower Extremity Arterial System Left common iliac artery shows eccentric atheromatous calcific plaques, causing approximately 40???50% luminal narrowing. The left external iliac artery shows eccentric atheromatous calcific plaques causing approximately 20???30% luminal narrowing. Left internal iliac artery shows eccentric atheromatous calcific plaques causing approximately 20???30% luminal narrowing. The left common femoral artery shows eccentric atheromatous calcified plaques causing approximately 20???30% luminal narrowing. Left profunda femoris artery shows eccentric atheromatous calcific plaques causing approximately 30???40% luminal narrowing. Left superficial femoral artery shows eccentric atheromatous calcific plaques causing approximately 40???50% luminal narrowing. There is a short segment of near-complete luminal thrombosis of the left popliteal artery with recanalized flow in the distal segment. The remainder of the left popliteal artery shows eccentric atheromatous calcific plaques causing approximately 60???70% luminal narrowing. Left tibioperoneal trunk shows eccentric atheromatous calcific plaques causing approximately 60???70% luminal narrowing. Left anterior tibial artery origin shows eccentric atheromatous calcific plaques causing approximately 60???70% luminal narrowing. LOWER THORAX No basilar airspace consolidation. ABDOMEN The liver is unremarkable without a focal mass. No calcified gallstones or biliary ductal dilatation. The pancreas is normal. The spleen is unremarkable. No adrenal mass. The kidneys are enhanced symmetrically without hydronephrosis or a solid mass. There is colonic diverticulosis without diverticulitis. No bowel wall thickening or obstruction. The appendix appears normal. PELVIS The urinary bladder is unremarkable. Reproductive organs are unremarkable as visualized. No free fluid or free air is identified. No lymphadenopathy is seen. Multilevel moderate degenerative changes are seen in the spine without acute osseous abnormality. LOWER EXTREMITIES (Soft Tissues and Bones) Soft tissues are unremarkable. No lymphadenopathy is identified. No acute osseous abnormality. IMPRESSION: Near-complete occlusive thrombus in the left popliteal artery with distal recanalization. Thrombosis of the distal right posterior tibial artery. Multilevel severe atherosclerotic disease involving the bilateral iliac, femoral, popliteal, and tibial arterial systems, with the most significant stenoses involving the left popliteal artery (60???70%), left tibioperoneal trunk (60???70%), and left anterior tibial artery origin (60???70%). Mild to moderate luminal narrowing (20???50%) in the abdominal aorta, right renal artery origin, and remaining segments of the bilateral iliac and femoral arteries. Colonic diverticulosis without evidence of diverticulitis. Multilevel degenerative changes in the spine. /[place] DICTATED BY: HEIDI WEISS Jr., MD DATE: 01/10/252155 ELECTRONICALLY SIGNED BY: HEIDI WEISS Jr., MD DATE: 01/10/252155 IMAGING REPORT Signed PATIENT: DEMARCUS CARLIN MR#: [id number] : 1965 SEX: M AGE: 59 LOCATION: [facility] ORDER 134 STATUS: ADM IN REPORT#: [id number] SERVICE 1344 REASON: boil on right shoulder scapula ORDERING PHYSICIAN: ANGEL ESTEBAN MD PROCEDURE: SOFT UBACK - US SOFT TISSUE UPPER BACK EXAMINATION: SOFT TISSUE ULTRASOUND OF THE RIGHT SCAPULAR REGION. CLINICAL HISTORY: Palpable swelling. COMPARISON: None. TECHNIQUE: Transverse and longitudinal images were obtained in the right scapular region. FINDINGS: There is a complex collection in the subcutaneous plane of the right scapular region that measures 2.4 x 0.8 x 2.2 cm in craniocaudal, AP, and transverse dimensions respectively. There is increased peripheral vascularity. IMPRESSION: Possible subcutaneous abscess in the right scapular region. Contrast enhanced CT or MR may be considered. /[place] DICTATED BY: BROCK DESAI MD DATE: 01/12/25953 ELECTRONICALLY SIGNED BY: BROCK DESAI MD DATE: 01/12/25953 IMAGING REPORT Signed PATIENT: DEMARCUS CARLIN MR#: [id number] : 1965 SEX: M AGE: 59 LOCATION: [facility] ORDER 1 STATUS: ADM IN REPORT#: [id number] SERVICE 9 REASON: Recent Non STEMI ORDERING PHYSICIAN: KJ WRIGHT MD PROCEDURE: ECHO CMP - ECHO 2-D COMPLETE APPROVED REPORT EXAM: Two-dimensional and M-mode echocardiogram with Doppler and color Doppler. INDICATION ICD: recent NSTEMI 2D Dimensions RVDd 3.1 cm LVEF(%) 57.5 (>50%) LVED Vol(simp.) 114.0 mL IVSd 0.8 (0.7-1.1cm) FS(%) 30 % LVES Vol(simp.) 43.0 mL LVDd 4.8 (3.8-5.6cm) LA (2D) 2.7 (1.6-4.0cm) LVEF(%, simp.) 63 % PWd 0.9 (0.7-1.1cm) Ao Root(2D) 2.1 (2.0-3.7cm) LA ESV INDEX (BP) 23.74 mL/m2 LVDs 3.4 (2.5-4.0cm) LVOT diam 2.2 (1.8-2.4cm) IVC diam 1.6 cm Deformation Strain Apical 4 -19.5 % Apical 2 -21.5 % Apical 3 -15.8 % Global Strain -18.9 % Aortic Valve AoV Vmax 1.4 m/s Ao Peak GR 7.8 mmHg LVOT Vmax 1.1 m/s AoV VTI 0.3 m Ao Mean GR 3.8 mmHg LVOT VTI 0.21 m DELIA (VMAX) 2.97 cm2 DELIA (VTI) 2.4 cm2 Mitral Valve MV E Vmax 63.6 cm/s DECEL Time 198 ms MV A Vmax 70.0 cm/s P 1/2 T 60 ms E/A ratio 0.9 MVA (PHT) 3.7 cm2 TDI E/E' Medial 7.4 E/E' Lateral 6.7 Medial E' Peak V 8.65 cm/s Lateral E' Peak V 9.56 cm/s Pulmonary Valve PV Vmax 1.2 m/s PV VTI 0.26 m PV Mean GR 2.9 mmHg PV Peak GR 5.9 mmHg Tricuspid Valve TR Vmax 2.1 m/s RVSP 15.4 mmHg TR Peak GR 19.7 mmHg Left Ventricle The left ventricle is normal size. There is normal left ventricular wall thickness. LVEF is 60-65%. The left ventricular diastolic function is normal. Right Ventricle The right ventricle is normal size. The right ventricular systolic function is normal. Atria The left atrium size is normal. The right atrium size is normal. Aortic Valve The aortic valve is normal in structure. No aortic regurgitation is present. There is no aortic valvular stenosis. Mitral Valve The mitral valve is normal in structure. There is no mitral valve regurgitation noted. There is no mitral valve stenosis. Tricuspid Valve The tricuspid valve is normal in structure. There is no tricuspid valve regurgitation noted. Pulmonic Valve The pulmonary valve is normal in structure. There is no pulmonic valvular regurgitation. Great Vessels The aortic root is normal in size. The IVC is normal in size and collapses >50% with inspiration. Pericardium There is no pericardial effusion. Conclusion LVEF is 60-65%. DICTATED BY: KJ WRIGHT MD DATE: 01/12/25 1156 ELECTRONICALLY SIGNED BY: KJ WRIGHT MD DATE: 01/12/25 1327 IMAGING REPORT Signed PATIENT: DEMARCUS CARLIN MR#: [id number] : 1965 SEX: M AGE: 59 LOCATION: [facility] ORDER 1005 STATUS: ADM IN REPORT#: [id number] SERVICE 0947 REASON: Possible subcutaneous abscess in the right scapular region ORDERING PHYSICIAN: SHEREEN VALVERDE MD PROCEDURE: UPP EXTWWO - CT UPPER EXT W/WO CONTRAST EXAM: CT UPPER EXTREMITY, RIGHT, WITH AND WITHOUT INTRAVENOUS CONTRAST Technique: Noncontrast and contrast-enhanced helical computed tomography of the right posterior scapular region with multiplanar reformations; iterative reconstruction applied. CTDIvol 17.60 mGy; DLP 470.10 mGy???cm. Contrast: Standard dose of intravenous contrast administered. Clinical Information: Possible subcutaneous abscess in the right scapular region. Findings: Soft tissues: Ill-defined subcutaneous fluid collection in the right posterior scapular region measuring approximately 3.0 ??? 1.7 ??? 2.4 cm (anteroposterior ??? transverse ??? craniocaudal). The collection demonstrates peripheral enhancement compatible with an organizing fluid collection/abscess. Surrounding subcutaneous fat stranding is present. Muscles: Adjacent shoulder girdle musculature is preserved without intramuscular collection. Bones/joints: Scapula, clavicle, and visualized humeral head show no cortical destruction or acute osseous abnormality. Neurovascular structures: No regional vascular complication is identified on this study. Chest wall/lung apices (limited): No focal abnormality in the imaged portions. Impression: * Comparison: Compared with ultrasound of the soft tissues of the upper back dated 01/11/2025 19:08 EDT, there remains a right posterior scapular subcutaneous fluid collection???sonographically complex and on computed tomography measuring approximately 3.0 ??? 1.7 ??? 2.4 cm???with peripheral enhancement consistent with a superficial abscess; surrounding cellulitic change is present. * No evidence of intramuscular extension or osseous involvement on computed tomography. * Correlate clinically for signs of infection; consider targeted incision and drainage or image-guided aspiration for culture and sensitivity, and antibiotic therapy per institutional protocol. /[place] DICTATED BY: JENNIFER ALFREDO MD DATE: 01/13/25121 ELECTRONICALLY SIGNED BY: JENNIFER ALFREDO MD DATE: 01/13/25121 Surgery operative note 01/14/25 1208 - BEATA TREVINO RN: [facility] Cryopreserved Cardiac and Vascular Allograft Bio-Implant Vein: SERIAL NUMBER ([id number] ) ID NUMBER ([id number] ) EXP. DATE (2031-01-13 ) 1. Inspected the bio-implant, inner and outer package integrity 2. NON-STERILE FINANCE BUSINESS PARTNER: Using insulated gloves, retrieve the packaged bio-implant from appropriate storage location. 3. Open the box lid and place at room temerature for 7 minutes on a stable surface. 4. While the bio-implant is thawing, pour a minimum of 2000ml warmed sterile saline solution into the first sterile major basin. Add enough room temperature sterile saline to maintain a temperature at 37 - 42 degrees Celcius. REFERENCE NUMBER ([id number] ) LOT NUMBER ([id number] ) EXP. DATE (2027-08 ) 5. After 7 minutes elapsed, remove the bio-implant from its box, open the outer peel pack and present the inner pouch to the Sterile Certified Surgical First Assistant. 6. STERILE FINANCE BUSINESS PARTNER: Using a non-toothed clamp, firmly grasp the inner pouch by the sealed edge and remove from outer peel pack. 7. Slowly lower inner pouch into the pre-filled major basin. The sterile saline to maintain a temperature at 37 - 42 degrees Celcius. REFERENCE NUMBER ([id number] ) LOT NUMBER ([id number] ) EXP. DATE (2027-08 ) 8. Gently agitate pouch periodically for 5-7 minutes until ice is melted. Do not manipulate the bio-implant. 9. Once the bio-implnat has thawed, dry the outside of the puch thoroughly. Open with scissors. DILUTIONS INSTRUCTIONS: FOR VASCULAR IMPLANTS 10. Second sterile major basin filled with 1000ml of room temperature D5LR REFERENCE NUMBER ([id number] ) LOT NUMBER ([id number] ) EXP. DATE (02/06 ) 11. Bio-implant is removed from the pouch with smooth forceps and carefully placed into the basin containing the D5LR. Cut the non-cannulated end of the vessel at suture tie to allow perfusion. 12. Using a 20cc syringe, gently flush the bio-implant with 20ml of D5LR. 13. Fully submerge the bio-implant for 10 minutes and then gently flush the bio-implant again with 20ml of D5LR Assessment/Plan: ASSESSMENT: Peripheral arterial disease POA Peripheral vascular disease POA S/P peripheral angogram with MOLD RUNNER POA Left proximal popliteal artery occlusion POA Worsening intermittent claudication POA Essential Hypertension POA Hyperlipidemia POA Coronary artery disease POA Hyperglycemia POA Nicotine dependence POA Alcoholism POA Soft tissue swelling Discharge Instructions: *Follow up with your primary care physician in 2 - 3 days after discharge. *Follow up with cardiology in 1-2 weeks *Follow up with cardiovascular surgery in 1-2 weeks *Continue all medications as prescribed. Do not discontinue or change dosages without consulting your PCP. *Gradually resume normal activities as tolerated. *Continue a balanced diet . Reduce salt intake to help manage BP. *Seek immediate medical attention if you experience chest pain, SOB or severe headache. Home Medications: Active Scripts Aspirin (Aspirin) 81 Mg Tab.chew, 1 TAB PO DAILY for 30 Days, #30 TAB 0 Refills Prov:LEVY DE ANDA MD 01/16/25 Clopidogrel Bisulfate (Plavix) 75 Mg Tablet, 1 TAB PO DAILY for 30 Days, #30 TAB 0 Refills Prov:LEVY DE ANDA MD 01/16/25 Atorvastatin Calcium (LIPITOR) 80 Mg Tablet, 1 TAB PO DAILY for 30 Days, #30 TAB 0 Refills Prov:LEVY DE ANDA MD 01/16/25 Reported Medications Gabapentin (Gabapentin) 100 Mg Capsule, 200 MG PO BID, CAP 01/09/25 Carvedilol (Carvedilol) 3.125 Mg Tablet, 1 TAB PO BID for 30 Days, #60 TAB 0 Refills 01/09/25 Amlodipine Besylate (Amlodipine Besylate) 10 Mg Tablet, 1 TAB PO DAILY for 30 Days, #30 TAB 0 Refills 01/09/25 Discontinued Reported Medications Atorvastatin Calcium (Atorvastatin Calcium) 40 Mg Tablet, 1 TAB PO HS for 30 Days, #30 TAB 0 Refills 01/09/25 New Medications: Aspirin (Aspirin) 81 Mg Tab.chew 1 TAB PO DAILY for 30 Days, #30 TAB 0 Refills Atorvastatin Calcium (Lipitor) 80 Mg Tablet 1 TAB PO DAILY for 30 Days, #30 TAB 0 Refills Clopidogrel Bisulfate (Plavix) 75 Mg Tablet 1 TAB PO DAILY for 30 Days, #30 TAB 0 Refills Continued Medications: Amlodipine Besylate (Amlodipine Besylate) 10 Mg Tablet 1 TAB PO DAILY for 30 Days, #30 TAB 0 Refills Carvedilol (Carvedilol) 3.125 Mg Tablet 1 TAB PO BID for 30 Days, #60 TAB 0 Refills Gabapentin (Gabapentin) 100 Mg Capsule 200 MG PO BID, CAP Discontinued Medications: Atorvastatin Calcium (Atorvastatin Calcium) 40 Mg Tablet 1 TAB PO HS for 30 Days, #30 TAB 0 Refills Time spent arranging discharge: 1-30 minutes ATTESTATION BY PHYSICIAN I have seen and examined the patient. I reviewed the documentation, medical decision making, and treatment plan as noted by the resident physician above. I agree with the findings and plan of care. MAG RESTREPO MD, SYED M MD Jan 16, 2025 14:50
== END 2025-01-16 13:35 | disposition home or self-care (01) | DRG 253 ==
LOC: 2BH 17:48 → 2DH 01-10 15:40
PROVIDERS: ADMIT Internal Medicine; ATTEND Internal Medicine
PROC: 041L0ZN Bypass Left Femoral Artery to Posterior Tibial Artery, Open Approach (ICD-10-PCS; principal; 2025-01-14 11:11)
DX: I70.202 Unspecified atherosclerosis of native arteries of extremities, left leg (principal); I70.92 Chronic total occlusion of artery of the extremities; N17.9 Acute kidney failure, unspecified; F10.20 Alcohol dependence, uncomplicated; I10 Essential (primary) hypertension; L97.528 Non-pressure chronic ulcer of other part of left foot with other specified severity; E78.5 Hyperlipidemia, unspecified; I25.10 Atherosclerotic heart disease of native coronary artery without angina pectoris; K57.30 Diverticulosis of large intestine without perforation or abscess without bleeding; F17.210 Nicotine dependence, cigarettes, uncomplicated; I25.2 Old myocardial infarction; Z79.899 Other long term (current) drug therapy
CPT/HCPCS: 36415; 73202; 75635; 76604; 80048; 80053; 80061; 82550; 82948; 83036; 83735; 84145; 84443; 85025; 85027; 85610; 85730; 86140; 86850; 86900; 86901; 87040; 93306; 93356; G0378; J0330; J0690; J1100; J1644; J2003; J2250; J2405; J2704; J2710; J3010; J3490; J7030; Q9967; A4216; A4222; A4223; A4649; A4663; A4930; C1713; C1768; J1308